=== PATIENT | male | born 1975 | race Caucasian/White ===

== ENCOUNTER 2023-03-02 03:57 | Day surgery (SDC) | payer MEDICARE | END 2023-03-02 23:03 | disposition home or self-care (01) | LOC: WOUND 03:57 | DX: L89.224 Pressure ulcer of left hip, stage 4 (principal); S30.810A Abrasion of lower back and pelvis, initial encounter; L89.153 Pressure ulcer of sacral region, stage 3; E11.69 Type 2 diabetes mellitus with other specified complication | CPT/HCPCS: A9270; G0463 ==

== ENCOUNTER 2023-03-10 04:24 | Day surgery (SDC) | payer MEDICARE | END 2023-03-10 22:58 | disposition home or self-care (01) | LOC: WOUND 04:24 | DX: L89.324 Pressure ulcer of left buttock, stage 4 (principal); S31.809A Unspecified open wound of unspecified buttock, initial encounter; E11.9 Type 2 diabetes mellitus without complications | CPT/HCPCS: A9270; G0463 ==

== ENCOUNTER 2023-03-16 01:54 | Day surgery (SDC) | payer MEDICARE, OTHER | END 2023-03-16 22:46 | disposition home or self-care (01) | LOC: WOUND 01:54 | DX: L89.324 Pressure ulcer of left buttock, stage 4 (principal); L89.153 Pressure ulcer of sacral region, stage 3; E11.69 Type 2 diabetes mellitus with other specified complication; G82.50 Quadriplegia, unspecified | CPT/HCPCS: A9270; G0463 ==

== ENCOUNTER 2023-03-30 05:05 | Day surgery (SDC) | payer MEDICARE, OTHER | END 2023-03-30 22:43 | disposition home or self-care (01) | LOC: WOUND 05:05 | DX: L89.224 Pressure ulcer of left hip, stage 4 (principal); L89.893 Pressure ulcer of other site, stage 3; E11.9 Type 2 diabetes mellitus without complications; E78.49 Other hyperlipidemia; L89.304 Pressure ulcer of unspecified buttock, stage 4; Z79.899 Other long term (current) drug therapy | CPT/HCPCS: 36415; 80053; 80061; 83036; 84443; 85025; A9270; G0463 ==

== ENCOUNTER 2023-04-06 06:28 | Inpatient (IN) | payer MEDICARE, OTHER ==
[~2023-04-06] VITALS: Ht 182.9 cm; Wt 95.2 kg
[2023-04-06] MEDS ORDERED: FAMO20 PO (06:47)
[2023-04-06] MEDS ORDERED: ATORVASTATIN CA20 MG PO (06:47)
[2023-04-06] MEDS ORDERED: BACL20 PO (06:47)
[2023-04-06] MEDS ORDERED: GLIP5 PO (06:48)
[2023-04-06] MEDS ORDERED: METF500 PO (06:52)
[2023-04-06] MEDS ORDERED: MIDO5 PO (06:52)
[2023-04-06 07:00] LABS: BASOPHILS ABSOLUTE AUTO 0.02 K/mm3 (0.00-0.23); BASOPHILS PERCENT AUTO 0 % (0-2); EOSINOPHILS PERCENT AUTO 0 % (0-6); Hematocrit 44.2 % (37.0-53.0); Hemoglobin 14.7 g/dL (13.5-17.5); IMMATURE GRAN ABSOLUTE AUTO 0.08 K/mm3 (0.00-0.10); IMMATURE GRAN PERCENT AUTO 0 % (0-1); LYMPHOCYTES ABSOLUTE AUTO 0.86 K/mm3 (0.84-5.20); LYMPHOCYTES PERCENT AUTO 5 % (21-46); MONOCYTES ABSOLUTE AUTO 0.82 K/mm3 (0.16-1.47); MONOCYTES PERCENT AUTO 4 % (4-13); Mean Corpuscular HGB 27.9 pg (26.0-34.0); Mean Corpuscular HGB Conc 33.3 g/dL (31.5-36.5); Mean Corpuscular Volume 84 fL (80-100); Mean Platelet Volume 9.5 fL (9.1-12.4); NEUTROPHILS ABSOLUTE AUTO 16.82 K/mm3 (1.96-9.15); NEUTROPHILS PERCENT AUTO 91 % (41-73); Platelet Count 315 K/mm3 (150-400); RDW Coefficient Variation 13.4 % (11.7-14.2); RDW Standard Deviation 40.4 fL (35.1-46.3); Red Blood Cell Count 5.26 M/mm3 (4.30-5.90)
[2023-04-06 07:18] LABS: Albumin, Blood 3.5 g/dL (3.4-5.0); Albumin/Globulin Ratio 0.7 (0.8-1.8); Bilirubin, Total 0.5 mg/dL (0.1-1.0); Bun/Creatinine Ratio 13.3 (12.0-20.0); Calcium, Blood 10.5 mg/dL (8.5-10.1); Creatinine, Blood 0.83 mg/dL (0.60-1.20); Potassium, Blood 4.5 mmol/L (3.5-5.5); Total Protein, Blood 8.5 g/dL (6.4-8.2)
[2023-04-06 08:23] LABS: Source, Urine Suprapubic Cath
[2023-04-06 08:44] LABS: Appearance, Urine Turbid (Clear); Blood, Urine 5+ (Neg); Color, Urine Yellow (P-Yellow); Glucose Qualitative, Urine Neg (Neg); Ketones, Urine 1+ (Neg); Leukocyte Esterase, Urine 3+ (Neg); Nitrite, Urine Pos (Neg); Protein, Urine 3+ (Neg); Specific Gravity, Urine 1.025 (1.003-1.022); Urobilinogen, Urine 3+ (Normal)
[2023-04-06 08:51] LABS: Bilirubin, Urine 1+ (Neg)
[2023-04-06 08:53] LABS: Bacteria Many /hpf; Calcium Oxalate Crystals Few /hpf; Squamous Epithelial Cells Rare /hpf (Few)
[2023-04-06 08:54] LABS: Amorphous Mod (0-Heavy)
[2023-04-06 10:29] VITALS: BP 110/65
--- NOTE | 2023-04-06 15:46 | NUR ---
WOUND CARE ORDER RECIEVED FOR SPECIAL MATTRESS. BED ORDERED THROUGH NURSING TEACHER SPECIALIST OFFICE. MAY ARRIVE THIS EVENING. PT AWARE. WOUND CARE PICTURE TAKEN PER PROTOCOL. POSTED IN CHART. WOUND CARE DONE. CLEANED WOUND WITH WOUND BRIQUETTE MOLDER, PACKED WITH WET 4X4 AND COVERED WITH PINK FOAM. SECURED WITH MEPILIEX TAPE. WOUND CARE CONSULT ORDERED. CONTINUE POC.
[2023-04-06 15:49] VITALS: BP 97/60
--- NOTE | 2023-04-06 18:08 | NUR ---
AIR BED AIR BED DELIVERED. PT TRANSFERED TO NEW AUTO TURNING AIR BED. PT TOLERATED WELL. CONTINUE POC.
--- NOTE | 2023-04-06 18:26 | NUR ---
NOTE PT ALERT, COOPERATIVE. AIR BED HERE. LARGE AMOUNT OF SOFT, BROWN STOOL OUT OSTOMY. APPLIANCE INTACT. VSS. PT HUNGRY. STILL NPO. SOFT TOUCH CALL LIGHT AFFIXED TO PILLOW NEXT TO HEAD. PT DECLINED THE AUTO TURN FUNCTION ON BED. HE IS USING HIS COMPUTER. DENIED PAIN, SOB. HE FEELS HIS STOMACH IS MUCH IMPROVED. IVF INFUSING AT 125 ML/HR. CONTINUE POC.
[2023-04-06 19:43] VITALS: BP 143/118
[2023-04-07 03:06] VITALS: BP 159/93
--- NOTE | 2023-04-07 04:41 | NUR ---
ALBERT SLEPT WELL AND HAD A COMFORTABLE NIGHT. MULTIPLE LOOSE BROWN STOOLS VIA COLONOSCOPY. PATIENT WAS ABLE TO DRINK AN ENTIRE CHOCHOLATE ENSURE WITHOUT DIFFICULTY. NO COMPLAINTS OR INDICATIONS OF PAIN OR DISCOMFORT.
[2023-04-07 06:17] LABS: Bun/Creatinine Ratio 13.1 (12.0-20.0); Calcium, Blood 9.2 mg/dL (8.5-10.1); Creatinine, Blood 0.69 mg/dL (0.60-1.20); Potassium, Blood 3.7 mmol/L (3.5-5.5)
[2023-04-07 07:13] VITALS: BP 149/87
--- NOTE | 2023-04-07 10:57 | NUR ---
WOUND CARE CALLED WOUND CARE CLINIC TO REQUEST PT BE SEEN BEFORE DISCHARGE.
[2023-04-07] MEDS ORDERED: DOCU100 PO (11:29)
[2023-04-07] MEDS ORDERED: MIRALAX17 GM PO (11:30)
[2023-04-07] MEDS ORDERED: DULCOLAX400 MG/5 M PO (11:30)
--- NOTE | 2023-04-07 12:11 | NUR ---
WOUND CARE CALLED WOUND CARE CLINIC TO CONFIRM TIME THAT PT COULD BE SEEN BEFORE DISCHARGE. TIME CONFIRMED FOR TIME BETWEEN 13:15-14:30.
--- NOTE | 2023-04-07 16:16 | NUR ---
DISCHARGE NOTE PT DISCHARGED AT APPROX 1400. PT WAS PROVIDED WITH WRITTEN AND VERBAL INSTRUCTIONS AND REPORTED UNDERSTANDING. PT A&OX4, VSS, TOLERATING PO, VOIDING APPROPRIATELY VIA SUPRAPUBIC CATHETER AND OSTOMY, REPORTED NO PAIN, AND IV REMOVED AND DRESSED WITH GAUZE AND COBAN. PT'S BELONGINGS WERE RETURNED AND WAS ESCOURTED OUT VIA GURNEY BY [facility] AND MYSELF.
== END 2023-04-07 16:08 | disposition home health service (06) | DRG 389 ==
LOC: ER 06:28 → MEDS 08:43 → SURS 08:43 → MEDS 10:10
PROVIDERS: Emergency Medicine; ADMIT Internal Medicine
DX: K56.609 Unspecified intestinal obstruction, unspecified as to partial versus complete obstruction (principal); E87.1 Hypo-osmolality and hyponatremia; G82.20 Paraplegia, unspecified; R82.90 Unspecified abnormal findings in urine; E11.9 Type 2 diabetes mellitus without complications; E78.5 Hyperlipidemia, unspecified; D72.829 Elevated white blood cell count, unspecified; K21.9 Gastro-esophageal reflux disease without esophagitis; Z87.442 Personal history of urinary calculi; Z93.3 Colostomy status; Z93.0 Tracheostomy status; Z98.1 Arthrodesis status; Z98.890 Other specified postprocedural states; Z87.891 Personal history of nicotine dependence; Z79.84 Long term (current) use of oral hypoglycemic drugs; Z79.899 Other long term (current) drug therapy
CPT/HCPCS: 36415; 74176; 80048; 80053; 81001; 82947; 85025; 87086; 96361; 96365; 99285-25; A9270; J0696; J1650; J7030

== ENCOUNTER 2023-04-13 01:11 | Day surgery (SDC) | payer MEDICARE, OTHER ==
[~2023-04-13 01:11] MED LIST: ATORVASTATIN CA20 MG PO; BACL20 PO; DOCU100 PO; DULCOLAX400 MG/5 M PO; FAMO20 PO; GLIP5 PO; METF500 PO; MIDO5 PO; MIRALAX17 GM PO
== END 2023-04-13 22:47 | disposition home or self-care (01) ==
LOC: WOUND 01:11
DX: L89.224 Pressure ulcer of left hip, stage 4 (principal); N50.89 Other specified disorders of the male genital organs; L89.893 Pressure ulcer of other site, stage 3; E11.9 Type 2 diabetes mellitus without complications
CPT/HCPCS: A9270

== ENCOUNTER 2023-04-22 00:45 | Day surgery (SDC) | payer MEDICARE, OTHER | END 2023-04-22 22:48 | disposition home or self-care (01) | LOC: WOUND 00:45 | DX: L89.224 Pressure ulcer of left hip, stage 4 (principal); L89.893 Pressure ulcer of other site, stage 3; E11.69 Type 2 diabetes mellitus with other specified complication; L89.324 Pressure ulcer of left buttock, stage 4 ==

== ENCOUNTER → 2023-04-27 | Outpatient (CLI) | payer MEDICARE, OTHER | END | disposition home or self-care (01) | LOC: LAB SHORT 14:07 → LAB 14:07 | DX: R30.0 Dysuria (principal) | CPT/HCPCS: 87086 ==

== ENCOUNTER 2023-05-18 02:23 | Day surgery (SDC) | payer MEDICARE, OTHER | END 2023-05-18 23:46 | disposition home or self-care (01) | LOC: WOUND 02:23 | DX: L89.324 Pressure ulcer of left buttock, stage 4 (principal); L89.92 Pressure ulcer of unspecified site, stage 2; E11.69 Type 2 diabetes mellitus with other specified complication; M86.9 Osteomyelitis, unspecified ==

== ENCOUNTER 2023-05-25 02:32 | Day surgery (SDC) | payer MEDICARE, OTHER | END 2023-05-25 23:19 | disposition home or self-care (01) | LOC: WOUND 02:32 | DX: L89.224 Pressure ulcer of left hip, stage 4 (principal); L89.324 Pressure ulcer of left buttock, stage 4; L89.92 Pressure ulcer of unspecified site, stage 2; E11.69 Type 2 diabetes mellitus with other specified complication; G82.50 Quadriplegia, unspecified ==

== ENCOUNTER 2023-06-01 05:06 | Day surgery (SDC) | payer MEDICARE, OTHER | END 2023-06-01 23:04 | disposition home or self-care (01) | LOC: WOUND 05:06 | DX: L89.224 Pressure ulcer of left hip, stage 4 (principal); L89.324 Pressure ulcer of left buttock, stage 4; L89.892 Pressure ulcer of other site, stage 2; E11.69 Type 2 diabetes mellitus with other specified complication ==

== ENCOUNTER 2023-06-08 02:34 | Day surgery (SDC) | payer MEDICARE, OTHER | END 2023-06-08 22:48 | disposition home or self-care (01) | LOC: WOUND 02:34 | DX: L89.324 Pressure ulcer of left buttock, stage 4 (principal); L89.92 Pressure ulcer of unspecified site, stage 2; E11.69 Type 2 diabetes mellitus with other specified complication ==

== ENCOUNTER 2023-06-15 04:46 | Day surgery (SDC) | payer MEDICARE, OTHER | END 2023-06-15 23:14 | disposition home or self-care (01) | LOC: WOUND 04:46 | DX: L89.324 Pressure ulcer of left buttock, stage 4 (principal); L89.92 Pressure ulcer of unspecified site, stage 2 ==

== ENCOUNTER 2023-06-22 02:00 | Day surgery (SDC) | payer MEDICARE, OTHER | END 2023-06-22 22:50 | disposition home or self-care (01) | LOC: WOUND 02:00 | DX: L89.324 Pressure ulcer of left buttock, stage 4 (principal); L89.92 Pressure ulcer of unspecified site, stage 2; E11.69 Type 2 diabetes mellitus with other specified complication | CPT/HCPCS: 72170; G0463 ==

== ENCOUNTER 2023-06-29 06:12 | Day surgery (SDC) | payer MEDICARE, OTHER | END 2023-06-29 22:58 | disposition home or self-care (01) | LOC: WOUND 06:12 | DX: L89.324 Pressure ulcer of left buttock, stage 4 (principal); L89.92 Pressure ulcer of unspecified site, stage 2; E11.69 Type 2 diabetes mellitus with other specified complication ==

== ENCOUNTER 2023-07-06 02:28 | Day surgery (SDC) | payer MEDICARE, OTHER | END 2023-07-06 22:44 | disposition home or self-care (01) | LOC: WOUND 02:28 | DX: L89.224 Pressure ulcer of left hip, stage 4 (principal); L89.92 Pressure ulcer of unspecified site, stage 2; E11.69 Type 2 diabetes mellitus with other specified complication; R53.2 Functional quadriplegia | CPT/HCPCS: G0463 ==

== ENCOUNTER 2023-07-13 01:55 | Day surgery (SDC) | payer MEDICARE, OTHER | END 2023-07-13 22:35 | disposition home or self-care (01) | LOC: WOUND 01:55 | DX: L89.324 Pressure ulcer of left buttock, stage 4 (principal); L89.92 Pressure ulcer of unspecified site, stage 2; E11.69 Type 2 diabetes mellitus with other specified complication; R53.2 Functional quadriplegia | CPT/HCPCS: G0463 ==

== ENCOUNTER 2023-07-20 02:13 | Day surgery (SDC) | payer MEDICARE, OTHER | END 2023-07-20 22:45 | disposition home or self-care (01) | LOC: WOUND 02:13 | DX: L89.324 Pressure ulcer of left buttock, stage 4 (principal); L89.92 Pressure ulcer of unspecified site, stage 2; E11.69 Type 2 diabetes mellitus with other specified complication; R53.2 Functional quadriplegia | CPT/HCPCS: G0463 ==

== ENCOUNTER 2023-07-27 03:17 | Day surgery (SDC) | payer MEDICARE, OTHER | END 2023-07-27 22:52 | disposition home or self-care (01) | LOC: WOUND 03:17 | DX: L89.324 Pressure ulcer of left buttock, stage 4 (principal); L89.92 Pressure ulcer of unspecified site, stage 2; E11.69 Type 2 diabetes mellitus with other specified complication; M86.9 Osteomyelitis, unspecified; R53.2 Functional quadriplegia | CPT/HCPCS: G0463 ==

== ENCOUNTER 2023-08-03 01:22 | Day surgery (SDC) | payer MEDICARE, OTHER | END 2023-08-03 22:46 | disposition home or self-care (01) | LOC: WOUND 01:22 | DX: L89.324 Pressure ulcer of left buttock, stage 4 (principal); L89.893 Pressure ulcer of other site, stage 3; L89.92 Pressure ulcer of unspecified site, stage 2; E11.69 Type 2 diabetes mellitus with other specified complication; R53.2 Functional quadriplegia | CPT/HCPCS: A9270; G0463 ==

== ENCOUNTER 2023-08-10 05:20 | Day surgery (SDC) | payer MEDICARE, OTHER | END 2023-08-10 22:50 | disposition home or self-care (01) | LOC: WOUND 05:20 | DX: L89.324 Pressure ulcer of left buttock, stage 4 (principal); L89.92 Pressure ulcer of unspecified site, stage 2; E11.69 Type 2 diabetes mellitus with other specified complication; R53.2 Functional quadriplegia | CPT/HCPCS: G0463 ==

== ENCOUNTER 2023-08-17 02:55 | Day surgery (SDC) | payer MEDICARE, OTHER | END 2023-08-17 22:43 | disposition home or self-care (01) | LOC: WOUND 02:55 | DX: L89.324 Pressure ulcer of left buttock, stage 4 (principal); L89.893 Pressure ulcer of other site, stage 3; E11.69 Type 2 diabetes mellitus with other specified complication; R53.2 Functional quadriplegia | CPT/HCPCS: G0463 ==

== ENCOUNTER 2023-08-31 02:49 | Day surgery (SDC) | payer MEDICARE, OTHER | END 2023-08-31 23:20 | disposition home or self-care (01) | LOC: WOUND 02:49 | DX: L89.324 Pressure ulcer of left buttock, stage 4 (principal); L89.893 Pressure ulcer of other site, stage 3; L89.92 Pressure ulcer of unspecified site, stage 2; E11.69 Type 2 diabetes mellitus with other specified complication; R53.2 Functional quadriplegia | CPT/HCPCS: G0463 ==

== ENCOUNTER 2023-09-07 02:51 | Day surgery (SDC) | payer MEDICARE, OTHER | END 2023-09-07 23:00 | disposition home or self-care (01) | LOC: WOUND 02:51 | DX: L89.324 Pressure ulcer of left buttock, stage 4 (principal); L89.894 Pressure ulcer of other site, stage 4; L89.92 Pressure ulcer of unspecified site, stage 2; L89.604 Pressure ulcer of unspecified heel, stage 4; R53.2 Functional quadriplegia; E11.69 Type 2 diabetes mellitus with other specified complication | CPT/HCPCS: 87070; 87077; 87147; 87186; 87205; G0463 ==

== ENCOUNTER 2023-09-14 02:54 | Day surgery (SDC) | payer MEDICARE, OTHER | END 2023-09-14 23:17 | disposition home or self-care (01) | LOC: WOUND 02:54 | DX: L89.224 Pressure ulcer of left hip, stage 4 (principal); E11.621 Type 2 diabetes mellitus with foot ulcer; L97.522 Non-pressure chronic ulcer of other part of left foot with fat layer exposed; L89.324 Pressure ulcer of left buttock, stage 4; E11.69 Type 2 diabetes mellitus with other specified complication; L89.604 Pressure ulcer of unspecified heel, stage 4; M19.072 Primary osteoarthritis, left ankle and foot; M81.0 Age-related osteoporosis without current pathological fracture; R53.2 Functional quadriplegia | CPT/HCPCS: 36415; 73630; 83036; 85025; 85651; 86140; G0463 ==

== ENCOUNTER 2023-09-21 01:32 | Day surgery (SDC) | payer MEDICARE, OTHER | END 2023-09-21 23:27 | disposition home or self-care (01) | LOC: WOUND 01:32 | DX: L89.224 Pressure ulcer of left hip, stage 4 (principal); E11.621 Type 2 diabetes mellitus with foot ulcer; L97.522 Non-pressure chronic ulcer of other part of left foot with fat layer exposed; L89.324 Pressure ulcer of left buttock, stage 4; R53.2 Functional quadriplegia; L89.604 Pressure ulcer of unspecified heel, stage 4 | CPT/HCPCS: G0463 ==

== ENCOUNTER 2023-09-24 21:00 | Inpatient (IN) | payer OTHER, MEDICARE ==
[~2023-09-24] VITALS: Ht 182.9 cm; Wt 84.8 kg
[2023-09-24] MEDS ORDERED: TIZANIDINE HCL2 M1 PO (21:16)
[2023-09-24] MEDS ORDERED: SULFAMETHOXAZO1 EAC1 PO (21:16)
[2023-09-24] MEDS ORDERED: FENOFIBRATE145 MG PO (21:16)
[2023-09-24] MEDS ORDERED: FAMO20 PO (21:17)
[2023-09-24 21:20] LABS: BASOPHILS ABSOLUTE AUTO 0.03 K/mm3 (0.00-0.23); BASOPHILS PERCENT AUTO 0 % (0-2); EOSINOPHILS ABSOLUTE AUTO 0.02 K/mm3 (0.00-0.68); EOSINOPHILS PERCENT AUTO 0 % (0-6); Hematocrit 42.3 % (37.0-53.0); Hemoglobin 14.3 g/dL (13.5-17.5); IMMATURE GRAN ABSOLUTE AUTO 0.06 K/mm3 (0.00-0.10); IMMATURE GRAN PERCENT AUTO 1 % (0-1); LYMPHOCYTES ABSOLUTE AUTO 0.91 K/mm3 (0.84-5.20); LYMPHOCYTES PERCENT AUTO 9 % (21-46); MONOCYTES ABSOLUTE AUTO 0.48 K/mm3 (0.16-1.47); MONOCYTES PERCENT AUTO 5 % (4-13); Mean Corpuscular HGB 26.9 pg (26.0-34.0); Mean Corpuscular HGB Conc 33.8 g/dL (31.5-36.5); Mean Corpuscular Volume 80 fL (80-100); Mean Platelet Volume 9.5 fL (9.1-12.4); NEUTROPHILS ABSOLUTE AUTO 8.87 K/mm3 (1.96-9.15); NEUTROPHILS PERCENT AUTO 86 % (41-73); Platelet Count 239 K/mm3 (150-400); RDW Coefficient Variation 13.9 % (11.7-14.2); RDW Standard Deviation 40.3 fL (35.1-46.3); Red Blood Cell Count 5.31 M/mm3 (4.30-5.90); White Blood Cell Count 10.37 K/mm3 (4.00-11.30)
[2023-09-24 21:48] LABS: Albumin, Blood 3.9 g/dL (3.4-5.0); Albumin/Globulin Ratio 0.9 (0.8-1.8); Bilirubin, Total 0.6 mg/dL (0.1-1.0); Bun/Creatinine Ratio 12.4 (12.0-20.0); Calcium, Blood 10.2 mg/dL (8.5-10.1); Creatinine, Blood 0.72 mg/dL (0.60-1.20); Globulin, Blood 4.5 g/dL (2.2-4.0); Potassium, Blood 4.4 mmol/L (3.5-5.5); Total Protein, Blood 8.4 g/dL (6.4-8.2)
[2023-09-24] MEDS ORDERED: NS 1,000 ML IV SCH ×2 (22:50)
[2023-09-24] MEDS ORDERED: HYDROmorphone HCl/Pf 1MG SYR IV ONE (22:50)
[2023-09-24] MEDS ORDERED: Ondansetron HCl 2 MG / ML 2ML Vial IV PRN (23:20)
[2023-09-24] MEDS ORDERED: FentaNYL Citrate 50 MCG/ML 2 ML Injection IV PRN (23:25)
[2023-09-24] MEDS ORDERED: FLU VACC QS2023-24(6MOS UP)/PF 60 MCG/0.5 ML SYRINGE IM ONE (23:25)
[2023-09-25] VITALS (11 sets, daily range): BP systolic 101–151; BP diastolic 74–93
[2023-09-25] MEDS ORDERED: Insulin Human Lispro 100 Units/ML 3ML Syringe SC SCH
--- NOTE | 2023-09-25 00:30 | NUR ---
ASSUMED CARE OF PT AT 0024 PT A/O X4 UPON ARRIVAL. SUPRAPUBIC CATH DRAINING TO GRAVITY WITH YELLOW URINE PRESENT. INT SUCTION TO NG TUBE WITH FULL CANISTER UPON ARRIVAL. CONTENTS FROM NG TUBE IS BROWN WITH SLIGHT YURY OF RED. PT REPORTS HAVING EATEN A SPICY HOT BEEF BURRITO FOR LUNCH. IV IN RIGHT LOWER ARM NOT DRAWING BACK BLOOD. NEW IV INSERTED BY HAIR FABIAN. ALL VITALS WNL. PT HAS STAGE 4 SACRUM WOUND WITH DRESSING INTACT. THIS RN LOOKED UNDER BANDAGE. PACKING PRESENT INSIDE WOUND. PT REPORTS THE BADAGE WAS PUT ON HOURS BEFORE COMING TO HOSPITAL. WOUND ON LEFT EXT HEEL WITH PIC IN CHART. PT REPORTS HAVING MUSCLE SPASMS. SEE FULL ASSESSMENT FOR FURTHER INFORMATION.
[2023-09-25] MEDS ORDERED: NS 1,000 ML IV SCH (00:57)
[2023-09-25 05:04] LABS: Bun/Creatinine Ratio 11.9 (12.0-20.0); Calcium, Blood 9.8 mg/dL (8.5-10.1); Creatinine, Blood 0.67 mg/dL (0.60-1.20); Potassium, Blood 4.1 mmol/L (3.5-5.5)
[2023-09-25] MEDS ORDERED: Pantoprazole Sodium 40 MG Injection IV SCH (06:00)
[2023-09-25] MEDS ORDERED: Enoxaparin 40 MG/0.4 ML SYR SC SCH (09:00)
--- NOTE | 2023-09-25 18:45 | NUR ---
Shift summary. Pt in bed throughout shift. Surgeon rounded this afternoon. Colostomy output significantly increased last half of shift. NG tube in place, output slowly decreased throughout shift. Pt A&O x4, able to direct care based on home regiment. Q2 turns this shift. Stage IV sacral ulcer not visualized or photographed this shift per patient request to wait for wound care nurse visit tomorrow, physician aware and ok with plan. No acute events this shift, see chart for further details. Will report off to nightshift RN.
--- NOTE | 2023-09-26 05:08 | NUR ---
SHIFT SUMMARY PT RESTLESS MOST OF THE NIGHT WITH C/O SEVERE MUSCLE SPASMS. EMAR MEDS ARE BECOMING NOT ENOUGH TO MANAGE THE PAIN. SIGNIFICANT OUTPUT FROM NG WITH 1600 OUT THIS SHIFT. FLUID OUT OF NG IS DARK BROWN. OSTOMY BAG BURPED MULTIPLE TIMES THIS SHIFT WITH 2 EMPTYING NEEDED. SEE I/O'S. ALL VITALS WNL. NO OTHER CHANGES TO REPORT AT THIS TIME. WILL CONTINUE TO MONITOR UNTIL DAY RN GIVEN REPORT.
--- NOTE | 2023-09-26 05:38 | NUR ---
PT REFUSING BLOOD DRAWS.
[2023-09-26] MEDS ORDERED: FentaNYL Citrate 50 MCG/ML 2 ML Injection IV PRN (07:25)
--- NOTE | 2023-09-26 07:40 | NUR ---
ASSUMED CARE: PT RESTING IN BED, NG TUBE TO LIS DRAINING BROWN FLUID. OSTOMY DRAINING BROWN LIQUID. PT IS ON RA, NO TELE. DENIES FURTHER NEEDS OR CONCERNS AT THIS TIME. CALLED AND LEFT A MESSAGE FOR WOUND CARE NURSE TO ADDRESS PT'S ULCER
[2023-09-26 08:14] VITALS: BP 149/97
[2023-09-26] MEDS ORDERED: NS 1,000 ML IV SCH (09:05)
[2023-09-26 09:21] LABS: BASOPHILS ABSOLUTE AUTO 0.01 K/mm3 (0.00-0.23); BASOPHILS PERCENT AUTO 0 % (0-2); EOSINOPHILS ABSOLUTE AUTO 0.01 K/mm3 (0.00-0.68); EOSINOPHILS PERCENT AUTO 0 % (0-6); Hematocrit 37.1 % (37.0-53.0); Hemoglobin 12.4 g/dL (13.5-17.5); IMMATURE GRAN ABSOLUTE AUTO 0.02 K/mm3 (0.00-0.10); IMMATURE GRAN PERCENT AUTO 0 % (0-1); LYMPHOCYTES ABSOLUTE AUTO 0.94 K/mm3 (0.84-5.20); LYMPHOCYTES PERCENT AUTO 14 % (21-46); MONOCYTES ABSOLUTE AUTO 0.53 K/mm3 (0.16-1.47); MONOCYTES PERCENT AUTO 8 % (4-13); Mean Corpuscular HGB 27.1 pg (26.0-34.0); Mean Corpuscular HGB Conc 33.4 g/dL (31.5-36.5); Mean Corpuscular Volume 81 fL (80-100); Mean Platelet Volume 9.5 fL (9.1-12.4); NEUTROPHILS ABSOLUTE AUTO 5.32 K/mm3 (1.96-9.15); NEUTROPHILS PERCENT AUTO 78 % (41-73); Platelet Count 187 K/mm3 (150-400); RDW Coefficient Variation 14.5 % (11.7-14.2); RDW Standard Deviation 41.9 fL (35.1-46.3); Red Blood Cell Count 4.58 M/mm3 (4.30-5.90); White Blood Cell Count 6.83 K/mm3 (4.00-11.30)
[2023-09-26 09:43] LABS: Albumin, Blood 3.3 g/dL (3.4-5.0); Albumin/Globulin Ratio 0.9 (0.8-1.8); Bilirubin, Total 0.6 mg/dL (0.1-1.0); Bun/Creatinine Ratio 14.4 (12.0-20.0); Calcium, Blood 8.7 mg/dL (8.5-10.1); Creatinine, Blood 0.77 mg/dL (0.60-1.20); Globulin, Blood 3.8 g/dL (2.2-4.0); Magnesium, Blood 1.5 mg/dL (1.6-2.4); Phosphorus, Blood 2.2 mg/dL (2.5-4.9); Potassium, Blood 3.7 mmol/L (3.5-5.5); Total Protein, Blood 7.1 g/dL (6.4-8.2)
--- NOTE | 2023-09-26 09:46 | NUR ---
WOUND CARE NURSE CALLED AND STATED SHE WOULD BE UNABLE TO SEE PT TODAY BUT GAVE INSTRUCTIONS TO WHAT HAS BEEN USED. STATED SHE COULD SEE PT TOMORROW. PT MADE AWARE AND WAS AGREEABLE TO STAFF CHANGING DRESSING TODAY. STATED HE WOULD CALL HIS CAREGIVER TO BRING HIS SUPPLIES. OFFERED TO USE OURS BUT PT PREFERRED HIS OWN.
--- NOTE | 2023-09-26 11:57 | NUR ---
DRESSING CHANGED TO COCCYX AND HEAL WOUNDS. NEW PICTURES TAKEN. NEW ORDERS FROM DR GARRETT FOR NG TO GRAVITY. SUCTION OFF AT THIS TIME. PT AWARE TO CALL IF ANY NAUSEA OR DISCOMFORT NOW NOTED.
--- NOTE | 2023-09-26 12:26 | NUR ---
DR GARRETT CAME TO SEE PT AND IS AWARE THAT NG IS TO GRAVITY. STATED THAT PT CAN TRY CLEAR LIQUIDS AND DEPENDING ON TOLERANCE NG TUBE MAY BE ABLE TO BE REMOVED IN THE NEAR FUTURE. PT AGREEABLE AND CAREGIVER AT BEDSIDE.
[2023-09-26] MEDS ORDERED: Potassium Phosphate Dibasic 30 MM in Dextrose 5% 500 ML IV STA (15:14)
[2023-09-26] MEDS ORDERED: Magnesium Sulf 2 GM/Water 50ML 50 ML IV ONE (15:15)
--- NOTE | 2023-09-26 15:29 | NUR ---
CALL TO DR GARRETT TO UPDATE ON STATUS AND TO RELAY THAT DR ABDI ORDERED ORAL MEDICATIONS. DR CLEARED PT TO TAKE PO AND STATES THAT IF HE TOLERATES DINNER, WE CAN REMOVE NG TUBE.
[2023-09-26] MEDS ORDERED: Baclofen 10 MG Tab PO SCH (17:00)
--- NOTE | 2023-09-26 18:38 | NUR ---
SHIFT SUMMARY: PT ATE DINNER WITH ASSISTANCE AND TOLERATED WELL SO FAR. NG TUBE REMAINS IN PLACE AT THIS TIME TO DETERMINE HOW WELL PT TOLERATED MEAL. COLOSTOMY CONTINUES TO PUT OUT BROWN LIQUID AND PT STATED HE WAS PASSING GAS IN OSTOMY WELL RECTALLY. DIRECTOR EMPLOYEE COMMUNICATIONS CAME TO SEE PT TODAY AND PT UPDATED HER ON STATUS. NO FURTHER NEEDS OR CONCERNS AT THIS TIME.
[2023-09-26] MEDS ORDERED: Docusate Sodium 100 MG Cap PO SCH (21:00)
[2023-09-26] MEDS ORDERED: TiZANidine HCl 4 MG Tab PO SCH (21:00)
[2023-09-26] MEDS ORDERED: Famotidine 20 MG Tab PO SCH (21:00)
[2023-09-26 21:29] VITALS: BP 123/108
[2023-09-27 02:29] VITALS: BP 125/85
[2023-09-27] MEDS ORDERED: Pantoprazole Sodium 40 MG Injection IV SCH (06:00)
--- NOTE | 2023-09-27 06:04 | NUR ---
SHIFT SUMMARY: PT RESTING COMFORTABLY IN BED. NG TUBE WAS PULLED PER ORDER AT 2130 WITH NO COMPLICATIONS. HE WAS ABLE TO TOLORATE DINNER AND MEDICATIONS WITH NO ABD PAIN, NAUSEA, OR VOMITING. HE HAS C/O INTERMITTENT PAIN IN HIS LOWER EXTREMITIES, BUT THINKS THAT WHEN HE GETS BACK ON HIS NORMAL BACLOFEN ROUTINE HE SHOULD NOT NEED ANY ADDITIONAL TREATMENT. PT STATES THAT HE IS FEELING BETTER AND FEELS LIKE HIS IS READY FOR DISCHARGE.
[2023-09-27 06:05] LABS: Anion Gap 4 mmol/L (6-16); Blood Urea Nitrogen 6 mg/dL (8-24); Bun/Creatinine Ratio 9.4 (12.0-20.0); CO2, Blood 25 mmol/L (21-32); Calcium, Blood 8.7 mg/dL (8.5-10.1); Chloride, Blood 104 mmol/L (98-108); Creatinine, Blood 0.64 mg/dL (0.60-1.20); Glomerular Filtration Rate 115 (60-); Glucose, Blood 86 mg/dL (70-99); Magnesium, Blood 1.8 mg/dL (1.6-2.4); Phosphorus, Blood 3.7 mg/dL (2.5-4.9); Potassium, Blood 3.6 mmol/L (3.5-5.5); Sodium, Blood 133 mmol/L (136-145)
[2023-09-27] MEDS ORDERED: Baclofen 10 MG Tab PO SCH (07:32)
[2023-09-27] MEDS ORDERED: TiZANidine HCl 4 MG Tab PO SCH (07:35)
[2023-09-27 08:18] VITALS: BP 139/88
--- NOTE | 2023-09-27 08:20 | NUR ---
INITIAL ASSESSMENT PATIENT ALERT AND ORIENTED X 4, AFEBRILE. PATIENT DENIES PAIN. PATIENT QUADRAPLEGIC. PATIENT HAS SPASICITY AT TIMES IN ALL EXTREMITIES. PATIENT SATTING 90% AND GREATER ON RA. LUNGS CLEAR TO AUSCULTATION. HR IN THE 80S. SBP IN THE 130S. COLOSTOMY DRAINING BROWN LIQUID STOOL. CHRONIC SUPRAPUBIC LEWIS DRAINING YELLOW COLORED URINE. ULCERS NOTED TO R HEEL AND SACRUM. PATIENT BEING REPOSITIONED Q2H AND PRN. BED LOW. CARE CONTINUES.
[2023-09-27] MEDS ORDERED: Atorvastatin 10 MG Tab PO SCH (09:00)
[2023-09-27] MEDS ORDERED: Fenofibrate, Micronized 134 MG Capsule PO SCH ×2 (09:00)
[2023-09-27 12:53] VITALS: BP 134/90
--- NOTE | 2023-09-27 13:00 | NUR ---
PATIENT HAS TEMP OF 99.0 DEGREES FAHRENHEIT. HR IN THE 80S. SBP IN THE 130S. NO COMPLAINTS OF PAIN. NO ACUTE CHANGES TO NOTE ON AT THIS TIME. CARE CONTINUES.
--- NOTE | 2023-09-27 13:07 | NUR ---
SHIFT SUMMARY PATIENT REMAINED ALERT AND ORIENTED X 4, AFEBRILE. PATIENT HAD NO COMPLAINTS OF PAIN THIS SHIFT. PATIENT PLAYED ON COMPUTER FROM HOME AND HOME PHONE IN ROOM WHILE WATCHING TV. PATIENT REMAINED SATTING 90% AND GREATER ON RA. PATIENT REMAINED WITH HR IN 80S AND SBP IN THE 130S. COLOSTOMY DRAINED 75 MLS OF BROWN, LIQUID STOOL. SUPRAPUBIC CATHETER DRAINED 1050 MLS OF YELLOW COLORED URINE. NO CHANGES TO SKIN NOTED. PATIENT REPOSITIONED THROUGHOUT SHIFT. PATIENT TO BE DISCHARGED TO HOME SHORTLY.
--- NOTE | 2023-09-27 16:08 | NUR ---
PATIENT SUCCESSFULLY DISCHARGE TO HOME WITH [facility]. ALL BELONGINGS TAKEN HOME BY PATIENT'S CAREGIVER. DISCHARGE COMPLETE.
== END 2023-09-27 16:10 | disposition home or self-care (01) | DRG 388 ==
LOC: ER 21:00 → ICUE 23:21 → ERHOLD 23:21 → ICUE 09-25 00:08
PROVIDERS: Emergency Medicine; Internal Medicine; ADMIT Internal Medicine
PROC: 0D9670Z Drainage of Stomach with Drainage Device, Via Natural or Artificial Opening (ICD-10-PCS; principal; 2023-09-24)
DX: K56.50 Intestinal adhesions [bands], unspecified as to partial versus complete obstruction (principal); G82.50 Quadriplegia, unspecified; L89.224 Pressure ulcer of left hip, stage 4; L89.604 Pressure ulcer of unspecified heel, stage 4; L89.324 Pressure ulcer of left buttock, stage 4; L89.154 Pressure ulcer of sacral region, stage 4; E87.1 Hypo-osmolality and hyponatremia; S14.104S Unspecified injury at C4 level of cervical spinal cord, sequela; V89.2XXS Person injured in unspecified motor-vehicle accident, traffic, sequela; E11.9 Type 2 diabetes mellitus without complications; E78.5 Hyperlipidemia, unspecified; K80.20 Calculus of gallbladder without cholecystitis without obstruction; K21.9 Gastro-esophageal reflux disease without esophagitis; I10 Essential (primary) hypertension; K59.09 Other constipation; L89.629 Pressure ulcer of left heel, unspecified stage; Z98.1 Arthrodesis status; Z79.2 Long term (current) use of antibiotics; Z79.84 Long term (current) use of oral hypoglycemic drugs; Z93.3 Colostomy status; Z93.50 Unspecified cystostomy status; Z87.891 Personal history of nicotine dependence; E11.621 Type 2 diabetes mellitus with foot ulcer; L97.522 Non-pressure chronic ulcer of other part of left foot with fat layer exposed
CPT/HCPCS: 36415; 71045; 74177; 80048; 80053; 80069; 82947; 83690; 83735; 84100; 85025; 94762; 96361; 96374-59; 99285-25; A9270; C9113; G0463; J1170; J1650; J2405; J3010; J3475; J7030; J7060; Q9967

== ENCOUNTER 2023-10-05 05:27 | Day surgery (SDC) | payer MEDICARE, OTHER ==
[~2023-10-05 05:27] MED LIST changes: +FENOFIBRATE145 MG PO; +SULFAMETHOXAZO1 EAC1 PO; +TIZANIDINE HCL2 M1 PO
== END 2023-10-05 22:56 | disposition home or self-care (01) ==
LOC: WOUND 05:27
DX: L89.224 Pressure ulcer of left hip, stage 4 (principal); E11.621 Type 2 diabetes mellitus with foot ulcer; L97.522 Non-pressure chronic ulcer of other part of left foot with fat layer exposed; L89.152 Pressure ulcer of sacral region, stage 2; L89.324 Pressure ulcer of left buttock, stage 4; R53.2 Functional quadriplegia
CPT/HCPCS: A6196; A6213; G0463

== ENCOUNTER 2023-10-12 02:06 | Day surgery (SDC) | payer MEDICARE, OTHER | END 2023-10-12 22:51 | disposition home or self-care (01) | LOC: WOUND 02:06 | DX: E11.621 Type 2 diabetes mellitus with foot ulcer (principal); L97.425 Non-pressure chronic ulcer of left heel and midfoot with muscle involvement without evidence of necrosis; L89.324 Pressure ulcer of left buttock, stage 4; L89.92 Pressure ulcer of unspecified site, stage 2; E11.69 Type 2 diabetes mellitus with other specified complication; R53.2 Functional quadriplegia; L89.604 Pressure ulcer of unspecified heel, stage 4 | CPT/HCPCS: A6213; G0463 ==

== ENCOUNTER 2023-12-02 04:29 | Day surgery (SDC) | payer MEDICARE, OTHER | END 2023-12-02 22:55 | disposition home or self-care (01) | LOC: WOUND 04:29 | DX: E11.621 Type 2 diabetes mellitus with foot ulcer (principal); L97.522 Non-pressure chronic ulcer of other part of left foot with fat layer exposed; L89.604 Pressure ulcer of unspecified heel, stage 4; L89.324 Pressure ulcer of left buttock, stage 4; E11.69 Type 2 diabetes mellitus with other specified complication; R53.2 Functional quadriplegia | CPT/HCPCS: A6213 ==

== ENCOUNTER 2023-12-16 04:01 | Day surgery (SDC) | payer MEDICARE, OTHER | END 2023-12-16 22:58 | disposition home or self-care (01) | LOC: WOUND 04:01 | DX: E11.621 Type 2 diabetes mellitus with foot ulcer (principal); L97.422 Non-pressure chronic ulcer of left heel and midfoot with fat layer exposed; L89.324 Pressure ulcer of left buttock, stage 4; L89.92 Pressure ulcer of unspecified site, stage 2; E11.69 Type 2 diabetes mellitus with other specified complication; R53.2 Functional quadriplegia | CPT/HCPCS: A6213; G0463 ==

== ENCOUNTER 2023-12-23 05:16 | Day surgery (SDC) | payer MEDICARE, OTHER | END 2023-12-23 22:39 | disposition home or self-care (01) | LOC: WOUND | DX: E11.621 Type 2 diabetes mellitus with foot ulcer (principal); L97.528 Non-pressure chronic ulcer of other part of left foot with other specified severity; L89.324 Pressure ulcer of left buttock, stage 4; L89.623 Pressure ulcer of left heel, stage 3; E11.69 Type 2 diabetes mellitus with other specified complication; R53.2 Functional quadriplegia ==

== ENCOUNTER 2024-02-10 03:08 | Day surgery (SDC) | payer MEDICARE, OTHER ==
[~2024-02-10 03:08] MED LIST changes: +Acetaminophen650 M1 PO
== END 2024-02-10 23:11 | disposition home or self-care (01) ==
LOC: WOUND 03:08
DX: L89.324 Pressure ulcer of left buttock, stage 4 (principal); L89.92 Pressure ulcer of unspecified site, stage 2; L89.604 Pressure ulcer of unspecified heel, stage 4; E11.59 Type 2 diabetes mellitus with other circulatory complications; E11.621 Type 2 diabetes mellitus with foot ulcer; R53.2 Functional quadriplegia
CPT/HCPCS: A6213; G0463

== ENCOUNTER 2024-02-17 02:27 | Day surgery (SDC) | payer MEDICARE, OTHER | END 2024-02-17 23:14 | disposition home or self-care (01) | LOC: WOUND 02:27 | DX: L89.324 Pressure ulcer of left buttock, stage 4 (principal); L89.92 Pressure ulcer of unspecified site, stage 2; L89.604 Pressure ulcer of unspecified heel, stage 4; E11.69 Type 2 diabetes mellitus with other specified complication; E11.621 Type 2 diabetes mellitus with foot ulcer; R53.2 Functional quadriplegia | CPT/HCPCS: A6213; G0463 ==

== ENCOUNTER 2024-02-24 01:26 | Day surgery (SDC) | payer MEDICARE, OTHER | END 2024-02-24 22:39 | disposition home or self-care (01) | LOC: WOUND 01:26 | DX: L89.324 Pressure ulcer of left buttock, stage 4 (principal); E11.621 Type 2 diabetes mellitus with foot ulcer; L97.429 Non-pressure chronic ulcer of left heel and midfoot with unspecified severity; R53.2 Functional quadriplegia | CPT/HCPCS: A6213; G0463 ==

== ENCOUNTER 2024-03-02 05:40 | Day surgery (SDC) | payer MEDICARE, OTHER | END 2024-03-02 22:47 | disposition home or self-care (01) | LOC: WOUND 05:40 | DX: L89.324 Pressure ulcer of left buttock, stage 4 (principal); L89.92 Pressure ulcer of unspecified site, stage 2; E11.69 Type 2 diabetes mellitus with other specified complication; L89.604 Pressure ulcer of unspecified heel, stage 4; R53.2 Functional quadriplegia; E11.621 Type 2 diabetes mellitus with foot ulcer ==

== ENCOUNTER 2024-03-09 01:58 | Day surgery (SDC) | payer MEDICARE, OTHER | END 2024-03-09 23:00 | disposition home or self-care (01) | LOC: WOUND 01:58 | DX: L89.324 Pressure ulcer of left buttock, stage 4 (principal); E11.69 Type 2 diabetes mellitus with other specified complication; R53.2 Functional quadriplegia ==

== ENCOUNTER 2024-04-06 03:26 | Day surgery (SDC) | payer MEDICARE, OTHER | END 2024-04-06 23:46 | disposition home or self-care (01) | LOC: WOUND 03:26 | DX: L89.224 Pressure ulcer of left hip, stage 4 (principal); E11.9 Type 2 diabetes mellitus without complications; I95.9 Hypotension, unspecified ==

== ENCOUNTER 2024-04-13 01:30 | Day surgery (SDC) | payer MEDICARE, OTHER | END 2024-04-13 23:11 | disposition home or self-care (01) | LOC: WOUND 01:30 | DX: L89.324 Pressure ulcer of left buttock, stage 4 (principal); E11.69 Type 2 diabetes mellitus with other specified complication; L89.604 Pressure ulcer of unspecified heel, stage 4; R53.2 Functional quadriplegia ==

== ENCOUNTER 2024-04-20 01:56 | Day surgery (SDC) | payer MEDICARE, OTHER | END 2024-04-20 23:27 | disposition home or self-care (01) | LOC: WOUND 01:56 | DX: L89.324 Pressure ulcer of left buttock, stage 4 (principal); L89.604 Pressure ulcer of unspecified heel, stage 4; E11.621 Type 2 diabetes mellitus with foot ulcer; E11.69 Type 2 diabetes mellitus with other specified complication; R53.2 Functional quadriplegia ==

== ENCOUNTER 2024-05-04 04:52 | Day surgery (SDC) | payer MEDICARE, OTHER | END 2024-05-05 01:38 | disposition home or self-care (01) | LOC: WOUND 04:52 | DX: L89.324 Pressure ulcer of left buttock, stage 4 (principal); L89.604 Pressure ulcer of unspecified heel, stage 4; L89.92 Pressure ulcer of unspecified site, stage 2; E11.69 Type 2 diabetes mellitus with other specified complication ==

== ENCOUNTER 2024-05-17 12:14 | Inpatient (IN) | payer MEDICARE, OTHER ==
[~2024-05-17] VITALS: Ht 182.9 cm; Wt 80.7 kg
[2024-05-17] MEDS ORDERED: NS 1,000 ML IV SCH ×3 (12:20→15:10)
[2024-05-17] MEDS ORDERED: Ondansetron HCl 2 MG / ML 2ML Vial IV ONE (12:20)
[2024-05-17 13:15] LABS: BASOPHILS ABSOLUTE AUTO 0.02 K/mm3 (0.00-0.23); BASOPHILS PERCENT AUTO 0 % (0-2); EOSINOPHILS ABSOLUTE AUTO 0.01 K/mm3 (0.00-0.68); EOSINOPHILS PERCENT AUTO 0 % (0-6); Hematocrit 42.9 % (37.0-53.0); Hemoglobin 14.6 g/dL (13.5-17.5); IMMATURE GRAN PERCENT AUTO 1 % (0-1); LYMPHOCYTES ABSOLUTE AUTO 0.83 K/mm3 (0.84-5.20); LYMPHOCYTES PERCENT AUTO 5 % (21-46); MONOCYTES ABSOLUTE AUTO 1.76 K/mm3 (0.16-1.47); MONOCYTES PERCENT AUTO 12 % (4-13); Mean Corpuscular Volume 79 fL (80-100); Mean Platelet Volume 9.9 fL (9.1-12.4); NEUTROPHILS ABSOLUTE AUTO 12.51 K/mm3 (1.96-9.15); NEUTROPHILS PERCENT AUTO 82 % (41-73); Platelet Count 244 K/mm3 (150-400); RDW Coefficient Variation 14.8 % (11.7-14.2); RDW Standard Deviation 42.2 fL (35.1-46.3); Red Blood Cell Count 5.41 M/mm3 (4.30-5.90); White Blood Cell Count 15.23 K/mm3 (4.00-11.30)
[2024-05-17 13:31] LABS: Albumin, Blood 3.7 g/dL (3.4-5.0); Albumin/Globulin Ratio 0.8 (0.8-1.8); Bilirubin, Total 0.7 mg/dL (0.1-1.0); Bun/Creatinine Ratio 15.2 (12.0-20.0); Calcium, Blood 10.4 mg/dL (8.5-10.1); Creatinine, Blood 1.45 mg/dL (0.60-1.20); Globulin, Blood 4.8 g/dL (2.2-4.0); Potassium, Blood 4.3 mmol/L (3.5-5.5); Total Protein, Blood 8.5 g/dL (6.4-8.2)
[2024-05-17] MEDS ORDERED: FLU VACC TS2024-25(6MOS UP)/PF 45 MCG/0.5 ML SYRINGE IM SCH (15:10)
[2024-05-17] MEDS ORDERED: Ondansetron HCl 2 MG / ML 2ML Vial IV PRN (15:10)
[2024-05-17] MEDS ORDERED: FentaNYL Citrate 50 MCG/ML 2 ML Injection IV PRN (15:10)
[2024-05-17] MEDS ORDERED: LINZESS145 MCG PO (15:29)
[2024-05-17 18:26] VITALS: BP 89/63
[2024-05-17 19:29] VITALS: BP 87/64
[2024-05-18 02:35] VITALS: BP 138/97
[2024-05-18] MEDS ORDERED: TiZANidine HCl 4 MG Tab PO SCH (03:30)
[2024-05-18] MEDS ORDERED: Baclofen 10 MG Tab PO SCH (03:30)
[2024-05-18 05:48] LABS: Hematocrit 33.8 % (37.0-53.0); Hemoglobin 11.5 g/dL (13.5-17.5); Mean Corpuscular HGB 26.6 pg (26.0-34.0); Mean Corpuscular Volume 78 fL (80-100); Platelet Count 202 K/mm3 (150-400); RDW Coefficient Variation 14.6 % (11.7-14.2); RDW Standard Deviation 41.7 fL (35.1-46.3); Red Blood Cell Count 4.32 M/mm3 (4.30-5.90); White Blood Cell Count 6.14 K/mm3 (4.00-11.30)
[2024-05-18 06:15] LABS: Bun/Creatinine Ratio 29.8 (12.0-20.0); Calcium, Blood 9.8 mg/dL (8.5-10.1); Creatinine, Blood 0.7 mg/dL (0.60-1.20); Potassium, Blood 3.9 mmol/L (3.5-5.5)
--- NOTE | 2024-05-18 06:18 | NUR ---
SHIFT SUMMARY PT A&Ox4 AND PLEASANT. PT DENIED ABD PAIN. PT STATED ABD WAS LESS DISTENDED AND TIGHT. PT PRODUCING BROWN, LOOSE STOOL THOUGH COLOSTOMY BAD. SUPRAPUBIC CATH IN PLACE AND DRAINING TO GRAVITY. PT STATED CATHETER WAS DUE TO BE CHANGED ON 05/21 AND DECLINED TO HAVE IT DONE HERE, AT THIS TIME. HOME WOUND VAC IN PLACE. FLUIDS INFUSING PER EMAR. PT DOES HAVE MUSCLE SPASMS AND WAS MEDICATED PER EMAR. PT UNABLE TO USE CALL LIGHT BUT WILL CALL OUT TO TODD FOR NEEDS. SCD's IN PLACE. BED IN LOWEST POSITION AND CALL LIGHT IN REACH.
[2024-05-18 07:45] VITALS: BP 80/59
[2024-05-18 08:53] VITALS: BP 83/60
[2024-05-18 08:56] VITALS: BP 96/63
[2024-05-18] MEDS ORDERED: Docusate Sodium 250 MG Cap PO SCH (11:00)
[2024-05-18 17:13] VITALS: BP 109/92
[2024-05-18 19:28] VITALS: BP 84/64
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
[2024-05-19 03:27] VITALS: BP 140/86
[2024-05-19 07:37] VITALS: BP 121/80
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
[2024-05-19] MEDS ORDERED: Atorvastatin 10 MG Tab PO SCH (09:00)
[2024-05-19] MEDS ORDERED: Fenofibrate, Micronized 134 MG Capsule PO SCH (09:00)
[2024-05-19 14:57] VITALS: BP 97/69
--- NOTE | 2024-05-19 17:24 | NUR ---
SHIFT NOTE: PT A/OX4 ABLE TO USE SOFT TOUCH CALL LIGHT TO MAKE NEEDS KNOWN. HIS BLOOD SUGAR WAS SLIGHTLY LOW THIS AM, RESPONDED TO ORAL APPLE JUICE. HIS VSS. HE HAS BEEN REPOSITIONED T/O SHIFT. HIS COLOSTOMY HAS HAD OUTPUT T/O SHIFT, LIQUID BROWN. HE HAS A SUPERPUBIC CATH DRAINING TO GRAVITY. WOUND VAC TO COCCYX, CHANGED 05/18. HE HAS TOLERATED A FULL LIQUID DIET. WILL CONTINUE TO MONITOR AND REPORT TO ONCOMING RUI
[2024-05-19 19:50] VITALS: BP 108/77
[2024-05-19] MEDS ORDERED: Famotidine 20 MG Tab PO SCH (21:00)
[2024-05-19] MEDS ORDERED: Arginine/Glutamine/Calcium Hmb 1 Packet PO SCH (21:00)
[2024-05-20 04:09] VITALS: BP 182/97
[2024-05-20 04:15] VITALS: BP 117/78
[2024-05-20 05:25] LABS: Bun/Creatinine Ratio 20.7 (12.0-20.0); Calcium, Blood 9.2 mg/dL (8.5-10.1); Creatinine, Blood 0.63 mg/dL (0.60-1.20); Potassium, Blood 3.6 mmol/L (3.5-5.5)
[2024-05-20 07:44] VITALS: BP 92/67
--- NOTE | 2024-05-20 07:58 | NUR ---
SHIFT SUMMARY NOC. PT ADMIT FOR SBO. PT A/O X4, PT QUADRIPLEGIC. OSTOMY PRESENT IN LLQ AND PRODUCING OUTPUT, SUPRA PUBIC CATH PRODUCING URINE, WOUND VAC PATENT TO LEFT BUTTOCK. PT MEDICATED FOR PAIN X1 WITH REPORTED RELIEF. PT TURNED EVERY 2 HOURS. PT TOLERATING ORAL FLUIDS. BED IN LOWEST POSITION, SOFT TOUCH CALL LIGHT IN REACH.
[2024-05-20] MEDS ORDERED: LINACLOTIDE 145 MCG PO SCH (09:00)
[2024-05-20] MEDS ORDERED: MetFORMIN HCl 500 mg PO SCH (09:00)
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
== END 2024-05-20 11:40 | disposition home or self-care (01) | DRG 388 ==
LOC: ER 12:14 → MEDS 15:05 → SURS 15:05 → MEDS 18:08
PROVIDERS: Emergency Medicine; ADMIT Internal Medicine
DX: K56.50 Intestinal adhesions [bands], unspecified as to partial versus complete obstruction (principal); G82.50 Quadriplegia, unspecified; L89.224 Pressure ulcer of left hip, stage 4; E87.1 Hypo-osmolality and hyponatremia; E11.9 Type 2 diabetes mellitus without complications; E78.5 Hyperlipidemia, unspecified; K21.9 Gastro-esophageal reflux disease without esophagitis; Z93.3 Colostomy status; Z79.84 Long term (current) use of oral hypoglycemic drugs; Z79.899 Other long term (current) drug therapy; Z98.1 Arthrodesis status
CPT/HCPCS: 36415; 74177; 80048; 80053; 82947; 85025; 85027; 94762; 96361; 96374-59; 99285-25; A9270; J2405; J3010; J7030; Q9967

== ENCOUNTER 2024-05-23 14:54 | Inpatient (IN) | payer MEDICARE, OTHER ==
[~2024-05-23] VITALS: Ht 172.7 cm; Wt 82.9 kg
[~2024-05-23 14:54] MED LIST changes: +LINZESS145 MCG PO
[2024-05-23] MEDS ORDERED: NS 1,000 ML IV ONE (15:35)
[2024-05-23] MEDS ORDERED: NS 1,000 ML IV SCH ×3 (15:45→23:20)
[2024-05-23 15:47] LABS: BASOPHILS ABSOLUTE AUTO 0.02 K/mm3 (0.00-0.23); BASOPHILS PERCENT AUTO 0 % (0-2); EOSINOPHILS ABSOLUTE AUTO 0.02 K/mm3 (0.00-0.68); EOSINOPHILS PERCENT AUTO 0 % (0-6); Hematocrit 38.6 % (37.0-53.0); Hemoglobin 12.8 g/dL (13.5-17.5); IMMATURE GRAN ABSOLUTE AUTO 0.07 K/mm3 (0.00-0.10); IMMATURE GRAN PERCENT AUTO 1 % (0-1); LYMPHOCYTES ABSOLUTE AUTO 0.94 K/mm3 (0.84-5.20); LYMPHOCYTES PERCENT AUTO 7 % (21-46); MONOCYTES ABSOLUTE AUTO 1.43 K/mm3 (0.16-1.47); MONOCYTES PERCENT AUTO 10 % (4-13); Mean Corpuscular HGB 26.5 pg (26.0-34.0); Mean Corpuscular HGB Conc 33.2 g/dL (31.5-36.5); Mean Corpuscular Volume 80 fL (80-100); Mean Platelet Volume 8.8 fL (9.1-12.4); NEUTROPHILS ABSOLUTE AUTO 11.27 K/mm3 (1.96-9.15); NEUTROPHILS PERCENT AUTO 82 % (41-73); Platelet Count 255 K/mm3 (150-400); RDW Coefficient Variation 14.5 % (11.7-14.2); RDW Standard Deviation 42.1 fL (35.1-46.3); Red Blood Cell Count 4.83 M/mm3 (4.30-5.90); White Blood Cell Count 13.75 K/mm3 (4.00-11.30)
[2024-05-23] MEDS ORDERED: Midodrine 5 MG Tab PO ONE (16:05)
[2024-05-23] MEDS ORDERED: CefTRIAXone Sodium 1,000 MG in NS 100 ML IV ONE (16:10)
[2024-05-23] MEDS ORDERED: MetroNIDAZOLE 500MG/NS 100 ml 100 ML IV ONE (16:10)
[2024-05-23 16:12] LABS: Albumin, Blood 3.5 g/dL (3.4-5.0); Albumin/Globulin Ratio 0.8 (0.8-1.8); Bilirubin, Total 0.7 mg/dL (0.1-1.0); Bun/Creatinine Ratio 12.9 (12.0-20.0); Calcium, Blood 10.2 mg/dL (8.5-10.1); Creatinine, Blood 0.93 mg/dL (0.60-1.20); Globulin, Blood 4.6 g/dL (2.2-4.0); Potassium, Blood 4.2 mmol/L (3.5-5.5); Total Protein, Blood 8.1 g/dL (6.4-8.2)
[2024-05-23 16:37] LABS: Source, Urine Suprapubic Cath
[2024-05-23 16:40] LABS: Appearance, Urine Cloudy (Clear); Bilirubin, Urine Neg (Neg); Blood, Urine 5+ (Neg); Color, Urine Yellow (P-Yellow); Glucose Qualitative, Urine Neg (Neg); Ketones, Urine Neg (Neg); Leukocyte Esterase, Urine 3+ (Neg); Nitrite, Urine Pos (Neg); Protein, Urine 3+ (Neg); Urobilinogen, Urine NORM (Normal)
[2024-05-23 17:00] LABS: Bacteria Many /hpf; Squamous Epithelial Cells Rare /hpf (Few); White Blood Cells, Urine TNTC /hpf (0-5)
[2024-05-23 17:01] LABS: Granular Casts 0-2 /lpf (0); Mucus Light (0-Heavy)
[2024-05-23] MEDS ORDERED: Lactated Ringer's 1,000 ML IV SCH (21:25)
[2024-05-23] MEDS ORDERED: FentaNYL Citrate 50 MCG/ML 2 ML Injection IV PRN ×2 (21:25→23:10)
[2024-05-23] MEDS ORDERED: Lactated Ringer's 1,000 ML IV ONE (21:53)
[2024-05-23] MEDS ORDERED: FentaNYL Citrate 50 MCG/ML 2 ML Injection IV ONE (22:00)
[2024-05-23] MEDS ORDERED: Cefepime HCl 2,000 MG in NS 100 ML IV ONE (22:45)
[2024-05-23] MEDS ORDERED: Acetaminophen 325 MG TABLET PO PRN (23:05)
[2024-05-23] MEDS ORDERED: Naloxone HCl 0.4MG / ML 1ML Vial IV PRN (23:10)
[2024-05-23] MEDS ORDERED: FLU VACC TS2024-25(6MOS UP)/PF 45 MCG/0.5 ML SYRINGE IM SCH (23:10)
[2024-05-23] MEDS ORDERED: Ondansetron HCl 2 MG / ML 2ML Vial IV PRN (23:10)
[2024-05-24] VITALS (23 sets, daily range): BP systolic 62–178; BP diastolic 47–112
[2024-05-24] MEDS ORDERED: NS 1,000 ML IV ONE (00:25)
[2024-05-24] MEDS ORDERED: Midodrine 5 MG Tab PO SCH ×2 (02:40→09:00)
[2024-05-24] MEDS ORDERED: TiZANidine HCl 4 MG Tab PO PRN (02:40)
[2024-05-24] MEDS ORDERED: Docusate Sodium 250 MG Cap PO SCH (03:00)
[2024-05-24] MEDS ORDERED: Vancomycin HCL 2,000 MG in NS 500 ML IV ONE (03:20)
--- NOTE | 2024-05-24 03:59 | NUR ---
LATE NOTE. PT ARRIVED ON UNIT @ 0155. AOX4, PLEASANT ALTHOUGH SOMEWHAT IRRITABLE, COOPERATIVE, ABLE TO MAKE NEEDS KNOWN. QUADRIPLEGIC. OSTOMY IN PLACE, MINIMAL OUTPUT THUS FAR. SUPRAPUBIC CATHETER IN PLACE, PER ED NURSE AWARE. SUPRAPUBIC CATHETER CHANGED ON TUESDAY, MD AWARE AND DID NOT FEEL IT NECESSARY TO CHANGE SUPRAPUBIC CATHETER ON ADMISSION. WOUND VAC IN PLACE FOR STAGE 4 PRESSURE ULCER ON BUTTOCKS. PER H&P MD AWARE OF ULCER. PT BROUGHT HIS OWN AIR MATTRESS THAT HE REQUESTED WE PUT IN PLACE ON TOP OF HOSPITAL BED FOR HIS COMFORT. PER PT, AIR BED SHOULD AUTO FLUCTUATE WITH AIR LEVELS AND PREVENT DEVELOPMENT OF FURTHER PRESSURE SORES. BP HAS BEEN EXTREMELY LABILE SINCE ARRIVAL ON UNIT. AT TIMES VERY LOW, THEN BACK WITHIN ACCEPTABLE RANGE, THEN BECOMES VERY LOW AGAIN. SPOKE WITH DR. CRUM TO MAKE HIM AWARE, AFTER REVIEWING CHART APPEARS PT HAS BEEN DEMONSTRATING THIS PATTERN SINCE ARRIVAL IN ED. DR. CRUM ORDERED MIDODRINE TID AND FOR THE HANGING NS TO BE RUN AT BOLUS RATE FOR 500 MLS. ORDERS ENTERED AND ADMINISTERED APPROPRIATELY. ADMISSION ASSESSMENT COMPLETED PER PROTOCOL. PT MAINTAINING ADEQUATE SATURATION ON ROOM AIR. HAS BEEN RUNNING SINUS TACH SINCE ARRIVAL. TOLERATES PO MEDICATION AND FLUID INTAKE WELL. BED LOCKED IN LOWEST POSITION. PT UNABLE TO USE CALL LIGHT BUT IS ABLE TO CALL OUT FOR HELP WHEN NEEDED. ABLE TO MAKE NEEDS KNOWN. CONTINUING TO MONITOR.
[2024-05-24 05:17] LABS: BASOPHILS ABSOLUTE AUTO 0.04 K/mm3 (0.00-0.23); BASOPHILS PERCENT AUTO 0 % (0-2); EOSINOPHILS PERCENT AUTO 0 % (0-6); Hematocrit 30.6 % (37.0-53.0); Hemoglobin 10.4 g/dL (13.5-17.5); IMMATURE GRAN ABSOLUTE AUTO 0.89 K/mm3 (0.00-0.10); IMMATURE GRAN PERCENT AUTO 4 % (0-1); LYMPHOCYTES ABSOLUTE AUTO 0.45 K/mm3 (0.84-5.20); LYMPHOCYTES PERCENT AUTO 2 % (21-46); MONOCYTES ABSOLUTE AUTO 1.67 K/mm3 (0.16-1.47); MONOCYTES PERCENT AUTO 8 % (4-13); Mean Corpuscular Volume 80 fL (80-100); Mean Platelet Volume 9.2 fL (9.1-12.4); NEUTROPHILS ABSOLUTE AUTO 17.87 K/mm3 (1.96-9.15); NEUTROPHILS PERCENT AUTO 85 % (41-73); Platelet Count 215 K/mm3 (150-400); RDW Coefficient Variation 14.7 % (11.7-14.2); RDW Standard Deviation 42.6 fL (35.1-46.3); Red Blood Cell Count 3.85 M/mm3 (4.30-5.90); White Blood Cell Count 20.92 K/mm3 (4.00-11.30)
[2024-05-24] MEDS ORDERED: NS 500 ML IV SCH ×2 (05:35→07:10)
[2024-05-24] MEDS ORDERED: NS 500 ML IV ONE ×2 (05:35→08:55)
[2024-05-24 06:35] LABS: Albumin, Blood 2.7 g/dL (3.4-5.0); Albumin/Globulin Ratio 0.7 (0.8-1.8); Bilirubin, Total 0.8 mg/dL (0.1-1.0); Bun/Creatinine Ratio 12.1 (12.0-20.0); Calcium, Blood 9.1 mg/dL (8.5-10.1); Creatinine, Blood 0.99 mg/dL (0.60-1.20); Magnesium, Blood 1.1 mg/dL (1.6-2.4); Potassium, Blood 3.9 mmol/L (3.5-5.5); Total Protein, Blood 6.7 g/dL (6.4-8.2)
[2024-05-24] MEDS ORDERED: Magnesium Sulf 2 GM/Water 50ML 50 ML IV ONE ×2 (06:40→08:40)
--- NOTE | 2024-05-24 06:48 | NUR ---
shift summary. pt condition has overall changed very little since admission note. see related note for details. bp has continued to fluctuate, trending low. spoke with dr. overton multiple times. most recently @ 0640. plan to monitor for now, increasing tid midodrine to 10mg starting at 0900. no pain reported throughout shift. pt wound vac shows message for obstruction, not relieved with any fix method. pt father going home to grab replacement vac container. mag came back critically low, spoke with dr. overton who ordered 2 gram mag sulfate. pt resting comfortably in bed. bed locked in lowest position. soft touch call light within reach. continuing to monitor.
[2024-05-24] MEDS ORDERED: Baclofen 10 MG Tab PO SCH (09:00)
[2024-05-24] MEDS ORDERED: Docusate Sodium 100 MG Cap PO SCH (09:00)
[2024-05-24] MEDS ORDERED: Fenofibrate, Micronized 134 MG Capsule PO SCH (09:00)
[2024-05-24] MEDS ORDERED: Atorvastatin 10 MG Tab PO SCH (09:00)
[2024-05-24] MEDS ORDERED: Cefepime HCl 2,000 MG in NS 100 ML IV SCH (09:00)
[2024-05-24] MEDS ORDERED: Enoxaparin 40 MG/0.4 ML SYR SC SCH (09:00)
[2024-05-24] MEDS ORDERED: Misc. Capsule PO SCH (09:00)
[2024-05-24] MEDS ORDERED: Lactobacil 2-S.Thermo-Bifido 1 1 Cap PO SCH ×2 (09:00)
[2024-05-24] MEDS ORDERED: Famotidine 20 MG Tab PO SCH (09:00)
[2024-05-24] MEDS ORDERED: Vancomycin HCL 1,250 MG in NS 250 ML IV SCH (16:00)
--- NOTE | 2024-05-24 18:34 | NUR ---
SHIFT SUMMARY PT A/OX4 AND COOPERATIVE OF MOST CARE. PT ABLE TO EXPRESS NEEDS VIA SOFT TOUCH CALL LIGHT AND CALLED APPROPIATE. PT BP'S LABILE, TREATED PER EMAR. PT HAD MILD FEVER THROUGHOUT SHIFT, SEE VITALS. NO REPORT OF CHEST PAIN/PRESSURE THROUGHOUT SHIFT SUPRAPUBIC CATH PATENT, ORANGE COLORED URINE. PT AHS POSITIVE BLOOD CULTURE, SEE CHART. MD AWARE AND PT RECIEVING ABX. OSTOMY IN PLACE LEFT QUAD.
[2024-05-24] MEDS ORDERED: Insulin Regular 100 UNIT/ML 10ML Vial SC SCH (21:00)
[2024-05-24] MEDS ORDERED: Insulin Human Lispro 100 Units/ML 3ML Syringe SC SCH (21:00)
[2024-05-25] VITALS (18 sets, daily range): BP systolic 74–125; BP diastolic 49–85
--- NOTE | 2024-05-25 00:51 | NUR ---
THIS MORNING, PT WAS DESATURATING INTO LOW 80s ON ROOM AIR. UPON ENTERING ROOM, O2 WAS PLACED. PT WAS FOUND TO BE UNRESPONSIVE TO PHYSICAL AND AUDIBLE STIMULI. VITALS WERE WNL, BP REMAINING SOFT BUT IN LINE WITH PREVIOUS RECENT MEASUREMENTS. PERRLA. CBG WAS ~118. LEFT ROOM TO SPEAK WITH DR. CRUM DURING WHICH TIME OTHER NURSES WERE LEFT TO ATTEND TO PT. IT WAS AT THAT TIME PT BECAME SPONTANEOUSLY ALERT. WAS AOX4 AND ABLE TO SPEAK CLEARLY FOLLOW SIMPLE COMMANDS ON WAKING. DR. CRUM CAME TO ASSESS PT AT BEDSIDE TO SPEAK WITH PT. NO ORDERS UPON LEAVING. SOME TIME LATER, PT CALLED THIS RN IN TO REPORT THAT HE FELT LIKE HE WAS "HALF WAY PASSING OUT" BUT NOT COMPLETELY. REPORTS THAT IT WAS BECOMING MORE FREQUENT AND SEVERE. PT ALSO REPORTED THAT HE FELT VERY TIRED SO IT WAS POSSIBLE HE WAS FIGHTING SLEEP BUT THAT HE WAS "FREAKED OUT" A BIT ABOUT GOING BACK TO SLEEP D/T THE PREVIOUS EPISODE. PT WAS AGREEABLE TO TURNING OFF LIGHTS AND TRYING TO GET SOME SLEEP. SPOKE AGAIN WITH DR. CRUM TO REPORT PRECEDING CONVERSATION. DR. CRUM ADVISED THAT FOR TIME BEING WE CAN ALLOW HIM TO SLEEP BUT IF THINGS CHANGE WE MAY START STEROID WHICH MIGHT HELP ALLEVIATE REPORTED SYMPTOMS. PT NOW SLEEPING. HAVE NOT ATTEMPTED TO WAKE. VITALS REMAIN WNL. CONTINUING TO MONITOR.
--- NOTE | 2024-05-25 03:38 | NUR ---
SPOKE WITH DR. ROTH. PT BP HAS BEEN CONSISTENTLY LOW THROUGHOUT SHIFT, SOME FLUCTUATION BUT SBP HAS RAN IN THE 70s-90s RANGE. EXPLAINED PREVIOUS INCIDENT THIS MORNING THAT INVOLVED DR. CRUM COMING TO BEDSIDE. SEE RELATED NOTE FOR DETAILS. OTHERWISE PT HAS BEEN MOSTLY ASYMPTOMATIC. MAP AT THIS TIME IS 61 ALTHOUGH IT HAS BEEN UP AND DOWN THROUGHOUT SHIFT. AFTER DISCUSSING CONCERN, DR. ROTH DIRECTED THAT IT IS OKAY TO CONTINUE TO MONITOR AT THIS TIME.
[2024-05-25 04:23] LABS: BASOPHILS ABSOLUTE AUTO 0.02 K/mm3 (0.00-0.23); BASOPHILS PERCENT AUTO 0 % (0-2); EOSINOPHILS ABSOLUTE AUTO 0.01 K/mm3 (0.00-0.68); EOSINOPHILS PERCENT AUTO 0 % (0-6); Hematocrit 25.9 % (37.0-53.0); Hemoglobin 8.7 g/dL (13.5-17.5); IMMATURE GRAN ABSOLUTE AUTO 0.18 K/mm3 (0.00-0.10); IMMATURE GRAN PERCENT AUTO 1 % (0-1); LYMPHOCYTES ABSOLUTE AUTO 0.97 K/mm3 (0.84-5.20); LYMPHOCYTES PERCENT AUTO 8 % (21-46); MONOCYTES ABSOLUTE AUTO 1.25 K/mm3 (0.16-1.47); MONOCYTES PERCENT AUTO 10 % (4-13); Mean Corpuscular HGB 26.9 pg (26.0-34.0); Mean Corpuscular HGB Conc 33.6 g/dL (31.5-36.5); Mean Corpuscular Volume 80 fL (80-100); Mean Platelet Volume 9.1 fL (9.1-12.4); NEUTROPHILS ABSOLUTE AUTO 10.56 K/mm3 (1.96-9.15); NEUTROPHILS PERCENT AUTO 81 % (41-73); Platelet Count 194 K/mm3 (150-400); Red Blood Cell Count 3.24 M/mm3 (4.30-5.90); White Blood Cell Count 12.99 K/mm3 (4.00-11.30)
[2024-05-25 04:40] LABS: Bun/Creatinine Ratio 15.5 (12.0-20.0); Calcium, Blood 8.6 mg/dL (8.5-10.1); Creatinine, Blood 0.77 mg/dL (0.60-1.20); Potassium, Blood 3.4 mmol/L (3.5-5.5)
--- NOTE | 2024-05-25 04:50 | NUR ---
SHIFT SUMMARY. PT HAS BEEN ABLE TO REST COMFORTABLY THROUGHOUT MOST OF SHIFT WITH NO ACUTE PAIN REPORTED AT ANY POINT. SINCE PREVIOUS NOTE, PT HAS REPORTED FEELING COMFORTABLE AND MOST RECENTLY FEELS LIKE HE IS "ON THE UP AND UP". SEE PREVIOUS NOTES FOR FURTHER DETAILS. BP CONTINUES TO BE SOFT BUT MAP IS MOST RECENTLY 70 WITH SBP OF 100. REQUIRED 2-3 L O2 VIA NC WHILE SLEEPING TO MAINTAIN ADEQUATE SATURATION BUT IS ABLE TO MAINTAIN ON ROOM AIR WHILE AWAKE. UPON ASKING PT ABOUT THIS HE REPORTED THAT HE HAS SLEEP APNEA THAT HE "DOES NOT DO ANYTHING ABOUT". WOUND VAC REMAINS IN PLACE AND HAS BEEN RUNNING WELL WITH NO ISSUES. CATHETER REMAINS IN PLACE AND IS DRAINING TO GRAVITY. PT IS PARTICULAR WITH REPOSITIONING, HAVE REPOSITIONED FEW TIMES BUT PT OFTEN REFUSES CITING THE ABILITY OF HIS PERSONAL AIR MATTRESS TO FLUCTUATE IN PRESSURE TO PREVENT SKIN BREAK DOWN. PT IS FEELING GOOD AT THIS TIME. CONTINUES TO RUN SINUS ON TELE. BED LOCKED IN LOWEST POSITION. SOFT TOUCH CALL LIGHT REMAINS IN PLACE. CONTINUING TO MONITOR.
[2024-05-25] MEDS ORDERED: Potassium Chloride 20 MEQ/15 ML UDC PO ONE ×2 (08:03→11:20)
[2024-05-25] MEDS ORDERED: MetFORMIN HCl 500 mg PO SCH (09:00)
[2024-05-25] MEDS ORDERED: Misc. Capsule PO SCH (09:00)
[2024-05-25] MEDS ORDERED: NS 250 ML IV PRN (09:30)
[2024-05-25] MEDS ORDERED: TiZANidine HCl 4 MG Tab PO SCH (16:00)
--- NOTE | 2024-05-25 17:40 | NUR ---
SHIFT SUMMARY PT A/OX AND COOPERATIVE OF CARE. PT ABLE TO EXPRESS NEEDS VIA SOFT TOUCH CALL LIGHT. PT BP'S LABILE BUT STABLE. PT WITH MILD FEVER TOWARDS END OF SHIFT. OTHER VSS THROUGHOUT SHIFT. NO REPORT OF CHEST PAIN/PRESSURE THROUGHOUT SHIIFT. NO REPORT OF SOB/DYSPNEA THROUGHOUT SHIFT. CATHETER PATENT AND CONTINUES TO DRAIN ORANGE URINE. OSTOMY PATENT. PT REPORTED "PRESSURE" TO HIS "KIDNEYS" DURING SHIFT.
[2024-05-25] MEDS ORDERED: TiZANidine HCl 4 MG Tab PO PRN (22:05)
[2024-05-26] VITALS (8 sets, daily range): BP systolic 80–205; BP diastolic 62–146
[2024-05-26] MEDS ORDERED: Vancomycin HCL 1,250 MG in NS 250 ML IV SCH (04:00)
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
[2024-05-26 05:47] LABS: BASOPHILS ABSOLUTE AUTO 0.03 K/mm3 (0.00-0.23); BASOPHILS PERCENT AUTO 0 % (0-2); EOSINOPHILS ABSOLUTE AUTO 0.03 K/mm3 (0.00-0.68); EOSINOPHILS PERCENT AUTO 0 % (0-6); Hematocrit 26.5 % (37.0-53.0); Hemoglobin 8.9 g/dL (13.5-17.5); IMMATURE GRAN ABSOLUTE AUTO 0.05 K/mm3 (0.00-0.10); IMMATURE GRAN PERCENT AUTO 1 % (0-1); LYMPHOCYTES ABSOLUTE AUTO 1.32 K/mm3 (0.84-5.20); LYMPHOCYTES PERCENT AUTO 16 % (21-46); MONOCYTES ABSOLUTE AUTO 0.78 K/mm3 (0.16-1.47); MONOCYTES PERCENT AUTO 9 % (4-13); Mean Corpuscular HGB 26.7 pg (26.0-34.0); Mean Corpuscular HGB Conc 33.6 g/dL (31.5-36.5); Mean Corpuscular Volume 80 fL (80-100); Mean Platelet Volume 9.3 fL (9.1-12.4); NEUTROPHILS ABSOLUTE AUTO 6.07 K/mm3 (1.96-9.15); NEUTROPHILS PERCENT AUTO 73 % (41-73); Platelet Count 224 K/mm3 (150-400); RDW Standard Deviation 43.5 fL (35.1-46.3); Red Blood Cell Count 3.33 M/mm3 (4.30-5.90); White Blood Cell Count 8.28 K/mm3 (4.00-11.30)
[2024-05-26 06:46] LABS: Albumin, Blood 2.4 g/dL (3.4-5.0); Albumin/Globulin Ratio 0.6 (0.8-1.8); Bilirubin, Total 0.6 mg/dL (0.1-1.0); Bun/Creatinine Ratio 17.2 (12.0-20.0); Calcium, Blood 8.9 mg/dL (8.5-10.1); Creatinine, Blood 0.7 mg/dL (0.60-1.20); Globulin, Blood 3.7 g/dL (2.2-4.0); Potassium, Blood 3.5 mmol/L (3.5-5.5); Total Protein, Blood 6.1 g/dL (6.4-8.2)
[2024-05-26 06:49] LABS: Magnesium, Blood 1.1 mg/dL (1.6-2.4)
[2024-05-26] MEDS ORDERED: Magnesium Sulf 2 GM/Water 50ML 50 ML IV ONE (08:15)
--- NOTE | 2024-05-26 11:57 | NUR ---
TRANSFER UPDATE REPORT GIVEN TO MED FLOOR RN AT 1115. 'PT TRANSFERED TO [facility] FLOOR AT 1125 VIA HOSPITAL BED AND ON RA. PT PERSONAL BELONGINGS TRANSFERED WITH PT AND ALONG WITH MEDICATIONS IN GREEN MEDICATION BAG. THIS RN ATTEMPTED TO CONTACT FATHER, TONNY, ABOUT TRANSFER, NO ANSWER.
--- NOTE | 2024-05-26 12:16 | NUR ---
pt arrived to 325 via bed, he is a/ox4, able to make his needs known, on r/a, has supra pubic cath, and ostomy, sacral wound with wound vac, power glide to christina site is clear and patent, he is a feeder, soft touch call light in reach.
--- NOTE | 2024-05-26 16:28 | NUR ---
WOUND VAC CHANGED OUT PER PT REQUEST. PT TOLERATED WELL. WOUND WAS CLEANED WOUND VAC REAPPLIED. NO SIGNS OF INFECTION NOTED. SEALED WELL. REPOSTIONED PT AND WOUND VAC RUNNING WELL.
--- NOTE | 2024-05-26 18:02 | NUR ---
pt had wound vac changed today, took po meds without diff, makes his needs known, no acute changes this shift, call light in reach.
[2024-05-27 03:20] VITALS: BP 128/94
--- NOTE | 2024-05-27 06:09 | NUR ---
NO ACUTE CHANGES OVERNIGHT. VSS, CALLS APPROPRIATELY. REPOSITIONED. COLOSTOMY, SUPRAPUBIC CATH, WOUND VAC ALL FUNCTIONING PROPERLY.
[2024-05-27 07:58] VITALS: BP 112/80
[2024-05-27 09:08] LABS: Hematocrit 30.9 % (37.0-53.0); Hemoglobin 10.2 g/dL (13.5-17.5); Mean Corpuscular HGB 26.8 pg (26.0-34.0); Mean Corpuscular Volume 81 fL (80-100); Mean Platelet Volume 8.9 fL (9.1-12.4); Platelet Count 240 K/mm3 (150-400); RDW Coefficient Variation 14.9 % (11.7-14.2); RDW Standard Deviation 44.1 fL (35.1-46.3); Red Blood Cell Count 3.81 M/mm3 (4.30-5.90); White Blood Cell Count 4.96 K/mm3 (4.00-11.30)
--- NOTE | 2024-05-27 09:23 | NUR ---
pt laying in bed watching tv and show on his computer, a/ox4, pleasant and cooperative with care, follows commands well, wanted muscle relaxant early this am, this was given, lungs are clear in upper davis, dim in bases, resp, even and unlabored, no cough noted, hrr, no edema noted, ppp+2, cap refill <3sec, vs stable, afebrile, piv to lfa, and power glide to christina, sites are clear and patent, btx3, ostomy in place, putting out gas, no stool as of yet, has supra pubic cath draing slightly cloudy yellow urine, skin has small wound to bottom with wound vac in place, was changed yesterday, able to turn head only, is a feeder, swallows po meds without diff, alexis, call light in reach.
[2024-05-27 09:26] LABS: Magnesium, Blood 1.2 mg/dL (1.6-2.4)
[2024-05-27 09:27] LABS: Creatinine, Blood 0.57 mg/dL (0.60-1.20); Potassium, Blood 3.3 mmol/L (3.5-5.5)
[2024-05-27] MEDS ORDERED: Magnesium Sulf 2 GM/Water 50ML 50 ML IV SCH (11:30)
[2024-05-27 13:48] LABS: Acinetobacter baumannii DNA Not Detected copy/mL (NOT DETECT); Enterobacter cloacae DNA Not Detected copy/mL (NOT DETECT); Escherichia coli DNA Not Detected copy/mL (NOT DETECT); Haemophilus influenzae DNA Not Detected copy/mL (NOT DETECT); Klebsiella aerogenes DNA Not Detected copy/mL (NOT DETECT); Klebsiella oxytoca DNA Not Detected copy/mL (NOT DETECT); Klebsiella pneumoniae DNA Not Detected copy/mL (NOT DETECT); Moraxella catarrhalis DNA Not Detected copy/mL (NOT DETECT); Proteus sp DNA Not Detected copy/mL (NOT DETECT); Pseudomonas aeruginosa DNA Not Detected copy/mL (NOT DETECT); Serratia marcescens DNA Not Detected copy/mL (NOT DETECT); Staphylococcus aureus DNA Not Detected copy/mL (NOT DETECT); Streptococcus agalactiae DNA Not Detected copy/mL (NOT DETECT); Streptococcus pneumoniae DNA Not Detected copy/mL (NOT DETECT)
[2024-05-27 13:49] LABS: Adenovirus DNA Not Detected (NOT DETECT); Chlamydia pneumonia Not Detected (NOT DETECT); Human Coronavirus RNA Not Detected (NOT DETECT); Human Metapneumovirus RNA Not Detected (NOT DETECT); Influenza virus A RNA Not Detected (NOT DETECT); Influenza virus B RNA Not Detected (NOT DETECT); Legionella pneumophila Not Detected (NOT DETECT); Mycoplasma pneumoniae Not Detected (NOT DETECT); Parainfluenza virus RNA Not Detected (NOT DETECT); Respiratory syncytial Vir RNA Not Detected (NOT DETECT); Rhinovirus+Enterovirus RNA Not Detected (NOT DETECT); Streptococcus pyogenes DNA Not Detected copy/mL (NOT DETECT)
[2024-05-27 15:51] VITALS: BP 125/81
--- NOTE | 2024-05-27 18:03 | NUR ---
pt had an uneventful day, has been pleasant and cooperative and appreciative of care, no acute changes this shift. call light in reach.
[2024-05-27 20:10] VITALS: BP 135/107
[2024-05-28 02:52] VITALS: BP 102/78
--- NOTE | 2024-05-28 05:56 | NUR ---
NO ACUTE CHANGES OVERNIGHT. VSS. COLOSTOMY CHANGED 05/27, NO OUTPUT SINCE CHANGE. WOUND VAC IN PLACE.
[2024-05-28 07:25] LABS: Hematocrit 30.5 % (37.0-53.0); Hemoglobin 9.9 g/dL (13.5-17.5); Mean Corpuscular HGB 26.2 pg (26.0-34.0); Mean Corpuscular HGB Conc 32.5 g/dL (31.5-36.5); Mean Corpuscular Volume 81 fL (80-100); Mean Platelet Volume 9.2 fL (9.1-12.4); Platelet Count 245 K/mm3 (150-400); RDW Coefficient Variation 14.9 % (11.7-14.2); RDW Standard Deviation 44.1 fL (35.1-46.3); Red Blood Cell Count 3.78 M/mm3 (4.30-5.90); White Blood Cell Count 3.73 K/mm3 (4.00-11.30)
[2024-05-28 07:46] VITALS: BP 118/90
[2024-05-28 07:47] LABS: Bun/Creatinine Ratio 17.3 (12.0-20.0); Creatinine, Blood 0.58 mg/dL (0.60-1.20); Magnesium, Blood 1.4 mg/dL (1.6-2.4); Potassium, Blood 3.4 mmol/L (3.5-5.5)
[2024-05-28] MEDS ORDERED: Potassium Chloride 20 MEQ TabCR PO ONE (10:00)
[2024-05-28] MEDS ORDERED: Polyethylene Glycol 3350 17 gm PO STA (12:18)
[2024-05-28] MEDS ORDERED: Acetaminophen325 M1 PO (16:59)
[2024-05-28] MEDS ORDERED: VISBIOME 112.51 EACH PO (17:01)
[2024-05-28] MEDS ORDERED: HUMALOG KW100 UNIT/1 SC (17:01)
[2024-05-28] MEDS ORDERED: LEVO750 PO (17:02)
--- NOTE | 2024-05-28 19:37 | NUR ---
SHIFT SUMMARY PT A&OX4. CALLS APPROPRIATELY AND MAKES NEEDS KNOWN TO STAFF. DENIES ANY CP OR SOB. ASSISTED WITH MEALS AND TOOK MEDS WITHOUT ANY COMPLICATIONS. NO SIGNIFICANT EVENTS HAPPENED DURING SHIFT. STITCHS TO R ARM WERE REMOVED. PT DC'D TO HOME AT 1500 TODAY. PT HAD NO SIGNIFICANT EVENTS PRIOR TO DC.
== END 2024-05-28 15:04 | disposition home or self-care (01) | DRG 871 ==
LOC: ER 14:54 → ERHOLD 23:03 → PCU 23:03 → MEDS 05-26 11:20
PROVIDERS: Family Medicine; Student in an Organized Health Care Education/Training Program; ADMIT Student in an Organized Health Care Education/Training Program
DX: A41.9 Sepsis, unspecified organism (principal); G82.50 Quadriplegia, unspecified; L89.154 Pressure ulcer of sacral region, stage 4; J18.9 Pneumonia, unspecified organism; N13.6 Pyonephrosis; E87.1 Hypo-osmolality and hyponatremia; R65.20 Severe sepsis without septic shock; E11.9 Type 2 diabetes mellitus without complications; I10 Essential (primary) hypertension; E83.42 Hypomagnesemia; Z93.3 Colostomy status; K21.9 Gastro-esophageal reflux disease without esophagitis; E78.5 Hyperlipidemia, unspecified; Z98.1 Arthrodesis status; Z79.899 Other long term (current) drug therapy; Z79.84 Long term (current) use of oral hypoglycemic drugs; Z87.442 Personal history of urinary calculi; Z86.14 Personal history of Methicillin resistant Staphylococcus aureus infection; B96.5 Pseudomonas (aeruginosa) (mallei) (pseudomallei) as the cause of diseases classified elsewhere
CPT/HCPCS: 36415; 71045; 74177; 80048; 80053; 80202; 81001; 82947; 83605; 83735; 85025; 85027; 87040; 87077; 87086; 87633; 93005; 93010; 94762; 96361; 96365-59; 96366; 96367; 96375; 99285-25; A9270; C1751; J0692; J0696; J1650; J3010; J3370; J3475; J7030; J7040; J7050; J7120; Q9967

== ENCOUNTER 2024-06-01 02:18 | Day surgery (SDC) | payer MEDICARE, OTHER ==
[~2024-06-01 02:18] MED LIST changes: +Acetaminophen325 M1 PO; +HUMALOG KW100 UNIT/1 SC; +LEVO750 PO; +VISBIOME 112.51 EACH PO
== END 2024-06-01 22:56 | disposition home or self-care (01) ==
LOC: WOUND 02:18
DX: L89.324 Pressure ulcer of left buttock, stage 4 (principal); R53.2 Functional quadriplegia; I10 Essential (primary) hypertension; E11.9 Type 2 diabetes mellitus without complications

== ENCOUNTER 2024-06-08 03:15 | Day surgery (SDC) | payer MEDICARE, OTHER | END 2024-06-08 23:31 | disposition home or self-care (01) | LOC: WOUND 03:15 | DX: L89.324 Pressure ulcer of left buttock, stage 4 (principal); E11.9 Type 2 diabetes mellitus without complications ==

== ENCOUNTER 2024-06-15 03:42 | Day surgery (SDC) | payer MEDICARE, OTHER | END 2024-06-15 23:48 | disposition home or self-care (01) | LOC: WOUND 03:42 | DX: L89.324 Pressure ulcer of left buttock, stage 4 (principal); E11.69 Type 2 diabetes mellitus with other specified complication; L89.92 Pressure ulcer of unspecified site, stage 2; L89.604 Pressure ulcer of unspecified heel, stage 4; R53.2 Functional quadriplegia ==

== ENCOUNTER 2024-06-22 03:58 | Day surgery (SDC) | payer MEDICARE, OTHER | END 2024-06-23 02:58 | disposition home or self-care (01) | LOC: WOUND 03:58 | DX: L89.324 Pressure ulcer of left buttock, stage 4 (principal); L89.92 Pressure ulcer of unspecified site, stage 2; L89.604 Pressure ulcer of unspecified heel, stage 4; E11.69 Type 2 diabetes mellitus with other specified complication; R53.2 Functional quadriplegia ==

== ENCOUNTER 2024-07-20 05:58 | Day surgery (SDC) | payer MEDICARE, OTHER | END 2024-07-22 04:00 | disposition home or self-care (01) | LOC: WOUND 05:58 | DX: L89.324 Pressure ulcer of left buttock, stage 4 (principal); L89.629 Pressure ulcer of left heel, unspecified stage; L89.159 Pressure ulcer of sacral region, unspecified stage; E11.69 Type 2 diabetes mellitus with other specified complication; R53.2 Functional quadriplegia ==

== ENCOUNTER 2024-07-27 03:34 | Day surgery (SDC) | payer MEDICARE, OTHER | END 2024-07-27 23:00 | disposition home or self-care (01) | LOC: WOUND 03:34 | DX: L89.324 Pressure ulcer of left buttock, stage 4 (principal); L89.92 Pressure ulcer of unspecified site, stage 2; E11.69 Type 2 diabetes mellitus with other specified complication; L89.604 Pressure ulcer of unspecified heel, stage 4 ==

== ENCOUNTER 2024-08-03 01:57 | Day surgery (SDC) | payer MEDICARE, OTHER | END 2024-08-03 23:00 | disposition home or self-care (01) | LOC: WOUND 01:57 | DX: L89.324 Pressure ulcer of left buttock, stage 4 (principal); L89.624 Pressure ulcer of left heel, stage 4; L89.159 Pressure ulcer of sacral region, unspecified stage; E11.69 Type 2 diabetes mellitus with other specified complication; R53.2 Functional quadriplegia ==

== ENCOUNTER 2024-08-15 19:37 | Emergency (ER) | payer MEDICARE, OTHER ==
[~2024-08-15] VITALS: Ht 182.9 cm; Wt 86.2 kg
[2024-08-15 20:13] LABS: BASOPHILS ABSOLUTE AUTO 0.03 K/mm3 (0.00-0.23); BASOPHILS PERCENT AUTO 1 % (0-2); EOSINOPHILS PERCENT AUTO 2 % (0-6); Hematocrit 38.1 % (37.0-53.0); Hemoglobin 12.6 g/dL (13.5-17.5); IMMATURE GRAN ABSOLUTE AUTO 0.01 K/mm3 (0.00-0.10); IMMATURE GRAN PERCENT AUTO 0 % (0-1); LYMPHOCYTES ABSOLUTE AUTO 1.46 K/mm3 (0.84-5.20); LYMPHOCYTES PERCENT AUTO 28 % (21-46); MONOCYTES ABSOLUTE AUTO 0.45 K/mm3 (0.16-1.47); MONOCYTES PERCENT AUTO 9 % (4-13); Mean Corpuscular HGB 26.7 pg (26.0-34.0); Mean Corpuscular HGB Conc 33.1 g/dL (31.5-36.5); Mean Corpuscular Volume 81 fL (80-100); Mean Platelet Volume 9.5 fL (9.1-12.4); NEUTROPHILS ABSOLUTE AUTO 3.23 K/mm3 (1.96-9.15); NEUTROPHILS PERCENT AUTO 61 % (41-73); Platelet Count 213 K/mm3 (150-400); RDW Coefficient Variation 13.7 % (11.7-14.2); Red Blood Cell Count 4.72 M/mm3 (4.30-5.90); White Blood Cell Count 5.28 K/mm3 (4.00-11.30)
[2024-08-15 20:37] LABS: Albumin, Blood 3.6 g/dL (3.4-5.0); Albumin/Globulin Ratio 0.9 (0.8-1.8); Bilirubin, Total 0.3 mg/dL (0.1-1.0); Bun/Creatinine Ratio 14.2 (12.0-20.0); Calcium, Blood 9.9 mg/dL (8.5-10.1); Creatinine, Blood 0.49 mg/dL (0.60-1.20); Globulin, Blood 4.2 g/dL (2.2-4.0); Potassium, Blood 3.8 mmol/L (3.5-5.5); Total Protein, Blood 7.8 g/dL (6.4-8.2)
[2024-08-15 22:01] LABS: Influenza A, PCR NEGATIVE (NEGATIVE); Influenza B, PCR NEGATIVE (NEGATIVE); Resp Syncytial Virus, PCR NEGATIVE (NEGATIVE); SARS-Cov-2 (COVID-19) PCR, MMC NEGATIVE (NEGATIVE)
[2024-08-16] MEDS ORDERED: Ipratropium/Albuterol SulF 2.5-0.5MG/3 ML Amp INH ONE (00:55)
[2024-08-16 01:13] VITALS: BP 139/109
== END 2024-08-16 01:55 | disposition home or self-care (01) ==
LOC: ER 19:37
PROVIDERS: Emergency Medicine; Student in an Organized Health Care Education/Training Program
DX: J40 Bronchitis, not specified as acute or chronic (principal); G82.50 Quadriplegia, unspecified; K21.9 Gastro-esophageal reflux disease without esophagitis; E11.9 Type 2 diabetes mellitus without complications; E78.5 Hyperlipidemia, unspecified; Z87.442 Personal history of urinary calculi; Z79.84 Long term (current) use of oral hypoglycemic drugs; Z79.4 Long term (current) use of insulin; Z79.899 Other long term (current) drug therapy
CPT/HCPCS: 0241U; 71046; 71260; 80053; 83880; 84484; 85025; 85379; 93005; 93010; 94640; 94664; 99285-25; Q9967

== ENCOUNTER 2024-08-17 04:36 | Day surgery (SDC) | payer MEDICARE, OTHER | END 2024-08-17 23:00 | disposition home or self-care (01) | LOC: WOUND 04:36 | DX: L89.324 Pressure ulcer of left buttock, stage 4 (principal); L89.92 Pressure ulcer of unspecified site, stage 2; E11.69 Type 2 diabetes mellitus with other specified complication; R53.2 Functional quadriplegia; L89.604 Pressure ulcer of unspecified heel, stage 4 ==

== ENCOUNTER 2024-08-24 06:16 | Day surgery (SDC) | payer MEDICARE, OTHER | END 2024-08-24 23:00 | disposition home or self-care (01) | LOC: WOUND 06:16 | DX: L89.324 Pressure ulcer of left buttock, stage 4 (principal); R53.2 Functional quadriplegia; E11.9 Type 2 diabetes mellitus without complications ==

== ENCOUNTER 2024-08-31 06:54 | Day surgery (SDC) | payer MEDICARE, OTHER ==
[2024-08-31] MEDS ORDERED: Lidocaine HCl 4% Cream 5 GM ONE (09:57)
== END 2024-08-31 23:00 | disposition home or self-care (01) ==
LOC: WOUND 06:54
DX: L89.324 Pressure ulcer of left buttock, stage 4 (principal); R53.2 Functional quadriplegia; E11.9 Type 2 diabetes mellitus without complications
CPT/HCPCS: A9270

== ENCOUNTER 2024-09-07 03:23 | Day surgery (SDC) | payer MEDICARE, OTHER | END 2024-09-07 23:00 | disposition home or self-care (01) | LOC: WOUND 03:23 | DX: L89.324 Pressure ulcer of left buttock, stage 4 (principal); L89.92 Pressure ulcer of unspecified site, stage 2; E11.69 Type 2 diabetes mellitus with other specified complication; L89.604 Pressure ulcer of unspecified heel, stage 4 ==

== ENCOUNTER 2024-09-14 06:19 | Day surgery (SDC) | payer MEDICARE, OTHER | END 2024-09-14 23:00 | disposition home or self-care (01) | LOC: WOUND 06:19 | DX: L89.324 Pressure ulcer of left buttock, stage 4 (principal); R53.2 Functional quadriplegia; E11.9 Type 2 diabetes mellitus without complications ==

== ENCOUNTER 2024-09-21 04:03 | Day surgery (SDC) | payer MEDICARE, OTHER | END 2024-09-21 23:00 | disposition home or self-care (01) | LOC: WOUND 04:03 | DX: L89.324 Pressure ulcer of left buttock, stage 4 (principal); E11.69 Type 2 diabetes mellitus with other specified complication; R53.2 Functional quadriplegia ==

== ENCOUNTER → 2024-10-02 | Outpatient (CLI) | payer MEDICARE, OTHER | LOC: LAB 09:47 → LAB SHORT 09:47 | DX: R10.9 Unspecified abdominal pain (principal) | CPT/HCPCS: 87077; 87086; 87186 ==

== ENCOUNTER 2024-10-05 03:54 | Day surgery (SDC) | payer MEDICARE, OTHER | END 2024-10-05 23:00 | disposition home or self-care (01) | LOC: WOUND 03:54 | DX: L89.324 Pressure ulcer of left buttock, stage 4 (principal); R53.2 Functional quadriplegia; E11.9 Type 2 diabetes mellitus without complications ==

== ENCOUNTER 2024-10-12 02:07 | Day surgery (SDC) | payer MEDICARE, OTHER | END 2024-10-12 23:00 | disposition home or self-care (01) | LOC: WOUND 02:07 | DX: L89.324 Pressure ulcer of left buttock, stage 4 (principal); E11.69 Type 2 diabetes mellitus with other specified complication; R53.2 Functional quadriplegia ==

== ENCOUNTER → 2024-10-18 | Outpatient (CLI) | payer MEDICARE, OTHER | LOC: LAB SHORT 10:29 → LAB 10:29 | DX: R35.0 Frequency of micturition (principal) | CPT/HCPCS: 87086 ==

== ENCOUNTER 2024-10-19 05:05 | Day surgery (SDC) | payer MEDICARE, OTHER | END 2024-10-19 23:00 | disposition home or self-care (01) | LOC: WOUND 05:05 | DX: L89.324 Pressure ulcer of left buttock, stage 4 (principal); R53.2 Functional quadriplegia; E11.9 Type 2 diabetes mellitus without complications ==

== ENCOUNTER 2024-10-26 04:13 | Day surgery (SDC) | payer MEDICARE, OTHER | END 2024-10-26 23:00 | disposition home or self-care (01) | LOC: WOUND 04:13 | DX: L89.324 Pressure ulcer of left buttock, stage 4 (principal); R53.2 Functional quadriplegia; E11.9 Type 2 diabetes mellitus without complications ==

== ENCOUNTER 2024-11-02 03:22 | Day surgery (SDC) | payer MEDICARE, OTHER | END 2024-11-02 23:00 | disposition home or self-care (01) | LOC: WOUND 03:22 | DX: L89.324 Pressure ulcer of left buttock, stage 4 (principal); E11.69 Type 2 diabetes mellitus with other specified complication; R53.2 Functional quadriplegia ==

== ENCOUNTER 2024-11-09 04:07 | Day surgery (SDC) | payer MEDICARE, OTHER | END 2024-11-09 23:00 | disposition home or self-care (01) | LOC: WOUND 04:07 | DX: L89.324 Pressure ulcer of left buttock, stage 4 (principal); E11.69 Type 2 diabetes mellitus with other specified complication; R53.2 Functional quadriplegia ==

== ENCOUNTER 2024-11-16 00:32 | Day surgery (SDC) | payer MEDICARE, OTHER | END 2024-11-16 23:00 | disposition home or self-care (01) | LOC: WOUND 00:32 | DX: L89.324 Pressure ulcer of left buttock, stage 4 (principal); E11.69 Type 2 diabetes mellitus with other specified complication ==

== ENCOUNTER 2024-11-16 11:14 | Inpatient (IN) | payer MEDICARE, OTHER ==
[2024-11-16] VITALS (13 sets, daily range): BP systolic 79–125; BP diastolic 53–73
[~2024-11-16] VITALS: Ht 182.9 cm; Wt 86.5 kg
[2024-11-16 12:38] LABS: BASOPHILS ABSOLUTE AUTO 0.02 K/mm3 (0.00-0.23); BASOPHILS PERCENT AUTO 0 % (0-2); EOSINOPHILS ABSOLUTE AUTO 0.01 K/mm3 (0.00-0.68); EOSINOPHILS PERCENT AUTO 0 % (0-6); Hematocrit 35.3 % (37.0-53.0); IMMATURE GRAN ABSOLUTE AUTO 0.08 K/mm3 (0.00-0.10); IMMATURE GRAN PERCENT AUTO 1 % (0-1); LYMPHOCYTES ABSOLUTE AUTO 0.55 K/mm3 (0.84-5.20); LYMPHOCYTES PERCENT AUTO 5 % (21-46); MONOCYTES ABSOLUTE AUTO 1.16 K/mm3 (0.16-1.47); MONOCYTES PERCENT AUTO 10 % (4-13); Mean Corpuscular HGB 26.3 pg (26.0-34.0); Mean Corpuscular Volume 77 fL (80-100); Mean Platelet Volume 9.7 fL (9.1-12.4); NEUTROPHILS ABSOLUTE AUTO 9.67 K/mm3 (1.96-9.15); NEUTROPHILS PERCENT AUTO 84 % (41-73); Platelet Count 178 K/mm3 (150-400); RDW Coefficient Variation 14.6 % (11.7-14.2); RDW Standard Deviation 40.4 fL (35.1-46.3); Red Blood Cell Count 4.57 M/mm3 (4.30-5.90); White Blood Cell Count 11.49 K/mm3 (4.00-11.30)
[2024-11-16 13:11] LABS: Albumin, Blood 2.9 g/dL (3.4-5.0); Albumin/Globulin Ratio 0.6 (0.8-1.8); Bilirubin, Total 1.5 mg/dL (0.1-1.0); Bun/Creatinine Ratio 16.3 (12.0-20.0); Calcium, Blood 8.7 mg/dL (8.5-10.1); Creatinine, Blood 0.55 mg/dL (0.60-1.20); Globulin, Blood 4.8 g/dL (2.2-4.0); Potassium, Blood 3.9 mmol/L (3.5-5.5); Total Protein, Blood 7.7 g/dL (6.4-8.2)
[2024-11-16 14:11] LABS: Source, Urine Clean Catch
[2024-11-16 14:28] LABS: Appearance, Urine Hazy (Clear); Bilirubin, Urine Neg (Neg); Blood, Urine 2+ (Neg); Color, Urine Yellow (P-Yellow); Glucose Qualitative, Urine Neg (Neg); Ketones, Urine Neg (Neg); Leukocyte Esterase, Urine 3+ (Neg); Nitrite, Urine Neg (Neg); Protein, Urine 2+ (Neg); Urobilinogen, Urine 2+ (Normal); pH, Urine 6.5 (5.0-8.0)
[2024-11-16 14:41] LABS: White Blood Cells, Urine 50-100 /hpf (0-5)
[2024-11-16 14:42] LABS: Amorphous Light (0-Heavy); Bacteria Many /hpf; Mucus Light (0-Heavy); Squamous Epithelial Cells Rare /hpf (Few)
[2024-11-16] MEDS ORDERED: Ondansetron HCl 2 MG / ML 2ML Vial IV PRN (15:25)
[2024-11-16] MEDS ORDERED: NS 1,000 ML IV SCH (15:25)
[2024-11-16] MEDS ORDERED: Acetaminophen 325 MG TABLET PO PRN (15:25)
[2024-11-16] MEDS ORDERED: Piperacillin/Tazobactam Sod 3.375 GM in NS 100 ML IV SCH (15:34)
[2024-11-16] MEDS ORDERED: NS 500 ML IV SCH (18:00)
[2024-11-16] MEDS ORDERED: TiZANidine HCl 4 MG Tab PO PRN (18:40)
--- NOTE | 2024-11-16 19:17 | NUR ---
Admit noted Received report from DUSTER TENDER, patient to room at 1825, via gurney 4 person transfer with slider sheet. Powerglide placed to MENG. BP soft, trending up wth bolus completed. Other vss. Report given to oncoming rn.
--- NOTE | 2024-11-16 19:21 | NUR ---
Care assumed now for this patient. Report received from Chiara FABIAN. Patient is a new admission. Able to interact with bedside report. Blood pressures are labile. Continue to monitor.
[2024-11-16] MEDS ORDERED: Lactobacil 2-S.Thermo-Bifido 1 1 Cap PO SCH (21:00)
[2024-11-16] MEDS ORDERED: Baclofen 10 MG Tab PO SCH (21:00)
[2024-11-16] MEDS ORDERED: Famotidine 20 MG Tab PO SCH (21:00)
[2024-11-16] MEDS ORDERED: Docusate Sodium 250 MG Cap PO SCH (21:00)
[2024-11-16 21:44] LABS: Bun/Creatinine Ratio 16.9 (12.0-20.0); Calcium, Blood 8.4 mg/dL (8.5-10.1); Creatinine, Blood 0.65 mg/dL (0.60-1.20); Potassium, Blood 3.8 mmol/L (3.5-5.5)
[2024-11-16 23:51] LABS: Bun/Creatinine Ratio 15.7 (12.0-20.0); Calcium, Blood 8.4 mg/dL (8.5-10.1); Creatinine, Blood 0.64 mg/dL (0.60-1.20)
[2024-11-17] VITALS (8 sets, daily range): BP systolic 81–190; BP diastolic 55–110
[2024-11-17 03:40] LABS: BASOPHILS ABSOLUTE AUTO 0.01 K/mm3 (0.00-0.23); BASOPHILS PERCENT AUTO 0 % (0-2); EOSINOPHILS ABSOLUTE AUTO 0.02 K/mm3 (0.00-0.68); EOSINOPHILS PERCENT AUTO 0 % (0-6); Hemoglobin 9.1 g/dL (13.5-17.5); IMMATURE GRAN ABSOLUTE AUTO 0.06 K/mm3 (0.00-0.10); IMMATURE GRAN PERCENT AUTO 1 % (0-1); LYMPHOCYTES ABSOLUTE AUTO 0.35 K/mm3 (0.84-5.20); LYMPHOCYTES PERCENT AUTO 4 % (21-46); MONOCYTES ABSOLUTE AUTO 0.78 K/mm3 (0.16-1.47); MONOCYTES PERCENT AUTO 10 % (4-13); Mean Corpuscular HGB 25.8 pg (26.0-34.0); Mean Corpuscular HGB Conc 33.7 g/dL (31.5-36.5); Mean Corpuscular Volume 77 fL (80-100); Mean Platelet Volume 9.4 fL (9.1-12.4); NEUTROPHILS ABSOLUTE AUTO 6.84 K/mm3 (1.96-9.15); NEUTROPHILS PERCENT AUTO 85 % (41-73); Platelet Count 185 K/mm3 (150-400); RDW Coefficient Variation 14.7 % (11.7-14.2); RDW Standard Deviation 40.6 fL (35.1-46.3); Red Blood Cell Count 3.53 M/mm3 (4.30-5.90); White Blood Cell Count 8.06 K/mm3 (4.00-11.30)
[2024-11-17 04:16] LABS: Bun/Creatinine Ratio 15.9 (12.0-20.0); Calcium, Blood 8.1 mg/dL (8.5-10.1); Creatinine, Blood 0.63 mg/dL (0.60-1.20); Potassium, Blood 4.1 mmol/L (3.5-5.5)
--- NOTE | 2024-11-17 04:51 | NUR ---
Patient was unable to get comfortable most of the shift. Complaints of his neck and shoulders hurting to wanting to eat. Patient states "where are all the pills I usually take when I'm in the hospital?" "Don't I get fentanyl?" Patient's sodium level remains low. 121 on last two checks. Wound Vac is patent. Supra Pubic tube is patent. Colostomy bag has loose dark consistency stool in it. Did not sleep much awake most of night. Pressure's remain in the 90's over 60's. Afebrile. Continue Care
[2024-11-17] MEDS ORDERED: NS 1,000 ML IV SCH (08:55)
[2024-11-17] MEDS ORDERED: Fenofibrate, Micronized 134 MG Capsule PO SCH (09:00)
[2024-11-17] MEDS ORDERED: Enoxaparin 40 MG/0.4 ML SYR SC SCH (09:00)
[2024-11-17] MEDS ORDERED: Atorvastatin 10 MG Tab PO SCH (09:00)
[2024-11-17] MEDS ORDERED: Polyethylene Glycol 3350 17 gm PO SCH ×2 (09:00→14:00)
--- NOTE | 2024-11-17 09:59 | NUR ---
UPDATE: THIS AT BEDSIDE TO GIVE PT MEDICATIONS. PT DIAPHORETIC AND HR HAS BEEN INCREASING OVER THE MORNING. BLOOD SUGAR TAKEN AND RESULTED 95. BLOOD PRESSURE STABLE AND PT DENIES ANY COMPLAINTS. PROVIDER NOTIFIED AND GAVE NO NEW ORDERS. CONCERNS DISCUSSED WITH CHARGE NURSE. PT MEDICATED WITH TYLENOL. PT A&OX4. FOLLOWING COMMANDS AND DENIES ANY COMPLAINTS BESIDES JUST FEELING HOT. PT REPOSITIONED IN BED. CONTINUES TO WATCH TV ON HIS COMPUTER. PT OFFERED TOUCH CALL LIGHT. STATES HE CAN ONLY USE A BLOW CALL LIGHT WHICH THIS FACILITY DOES NOT HAVE. PT EDUCATED ABOUT HOW HE CAN GET AHOLD OF STATT. NS CONTINUES AT 100ML/HR. WILL CONTINUE TO CARE FOR PT.
[2024-11-17] MEDS ORDERED: FentaNYL Citrate 50 MCG/ML 2 ML Injection IV PRN (10:00)
[2024-11-17 11:13] LABS: Bun/Creatinine Ratio 14.2 (12.0-20.0); Creatinine, Blood 0.64 mg/dL (0.60-1.20); Potassium, Blood 3.7 mmol/L (3.5-5.5)
[2024-11-17] MEDS ORDERED: Midodrine 5 MG Tab PO SCH (14:00)
[2024-11-17] MEDS ORDERED: TiZANidine HCl 4 MG Tab PO SCH (14:00)
--- NOTE | 2024-11-17 14:41 | NUR ---
UPDATE: THIS RN CALLED DR ABDI TO COMFIRM THAT SHE WANTED TO DC NS. PROVIDER WOULD LIKE TO DC PTS FLUIDS DUE TO HIS SODIUM LEVEL OF 125 FROM 121 AT 0330. FLUIDS STOPPED PER ORDERS.
[2024-11-17 15:26] LABS: Bun/Creatinine Ratio 13.5 (12.0-20.0); Calcium, Blood 7.8 mg/dL (8.5-10.1); Creatinine, Blood 0.67 mg/dL (0.60-1.20); Potassium, Blood 3.5 mmol/L (3.5-5.5)
--- NOTE | 2024-11-17 19:16 | NUR ---
SHIFT SUMMERY: PT A&OX4. FOLLOWS COMMANDS AND MAKES NEEDS KNOWN TO STAFF. PT HAD A EPISODE OF HYPOTENSION THIS AFTERNOON. PROVIDER ORDERED MIDODRINE AND B/P'S HAVE BEEN BETTER SINCE. PT REMAINED FREE OF ANY CP, PRESSURE, TIGHTNESS, SOB OR ANY OTHER COMPLAINTS DURING SHIFT. NO OTHER SIGNIFICANT EVENTS HAPPENED. REPORT TO HAIR FABIAN TO ASSUME CARE OF PT.
--- NOTE | 2024-11-17 19:47 | NUR ---
Care [facility] now. Report received from Chiara FABIAN. Patient able to participate in bedside report. Continue Care.
[2024-11-17] MEDS ORDERED: Arginine/Glutamine/Calcium Hmb 1 Packet PO SCH (21:00)
[2024-11-18] VITALS (9 sets, daily range): BP systolic 80–170; BP diastolic 57–98
[2024-11-18 03:47] LABS: BASOPHILS ABSOLUTE AUTO 0.02 K/mm3 (0.00-0.23); BASOPHILS PERCENT AUTO 0 % (0-2); EOSINOPHILS ABSOLUTE AUTO 0.02 K/mm3 (0.00-0.68); EOSINOPHILS PERCENT AUTO 0 % (0-6); Hematocrit 31.2 % (37.0-53.0); Hemoglobin 10.4 g/dL (13.5-17.5); IMMATURE GRAN ABSOLUTE AUTO 0.09 K/mm3 (0.00-0.10); IMMATURE GRAN PERCENT AUTO 1 % (0-1); LYMPHOCYTES ABSOLUTE AUTO 0.76 K/mm3 (0.84-5.20); LYMPHOCYTES PERCENT AUTO 10 % (21-46); MONOCYTES ABSOLUTE AUTO 0.92 K/mm3 (0.16-1.47); MONOCYTES PERCENT AUTO 12 % (4-13); Mean Corpuscular HGB 25.7 pg (26.0-34.0); Mean Corpuscular HGB Conc 33.3 g/dL (31.5-36.5); Mean Corpuscular Volume 77 fL (80-100); NEUTROPHILS ABSOLUTE AUTO 6.13 K/mm3 (1.96-9.15); NEUTROPHILS PERCENT AUTO 77 % (41-73); Platelet Count 237 K/mm3 (150-400); RDW Coefficient Variation 14.8 % (11.7-14.2); RDW Standard Deviation 41.5 fL (35.1-46.3); Red Blood Cell Count 4.05 M/mm3 (4.30-5.90); White Blood Cell Count 7.94 K/mm3 (4.00-11.30)
[2024-11-18 04:51] LABS: Bun/Creatinine Ratio 13.6 (12.0-20.0); Calcium, Blood 8.8 mg/dL (8.5-10.1); Creatinine, Blood 0.66 mg/dL (0.60-1.20); Percent Saturation 9.4 % (20.0-50.0); Potassium, Blood 3.5 mmol/L (3.5-5.5)
--- NOTE | 2024-11-18 05:13 | NUR ---
PATIENT HAD AN UNCOMFORTABLE NIGHT. DIAPHORESIS RELATED TO HIS BODY TRYING TO GET RID OF STOOL. BLOOD PRESSURES ARE LABILE. PATIENT'S COLOSTOMY EMPTIED TWICE ON THIS SHIFT. PATIENT ALSO PASSES STOOL FROM RECTUM. PATIENT STATES HE HAS A LOOP COLOSTOMY. GOOD OUP FROM CATHETER NOTED TONIGHT LEFT LEG MORE EDEMATOUS AND RED COMPARED TO LAST EVENING. WILL UPDATE DAY RN. WOUND VAC REMAINS PATENT. PATIENT IS VERY PARTICULAR ON HOW HE IS TURNED DOES NOT LIKE TURNING COMPLETE TURNS ONLY WANTS TO FLOATED. CONTINUE CARE.
[2024-11-18] MEDS ORDERED: Linezolid 600MG/Iso-Dext 300ML 300 ML IV ONE (12:35)
[2024-11-18] MEDS ORDERED: NS 1,000 ML IV SCH (16:35)
[2024-11-18] MEDS ORDERED: Ascorbic Acid 250 MG Chew PO SCH (17:00)
--- NOTE | 2024-11-18 17:53 | NUR ---
SHIFT SUMMARY: PT A&OX4. FOLLOWS COMMANDS AND MAKES NEEDS KNOWN TO STAFF. PT HAS REMAINED FREE OF ANY CP, PRESSURE, TIGHTNESS OR SOB. PT WAS HYPOTENSIVE THIS AFTERNOON AND WAS MEDICATED WITH MIDODRINE PER EMAR AND ENCOURAGED TO PUSH PO FLUIDS. PT HAS BEEN TURNED THROUGHOUT THE DAY. RED RASH TO HIS BLE REMAINS AND AN ULTRASOUND WAS PERFORMED THIS EVENING TO HIS LLE. PT HAS HAS A LARGE AMOUNT OR URINARY OUTPUT TODAY AND HIS OSTOMY CONTINUE TO EMPTY STOOL. NO OTHER SIGNIFICANT EVENTS HAPPENED DURING THIS SHIFT. WILL CONTINUE TO CARE FOR PT TILL END OF SHIFT.
--- NOTE | 2024-11-18 19:18 | NUR ---
CARE ASSUMED NOW FOR THIS PATIENT. REPORT RECEIVED FROM NICO FABIAN. PATIENT IS ABLE TO PARTICIPATE IN BEDSIDE REPORT. CONTINUE CARE
[2024-11-18] MEDS ORDERED: Linezolid 600MG/Iso-Dext 300ML 300 ML IV SCH (22:00)
[2024-11-19] VITALS (7 sets, daily range): BP systolic 92–174; BP diastolic 63–95
[2024-11-19 03:52] LABS: Hematocrit 33.4 % (37.0-53.0); Hemoglobin 11.1 g/dL (13.5-17.5); Mean Corpuscular HGB Conc 33.2 g/dL (31.5-36.5); Mean Corpuscular Volume 78 fL (80-100); Mean Platelet Volume 9.1 fL (9.1-12.4); Platelet Count 274 K/mm3 (150-400); RDW Coefficient Variation 15.3 % (11.7-14.2); RDW Standard Deviation 43.1 fL (35.1-46.3); Red Blood Cell Count 4.27 M/mm3 (4.30-5.90); White Blood Cell Count 7.13 K/mm3 (4.00-11.30)
[2024-11-19 04:18] LABS: Bun/Creatinine Ratio 9.5 (12.0-20.0); Calcium, Blood 8.9 mg/dL (8.5-10.1); Creatinine, Blood 0.52 mg/dL (0.60-1.20); Potassium, Blood 3.4 mmol/L (3.5-5.5)
--- NOTE | 2024-11-19 04:48 | NUR ---
PATIENT HAS BEEN AWAKE MOST OF THE NIGHT. DIAPHORETIC, UNCOMFORTABLE, SPASMS, COMPLAINING ABOUT HIS URINE AND BOWEL MOVEMENT BEING "TO WET". SUPRA PUBLIC CATH LEAKING. CHECKED BALLOON 7 ML IN BALLOON ADDED 1-2 MLS. SO MUCH URINE HAD LEAKED OUT OF HIS SUPRA PUBIC CATHETER THE ENTIRE BEDDING NEEDED TO BE CHANGED. WOUND VAC ON. TODAY IS HIS SCHEDULED VAC CHANGE DAY. PATIENT ALSO STATES HE NEEDS HIS SUPRA PUBIC CATH CHANGED. GOOD URINE OUTPUT. LOOSE SOFT LIQUIDY STOOL IN GOOD AMOUNTS. PATIENT'S ABD APPEARS NOT TO BE DISTENDED. LEFT LEG/ANKLE STILL SWOLLEN AND RED. PATIENT IS TOTAL CARES. CONTINUE CARE
[2024-11-19] MEDS ORDERED: Baclofen 10 MG Tab PO SCH (07:30)
[2024-11-19] MEDS ORDERED: Midodrine 5 MG Tab PO SCH (09:00)
[2024-11-19] MEDS ORDERED: Sod Ferric Gluc Complx/Sucrose 125 MG in NS 100 ML IV SCH (09:00)
[2024-11-19] MEDS ORDERED: Ferrous Sulfate 325 MG Tab PO SCH (09:00)
[2024-11-19] MEDS ORDERED: Potassium Chloride 10 Meq Tablet SA PO ONE (09:05)
--- NOTE | 2024-11-19 09:30 | NUR ---
AM NOTE: PATIENT ALERT AND ORIENTED X4. QUADRAPLEGIC WITH NO FEELING BELOW NIPPLE LINE. TOUCH CALL LIGHT NEXT TO HEAD. Q2 TURNS AND NEEDED. PERRLA. TELE SHOWING SINUS RHYTHM/SINUS TACH WITH HR 60-110'S. SBP ELEVATED 160-170'S. DR. ABDI AWARE OF VITALS. DENIES CHEST PAIN/PRESSURE/PALPITATIONS. IV ABX AND IV IRON INFUSED THIS AM. POWERGLIDE TO LEFT UPPER ARM. EDEMA NOTED TO BLE, WORSE IN LEFT WELL TRACE AMOUNTS IN BUE. ON ROOM AIR, LUNG SOUNDS CLEAR. OCCASIONAL WEAK/MOIST COUGH WITH SPUTUM PRODUCTION. SUCTION AT BEDSIDE. DENIES SOB. EVEN AND UNLABORED RESPIRTATIONS. BOWEL TONES PRESENT. TOLERATING PO DIET. FEEDING ASSISTANCE. COLOSTOMY IN PLACE WITH BROWN/LIQIUD OUTPUT. PATIENT ALSO HAD BOWEL MOVMENT HIS AM PER RECTUM. ATTENDS IN PLACE. SUPRAPUBIC CATH IN PLACE. PLAN TO CHANGE SP TODAY. CURRENT SP LEAKING AT SITE. URINE OUTPUT YELLOW/CLEAR. SACRAL WOUND, WOUND VAC IN PLACE AND PLANS TO CHANGE TODAY. REDNESS NOTED TO BLE, WORSE ON LEFT THAN RIGHT. OUTLINED WITH SKIN MARKER. DR. ABDI TO BEDSIDE THIS AM AND VISUALIZED. ELEVATING LEGS AT THIS TIME. HEEL PROTECTORS IN PLACE.
--- NOTE | 2024-11-19 14:43 | NUR ---
WOUND VAC / SUPRAPUBIC CATH WOUND VAC AND SUPRAPUBIC CATH CHANGES TODAY. CAREGIVER AT BEDSIDE.
--- NOTE | 2024-11-19 18:50 | NUR ---
SHIFT SUMMARY: NO ACUTE CHANGES. REMAINS ALERT AND ORIENTED. IV ABX INFUSED. VITAL SIGNS STABLE. REMAINS SINUS RHYTHM. ON ROOM AIR. SUPRAPUBIC CATH AND WOUND VAC CHANGES COMPLETED THIS SHIFT. CAREGIVER AND DAD AT BEDSIDE TODAY. TOUCH LIGHT CALL LIGHT IN REACH. PATIENT DENIES NEEDS AT THIS TIME.
--- NOTE | 2024-11-19 19:29 | NUR ---
CARE ASSUMMED NOW FOR THIS PATIENT. REPORT RECEIVED FROM DAY RN NICO. PATIENT IS ABLE TO PARTICIPATE IN BEDSIDE REPORT. CONTINUE CARE
[2024-11-19] MEDS ORDERED: NS 500 ML IV ONE (21:59)
[2024-11-20] VITALS (8 sets, daily range): BP systolic 95–168; BP diastolic 74–98
[2024-11-20 04:44] LABS: Bun/Creatinine Ratio 12.4 (12.0-20.0); Calcium, Blood 8.3 mg/dL (8.5-10.1); Creatinine, Blood 0.48 mg/dL (0.60-1.20); Potassium, Blood 3.2 mmol/L (3.5-5.5)
--- NOTE | 2024-11-20 05:16 | NUR ---
PATIENT HAD A RELATIVELY GOOD NIGHT COMPARED TO THE LAST TWO NIGHTS. SLEPT MORE, BUT WAKENS EARLY AM. GOOD UOP. LESS OUTPUT IN COLOSTOMY TONIGHT. LESS DIAPHORESIS TONIGHT. BLOOD PRESSURES ARE WNL. ON ROOM AIR. NO NEW ISSUES. CONTINUE CARE
[2024-11-20] MEDS ORDERED: Potassium Chloride 20 MEQ TabCR PO ONE (08:20)
[2024-11-20] MEDS ORDERED: Piperacillin/Tazobactam Sod 4.5 GM in NS 100 ML IV SCH (12:00)
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
[2024-11-21] MEDS ORDERED: GuaiFENesin 100 MG/5 ML 5ML UDC PO PRN (00:05)
[2024-11-21 04:10] VITALS: BP 124/85
[2024-11-21 05:25] LABS: BASOPHILS ABSOLUTE AUTO 0.02 K/mm3 (0.00-0.23); BASOPHILS PERCENT AUTO 0 % (0-2); EOSINOPHILS ABSOLUTE AUTO 0.07 K/mm3 (0.00-0.68); EOSINOPHILS PERCENT AUTO 1 % (0-6); Hematocrit 28.9 % (37.0-53.0); Hemoglobin 9.8 g/dL (13.5-17.5); IMMATURE GRAN ABSOLUTE AUTO 0.15 K/mm3 (0.00-0.10); IMMATURE GRAN PERCENT AUTO 2 % (0-1); LYMPHOCYTES ABSOLUTE AUTO 1.09 K/mm3 (0.84-5.20); LYMPHOCYTES PERCENT AUTO 15 % (21-46); MONOCYTES ABSOLUTE AUTO 0.49 K/mm3 (0.16-1.47); MONOCYTES PERCENT AUTO 7 % (4-13); Mean Corpuscular HGB Conc 33.9 g/dL (31.5-36.5); Mean Corpuscular Volume 77 fL (80-100); Mean Platelet Volume 8.8 fL (9.1-12.4); NEUTROPHILS ABSOLUTE AUTO 5.27 K/mm3 (1.96-9.15); NEUTROPHILS PERCENT AUTO 74 % (41-73); Platelet Count 281 K/mm3 (150-400); RDW Coefficient Variation 15.2 % (11.7-14.2); RDW Standard Deviation 42.5 fL (35.1-46.3); Red Blood Cell Count 3.77 M/mm3 (4.30-5.90); White Blood Cell Count 7.09 K/mm3 (4.00-11.30)
[2024-11-21 05:50] LABS: Albumin, Blood 2.2 g/dL (3.4-5.0); Albumin/Globulin Ratio 0.5 (0.8-1.8); Bilirubin, Total 0.4 mg/dL (0.1-1.0); Bun/Creatinine Ratio 9.2 (12.0-20.0); Calcium, Blood 8.3 mg/dL (8.5-10.1); Creatinine, Blood 0.54 mg/dL (0.60-1.20); Globulin, Blood 4.1 g/dL (2.2-4.0); Potassium, Blood 3.4 mmol/L (3.5-5.5); Total Protein, Blood 6.3 g/dL (6.4-8.2)
--- NOTE | 2024-11-21 06:02 | NUR ---
SHIFT SUMMARY PT IS A&O X4, ABLE TO MAKE NEEDS KNOWN, OBEYS COMMANDS, QUERPLEGIC/Q2 TURNS/ PT REFUSING SOME TURNS, PT ABLE TO MOVE NECK SIDE TO SIDE AND UP AND DOWN, PT USING PUSH CALL LIGHT APPROPRIATELY. SPO2 GREATER THAN 90% ON RA, PT REPORTING EXCESS SPUTUM/PHLEM THAT HE IS HAVING DIFFICULTY COUGHING/ PT HAS WEAK COUGH/ OFFERED TO ASSIST PT WITH YANKER-PT DECLINED/CALLED MD AND NEW PRN ORDERS PLACED. CONTINUOUS TELE MONITORING, PT SINUS 80 S, BP STABLE WITH MAP GREATER THAN 65, PT DENIES CHEST P/P T/O THIS SHIFT, PULSES PRESENT T/O, BLE EDEMA. BOWEL TONES PRESENT IN ALL 4Q, PT DENIES NAUSEA T/O THIS SHIFT, PT DENIES FEELINGS OF CONSTIPATION, COLOSTOMY DRESSING INTACT/ STOMA RED AND BEFFY. PT HAS SUPRAPUBIC CATH THAT IS PATENT AND DRAINING TO GRAVITY, URINE YELLOW IN COLOR. WOUND TO THE LEFT BOTTOCK, DRESSING IS C/D/I AND SET UP TO THE WOUND VAC. K OF 3.4 RESULTED IN AM LABS, NOTIFIED BED LOWEST POSITION, CALL LIGHT IN REACH, AWAITING TO GIVE REPORT TO ONCOMING RN.
[2024-11-21 07:43] VITALS: BP 146/99
[2024-11-21] MEDS ORDERED: Potassium Chloride 20 MEQ TabCR PO ONE (07:55)
[2024-11-21 16:22] VITALS: BP 127/85
--- NOTE | 2024-11-21 18:04 | NUR ---
End of Shift / Transfer to Medical Pt medical no telemetry status. VSS. Spo2 > 92% on RA. Pt quadriplegic. Q2h total assist repositioning. Wound vac to L buttocks. LLQ colostomy w/ unformed loose brown stool. Chronic suprapubic cath draining yellow urine. Pt anticipating discharge home after last IV abx treatment Tuesday. Report given to accepting medical floor nurse. Pt taken to rm [id number] @ approx 1800.
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
[2024-11-21 20:08] VITALS: BP 142/93
[2024-11-22] MEDS ORDERED: NS 250 ML IV PRN (00:05)
[2024-11-22 05:23] LABS: Bun/Creatinine Ratio 15.6 (12.0-20.0); Calcium, Blood 8.6 mg/dL (8.5-10.1); Creatinine, Blood 0.58 mg/dL (0.60-1.20); Potassium, Blood 3.9 mmol/L (3.5-5.5)
--- NOTE | 2024-11-22 06:03 | NUR ---
SHIFT SUMMARY PT A&Ox4. NO C/O PAIN. IV ABX GIVEN PER EMAR AND NS INFUSING TKO. PT REPOSITIONED T/O NIGHT. SUPRAPUBIC CATH DRAINING TO GRAVITY. COLOSTOMY EMPTIED AND PRODUCING SOFT, BROWN STOOL. PT SLEPT VERY LITTLE T/O NIGHT. VSS. WOUND VAC IN PLACE AND MAINTING SUCTION. NO ACUTE CHANGES. EASY TOUCH CALL LIGHT IN REACH. BED IN LOWEST POSITION.
[2024-11-22 06:12] VITALS: BP 145/91
[2024-11-22 17:01] VITALS: BP 115/93
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
[2024-11-22 19:50] VITALS: BP 116/83
[2024-11-23 03:54] VITALS: BP 86/64
--- NOTE | 2024-11-23 04:34 | NUR ---
SHIFT SUMMARY PT A&Ox4. NO C/O PAIN. IV ABX GIVEN PER EMAR. WOUND VAC IN PLACE AND MAINTAING SUCTION. SUPRAPUBIC CATH PATENT AND DRAINING CLEAR YELLOW URINE. MORNING BP WAS 86/64 WITH A MAP OF 72. HOSPITALIST NOTIFIED AND ORDERS GIVEN FOR 500ml BOLUS OF LR. PT TURNED PRN DURING THE NIGHT. EASY TOUCH CALL LIGHT IN REACH. BED IN LOWEST POSITION AND CALL LIGHT IN REACH.
[2024-11-23] MEDS ORDERED: Lactated Ringer's 500 ML IV ONE (05:00)
[2024-11-23 06:20] VITALS: BP 97/76
[2024-11-23 08:18] VITALS: BP 86/62
[2024-11-23] MEDS ORDERED: Midodrine HCl2.5 MG PO (11:37)
--- NOTE | 2024-11-23 12:19 | NUR ---
PT DISCHARGED HOME VIA [facility] ON A GURNEY. EDUCATION PROVIDED, PT VERBALIZED UNDERSTANDING OF DC INSTRUCTIONS.
== END 2024-11-23 12:17 | disposition home health service (06) | DRG 698 ==
LOC: ER 11:14 → PCU 15:23 → ER 15:23 → ICUE 15:23 → PCU 18:30 → MEDS 11-21 18:09
PROVIDERS: Internal Medicine; Physician Assistant; Student in an Organized Health Care Education/Training Program; ADMIT Internal Medicine
DX: T83.511A Infection and inflammatory reaction due to indwelling urethral catheter, initial encounter (principal); A41.02 Sepsis due to Methicillin resistant Staphylococcus aureus; L89.324 Pressure ulcer of left buttock, stage 4; A41.52 Sepsis due to Pseudomonas; G82.51 Quadriplegia, C1-C4 complete; K56.0 Paralytic ileus; E87.1 Hypo-osmolality and hyponatremia; K56.50 Intestinal adhesions [bands], unspecified as to partial versus complete obstruction; N39.0 Urinary tract infection, site not specified; E87.6 Hypokalemia; D63.8 Anemia in other chronic diseases classified elsewhere; N20.0 Calculus of kidney; K80.20 Calculus of gallbladder without cholecystitis without obstruction; E78.5 Hyperlipidemia, unspecified; K21.9 Gastro-esophageal reflux disease without esophagitis; E11.69 Type 2 diabetes mellitus with other specified complication; I10 Essential (primary) hypertension; Z87.442 Personal history of urinary calculi; Z98.1 Arthrodesis status; Z79.899 Other long term (current) drug therapy; Z93.3 Colostomy status; K75.3 Granulomatous hepatitis, not elsewhere classified; X58.XXXA Exposure to other specified factors, initial encounter; Z98.890 Other specified postprocedural states; Z86.19 Personal history of other infectious and parasitic diseases
CPT/HCPCS: 36415; 74177; 80048; 80053; 81001; 82607; 82728; 82746; 82947; 83540; 83550; 83605; 84145; 85025; 85027; 87040; 87077; 87086; 87186; 93971; 99284-25; A9270; C1751; J1650; J2020; J2543; J2916; J7030; J7040; J7050; J7120; Q9967

== ENCOUNTER 2024-11-28 19:58 | Inpatient (IN) | payer OTHER, MEDICARE ==
[~2024-11-28] VITALS: Ht 182.9 cm; Wt 82.1 kg
[~2024-11-28 19:58] MED LIST changes: +Midodrine HCl2.5 MG PO
[2024-11-28] MEDS ORDERED: Famotidine 10 MG/ML 2ML Vial IV ONE (20:25)
[2024-11-28] MEDS ORDERED: NS 1,000 ML IV SCH (20:25)
[2024-11-28 20:47] LABS: BASOPHILS ABSOLUTE AUTO 0.03 K/mm3 (0.00-0.23); BASOPHILS PERCENT AUTO 0 % (0-2); EOSINOPHILS ABSOLUTE AUTO 0.02 K/mm3 (0.00-0.68); EOSINOPHILS PERCENT AUTO 0 % (0-6); Hemoglobin 13.8 g/dL (13.5-17.5); IMMATURE GRAN ABSOLUTE AUTO 0.17 K/mm3 (0.00-0.10); IMMATURE GRAN PERCENT AUTO 1 % (0-1); LYMPHOCYTES ABSOLUTE AUTO 1.28 K/mm3 (0.84-5.20); LYMPHOCYTES PERCENT AUTO 8 % (21-46); MONOCYTES ABSOLUTE AUTO 1.08 K/mm3 (0.16-1.47); MONOCYTES PERCENT AUTO 7 % (4-13); Mean Corpuscular HGB 26.1 pg (26.0-34.0); Mean Corpuscular HGB Conc 32.9 g/dL (31.5-36.5); Mean Corpuscular Volume 80 fL (80-100); Mean Platelet Volume 8.6 fL (9.1-12.4); NEUTROPHILS ABSOLUTE AUTO 14.04 K/mm3 (1.96-9.15); NEUTROPHILS PERCENT AUTO 85 % (41-73); Platelet Count 278 K/mm3 (150-400); RDW Coefficient Variation 17.8 % (11.7-14.2); RDW Standard Deviation 43.4 fL (35.1-46.3); Red Blood Cell Count 5.28 M/mm3 (4.30-5.90); White Blood Cell Count 16.62 K/mm3 (4.00-11.30)
[2024-11-28 21:19] LABS: Source, Urine Clean Catch
[2024-11-28 21:20] LABS: Bun/Creatinine Ratio 18.4 (12.0-20.0); Calcium, Blood 10.1 mg/dL (8.5-10.1); Creatinine, Blood 0.65 mg/dL (0.60-1.20); Free Thyroxine 1.61 ng/dL (0.70-1.60); Magnesium, Blood 1.6 mg/dL (1.6-2.4); Potassium, Blood 4.5 mmol/L (3.5-5.5); Thyroid Stimulating Hormone 2.17 uIU/mL (0.360-4.800)
[2024-11-28 21:23] LABS: Appearance, Urine Cloudy (Clear); Blood, Urine 4+ (Neg); Color, Urine Yellow (P-Yellow); Glucose Qualitative, Urine Neg (Neg); Ketones, Urine Neg (Neg); Leukocyte Esterase, Urine 3+ (Neg); Nitrite, Urine Neg (Neg); Protein, Urine 3+ (Neg); Urobilinogen, Urine NORM (Normal)
[2024-11-28 21:26] LABS: Bilirubin, Urine 1+ (Neg)
[2024-11-28 21:29] LABS: White Blood Cells, Urine TNTC /hpf (0-5)
[2024-11-28 21:31] LABS: Influenza A, PCR NEGATIVE (NEGATIVE); Influenza B, PCR NEGATIVE (NEGATIVE); Resp Syncytial Virus, PCR NEGATIVE (NEGATIVE); SARS-Cov-2 (COVID-19) PCR, MMC NEGATIVE (NEGATIVE)
[2024-11-28 21:31] LABS: Bacteria Mod /hpf; Spermatozoa Few /hpf; Squamous Epithelial Cells Few /hpf (Few)
[2024-11-29] MEDS ORDERED: NS 1,000 ML IV SCH (00:15)
[2024-11-29] MEDS ORDERED: Vancomycin HCL 2,000 MG in NS 500 ML IV ONE (00:40)
[2024-11-29] MEDS ORDERED: Piperacillin/Tazobactam Sod 3.375 GM in NS 100 ML IV SCH (01:01)
[2024-11-29 01:59] VITALS: BP 109/86
[2024-11-29] MEDS ORDERED: Calcium Carbonate 500 MG Tab Chew PO PRN (03:30)
[2024-11-29 06:48] LABS: Hematocrit 43.2 % (37.0-53.0); Hemoglobin 14.3 g/dL (13.5-17.5); Mean Corpuscular HGB 26.7 pg (26.0-34.0); Mean Corpuscular HGB Conc 33.1 g/dL (31.5-36.5); Mean Corpuscular Volume 81 fL (80-100); Mean Platelet Volume 9.1 fL (9.1-12.4); Platelet Count 265 K/mm3 (150-400); RDW Standard Deviation 44.2 fL (35.1-46.3); Red Blood Cell Count 5.35 M/mm3 (4.30-5.90); White Blood Cell Count 16.05 K/mm3 (4.00-11.30)
[2024-11-29] MEDS ORDERED: TiZANidine HCl 4 MG Tab PO PRN (06:50)
[2024-11-29] MEDS ORDERED: Magnesium Sulf 2 GM/Water 50ML 50 ML IV ONE (07:00)
[2024-11-29 07:09] LABS: Albumin, Blood 3.5 g/dL (3.4-5.0); Albumin/Globulin Ratio 0.6 (0.8-1.8); Bilirubin, Total 0.7 mg/dL (0.1-1.0); Bun/Creatinine Ratio 21.8 (12.0-20.0); Creatinine, Blood 0.69 mg/dL (0.60-1.20); Globulin, Blood 5.5 g/dL (2.2-4.0); Potassium, Blood 4.3 mmol/L (3.5-5.5)
[2024-11-29 07:13] VITALS: BP 102/82
--- NOTE | 2024-11-29 07:59 | NUR ---
SHIFT SUMMARY; AFTER ADMISSION, PATIENT SLEPT IN SHORT INTERVALS, AWAKE OFTEN. REMAINS IN CONTACT PRECAUTIONS FOR MRSA IN HIS URINE. ABD MORE DISTENDED, CHARLIE DODGE TUMS ORDER.
[2024-11-29] MEDS ORDERED: Atorvastatin 10 MG Tab PO SCH (09:00)
[2024-11-29] MEDS ORDERED: Famotidine 20 MG Tab PO SCH (09:00)
[2024-11-29] MEDS ORDERED: Midodrine 2.5 MG Tab PO SCH (09:00)
[2024-11-29] MEDS ORDERED: Docusate Sodium 250 MG Cap PO SCH (09:00)
[2024-11-29] MEDS ORDERED: Lactobacil 2-S.Thermo-Bifido 1 1 Cap PO SCH (09:00)
[2024-11-29] MEDS ORDERED: Enoxaparin 40 MG/0.4 ML SYR SC SCH (09:00)
[2024-11-29] MEDS ORDERED: Baclofen 10 MG Tab PO SCH (09:00)
[2024-11-29] MEDS ORDERED: LINACLOTIDE 145 MCG PO SCH (09:00)
[2024-11-29] MEDS ORDERED: Fenofibrate, Micronized 134 MG Capsule PO SCH (09:00)
--- NOTE | 2024-11-29 09:16 | NUR ---
NG PLACED L NARE WITH NO DIFFICULTIES, AUSCULATION OF AIR AND VISUALIZATION OF STOMACH CONTENTS, PLACED TO LIS, SECURED WITH TAPE
[2024-11-29] MEDS ORDERED: Vancomycin HCL 1,250 MG in NS 250 ML IV SCH (14:00)
--- NOTE | 2024-11-29 14:58 | NUR ---
PATIENT REFUSES TO ALLOW THIS RN AND SHEN UNGER TO FLOAT HIS HIPS OR TO TURN HIM ON SIDE SIDE TO TAKE PRESSURE OFF WOUND ON BUTTOCKS. THIS RN UNABLE TO VISUALIZE WOUND ON BUTTOCKS. ATTEMPT TO EDUCATE PATIENT ON NECESSITY TO HAVE HIM ON HIS SIDE MET WITH MUCH RESISTANCE. THIS RN WAS ABLE TO SEE THAT PATIENTS BOXER SHORTS WERE STUCK TO THE SKIN ON HIS BOTTOM. PATIENT ADAMENTLY REFUSES TO ALLOW STAFF TO REMOVE THEM OR TO CLEAN HIS BOTTOM AREA TO REMOVE FECAL MATTER. AIR BED WAS ORDERED AFTER SHEN UNGER WAS ABLE TO ADVOCATE FOR THIS PATIENT AND HAVE IT CALLED TO SUPPLIER FOR DELIVERY. WAITING FOR THIS DELIVERY AND PATIENT SAYS HE FEELS THIS WILL MAKE HIM MORE COMFORTABLE. DYANI CARPENTER AND JOINER NOTIFIED OF PATIENTS RESISTANCE TO CARE.
[2024-11-29 16:17] VITALS: BP 95/81
--- NOTE | 2024-11-29 17:36 | NUR ---
PT HAS BEEN AOX4 ALL DAY. PT IS ABLE TO MAKE ALL NEEDS KNOWN. HOWEVER PT IS NOT COOPERATING WITH LETING HIS WOUNDVAC AND SKIN BE ASSESSED PROPERLY. PT IS FLAT REUSING TO BE TURNED MORE JUST ACCEPTS SMALL REPOSITONING. NG TUB IS GETTING OUTPT, BUT HAS SLOWED DOWN AGAIN. DID NG TUBE FLUSH AT 1725 PER ORDER AND MORE FLUIDS THEN SUCTIONED OUT TO CANISTER DARK GREEN IN COLOR. PT HAS CALL PAD IN REACH AND WILL BE MONITORED. REPORT WAS GIVEN TO JADON DIOP RN AND SHE IS TAKING OVER CARE TILL END OF SHIFT.
--- NOTE | 2024-11-29 18:30 | NUR ---
Pt resting in bed, watching tv, hung abx, and did some oral care, no acute changes. call light in reach.
[2024-11-29 20:15] VITALS: BP 104/80
[2024-11-30] MEDS ORDERED: FentaNYL Citrate 50 MCG/ML 2 ML Injection IV PRN (00:30)
--- NOTE | 2024-11-30 04:20 | NUR ---
SHIFT SUMMARY PATIENT HAD NO ACUTE CHANGES. ALERT ORIENTED AND BEDREST AND NPO. NG TUBE IN PLACE AND FLUSHED. PIV INTACT. IV ABXS INFUSED. DENIES CHEST PAIN, SOB, AND N/V. VSS/AFEBRILE. CBG 146. OSTOMY INTACT. REPORTED ABDOMINAL PAIN AND IV FENTANYL 50 MG GIVEN PER EMAR. SUPRAPUBIC CATH INTACT AND DRAINING. WOUND VAC TO LEFT BUTTOCK. CALL LIGHT IN REACH. BED IN LOWEST POSITION. WILL CONTINUE TO MONITOR UNTIL DAY SHIFT NURSE ASSUMES CARE.
[2024-11-30 04:48] VITALS: BP 94/71
[2024-11-30 05:50] LABS: BASOPHILS ABSOLUTE AUTO 0.01 K/mm3 (0.00-0.23); BASOPHILS PERCENT AUTO 0 % (0-2); EOSINOPHILS ABSOLUTE AUTO 0.01 K/mm3 (0.00-0.68); EOSINOPHILS PERCENT AUTO 0 % (0-6); Hematocrit 33.7 % (37.0-53.0); Hemoglobin 11.1 g/dL (13.5-17.5); IMMATURE GRAN ABSOLUTE AUTO 0.01 K/mm3 (0.00-0.10); IMMATURE GRAN PERCENT AUTO 0 % (0-1); LYMPHOCYTES ABSOLUTE AUTO 0.31 K/mm3 (0.84-5.20); LYMPHOCYTES PERCENT AUTO 7 % (21-46); MONOCYTES ABSOLUTE AUTO 0.67 K/mm3 (0.16-1.47); MONOCYTES PERCENT AUTO 15 % (4-13); Mean Corpuscular HGB 26.2 pg (26.0-34.0); Mean Corpuscular HGB Conc 32.9 g/dL (31.5-36.5); Mean Corpuscular Volume 80 fL (80-100); Mean Platelet Volume 8.7 fL (9.1-12.4); NEUTROPHILS ABSOLUTE AUTO 3.43 K/mm3 (1.96-9.15); NEUTROPHILS PERCENT AUTO 77 % (41-73); Platelet Count 235 K/mm3 (150-400); RDW Coefficient Variation 17.8 % (11.7-14.2); RDW Standard Deviation 44.7 fL (35.1-46.3); Red Blood Cell Count 4.24 M/mm3 (4.30-5.90); White Blood Cell Count 4.44 K/mm3 (4.00-11.30)
[2024-11-30 06:15] LABS: Magnesium, Blood 2.3 mg/dL (1.6-2.4)
[2024-11-30 06:17] LABS: Alanine Aminotransfer (ALT/SGP 20 U/L (12-78); Albumin/Globulin Ratio 0.7 (0.8-1.8); Alk Phos 62 U/L (50-136); Anion Gap 12 mmol/L (3-11); Aspartate Aminotrans (AST/SGOT 12 U/L (12-37); Bilirubin, Total 0.9 mg/dL (0.1-1.0); Blood Urea Nitrogen 32 mg/dL (8-24); Bun/Creatinine Ratio 21.6 (12.0-20.0); CO2, Blood 22 mmol/L (21-32); Calcium, Blood 9.1 mg/dL (8.5-10.1); Chloride, Blood 100 mmol/L (98-108); Creatinine, Blood 1.48 mg/dL (0.60-1.20); Globulin, Blood 4.4 g/dL (2.2-4.0); Glomerular Filtration Rate 57 (60-); Glucose, Blood 129 mg/dL (70-99); Potassium, Blood 4.3 mmol/L (3.5-5.5); Sodium, Blood 130 mmol/L (136-145); Total Protein, Blood 7.4 g/dL (6.4-8.2)
[2024-11-30] MEDS ORDERED: NS 1,000 ML IV SCH ×2 (06:57→10:45)
[2024-11-30 07:10] VITALS: BP 125/89
[2024-11-30] MEDS ORDERED: Cefepime HCl 2,000 MG in NS 100 ML IV SCH (11:00)
[2024-11-30 12:02] VITALS: BP 94/67
[2024-11-30 17:27] LABS: Anion Gap 10 mmol/L (3-11); Blood Urea Nitrogen 36 mg/dL (8-24); Bun/Creatinine Ratio 22.8 (12.0-20.0); CO2, Blood 24 mmol/L (21-32); Calcium, Blood 8.9 mg/dL (8.5-10.1); Chloride, Blood 104 mmol/L (98-108); Creatinine, Blood 1.58 mg/dL (0.60-1.20); Glomerular Filtration Rate 53 (60-); Glucose, Blood 95 mg/dL (70-99); Potassium, Blood 3.8 mmol/L (3.5-5.5); Sodium, Blood 134 mmol/L (136-145); Vancomycin, Random 30.9 ug/mL
--- NOTE | 2024-11-30 17:46 | NUR ---
SHIFT SUMMARY PT AOX4, COOPERATIVE, ABLE TO MAKE NEEDS KNOWN. PT IS QUADRIPLEGIC, ABLE TO FEEL PRESSURE IN FEET AND HAS FEELING ABOUT "NIPPLE-LEVEL" ON ARMS.ON SUCTION FOR BOWEL OBSTRUCTION. TURNING OFF SUCTION FOR 1 HOUR AFTER RN ASSESSMENT FOR ABSORPTION. SURPAPUBIC CATH INTACT AND DRAINING TO GRAVITY. PT TAKES MEDS WHOLE WITH FLUIDS. FLUSHING NG TUBE Q6 HRS WITH TAP WATER 40ML AND AIR LUMEN 40ML. WOUND VAC CHANGED THIS SHIFT WITH FAMILY HELP. SUCTION STILL DRAINING BOWEL-LIKE LIQUID. BED IN LOWEST POSITION, CALL LIGHT WTIHIN REACH.
[2024-11-30 19:42] VITALS: BP 82/62
[2024-11-30 20:40] VITALS: BP 94/65
[2024-12-01] VITALS (7 sets, daily range): BP systolic 83–133; BP diastolic 61–107
--- NOTE | 2024-12-01 05:19 | NUR ---
PT IS A/OX4, PLEASANT AND COOPERATIVE. PT PT IS QUADRAPLEGIC. PT WAS REPOSITIONED HE REQUESTED T/O THE NIGHT. PT HAS NG TUBE INPLACE WITH CONTINUOS LOW SUCTION, DRAINING DARK BROWN BILE. THE PTS OSTOMY HAD BROWN LOOSE STOOL AND GAS. THE PT HAS A SUPRPUBIC CATHETER IN PLACE AND DRAINING YELLOW URINE. PT NG TUBE WAS FLUSHED WITH WATER AND AIR PER INSTRUCTIONS. PT HAS A WOUND VAV APPLIED TO HIS BUTTOMS, DRESSING WAS CHANGED YESTERDAY. CALL LIGHT IN REACH
[2024-12-01 05:27] LABS: BASOPHILS ABSOLUTE AUTO 0.01 K/mm3 (0.00-0.23); BASOPHILS PERCENT AUTO 0 % (0-2); EOSINOPHILS ABSOLUTE AUTO 0.01 K/mm3 (0.00-0.68); EOSINOPHILS PERCENT AUTO 0 % (0-6); Hematocrit 26.7 % (37.0-53.0); Hemoglobin 8.5 g/dL (13.5-17.5); IMMATURE GRAN ABSOLUTE AUTO 0.02 K/mm3 (0.00-0.10); IMMATURE GRAN PERCENT AUTO 1 % (0-1); LYMPHOCYTES ABSOLUTE AUTO 0.51 K/mm3 (0.84-5.20); LYMPHOCYTES PERCENT AUTO 13 % (21-46); MONOCYTES ABSOLUTE AUTO 0.86 K/mm3 (0.16-1.47); MONOCYTES PERCENT AUTO 22 % (4-13); Mean Corpuscular HGB 26.2 pg (26.0-34.0); Mean Corpuscular HGB Conc 31.8 g/dL (31.5-36.5); Mean Corpuscular Volume 82 fL (80-100); Mean Platelet Volume 8.9 fL (9.1-12.4); NEUTROPHILS ABSOLUTE AUTO 2.44 K/mm3 (1.96-9.15); NEUTROPHILS PERCENT AUTO 63 % (41-73); Platelet Count 167 K/mm3 (150-400); RDW Coefficient Variation 17.3 % (11.7-14.2); RDW Standard Deviation 47.3 fL (35.1-46.3); Red Blood Cell Count 3.24 M/mm3 (4.30-5.90); White Blood Cell Count 3.85 K/mm3 (4.00-11.30)
[2024-12-01 06:01] LABS: Alanine Aminotransfer (ALT/SGP 17 U/L (12-78); Albumin, Blood 2.4 g/dL (3.4-5.0); Albumin/Globulin Ratio 0.7 (0.8-1.8); Alk Phos 48 U/L (50-136); Anion Gap 11 mmol/L (3-11); Aspartate Aminotrans (AST/SGOT 17 U/L (12-37); Bilirubin, Total 0.5 mg/dL (0.1-1.0); Blood Urea Nitrogen 33 mg/dL (8-24); Bun/Creatinine Ratio 22.4 (12.0-20.0); CO2, Blood 20 mmol/L (21-32); Calcium, Blood 8.5 mg/dL (8.5-10.1); Chloride, Blood 109 mmol/L (98-108); Creatinine, Blood 1.47 mg/dL (0.60-1.20); Globulin, Blood 3.6 g/dL (2.2-4.0); Glomerular Filtration Rate 57 (60-); Glucose, Blood 83 mg/dL (70-99); Potassium, Blood 3.9 mmol/L (3.5-5.5); Sodium, Blood 136 mmol/L (136-145); Vancomycin, Random 21.8 ug/mL
[2024-12-01] MEDS ORDERED: Lactated Ringer's 1,000 ML IV SCH (08:00)
[2024-12-01] MEDS ORDERED: Linezolid 600MG/Iso-Dext 300ML 300 ML IV SCH (09:00)
[2024-12-01] MEDS ORDERED: Baclofen 10 MG Tab PO PRN (11:00)
--- NOTE | 2024-12-01 15:59 | NUR ---
SHIFT SUMMARY PATIENT IN BED THIS SHIFT, USING SOFT TOUCH CALL LIGHT PLACED BESIDE HEAD. WOUND VAC FUNCTIONING AND IN PLACE. ACCEPTING OF FREQUENT REPOSITIONING. REQUESTING ROM ADL'S TO BE PERFORMED, SHEN COMPLETED THIS. BILAT HANDS 1+DEPENDENT EDEMA, ELEVATED. SUPRAPUBIC CATH IN PLACE, DRAINING YELLOW URINE FREELY TO GRAVITY. NG TUBE REMOVED PER DR GARRETT ORDER. TOLERATING CLEAR LIQUID DIET MODERATELY WELL, MILD INCREASE IN ABDOMINAL DISTENSION. LIQUID BROWN OUTPUT FROM COLOSTOMY. ABLE TO MAKE NEEDS KNOWN. CARES ONGOING.
[2024-12-02] VITALS (7 sets, daily range): BP systolic 88–164; BP diastolic 56–102
[2024-12-02] MEDS ORDERED: Midodrine 2.5 MG Tab PO SCH (00:10)
[2024-12-02] MEDS ORDERED: NS 500 ML IV ONE (00:10)
--- NOTE | 2024-12-02 01:18 | NUR ---
WHEN CHECKING ON PT AFTER CALL LIGHT. PT REPORTED FEELING THOUGH THEIR BP WAS LOW. WHEN CHECKED BP 83/61 AND 80'S/60'S AFTER MULTIPLE TRIES. HOSPITALIST NOTIFIED AND ORDERS GIVEN TO GIVE NS BOLUS 500ML X 1, AND TO RESTART PT HOME MIDODRINE DOSE 2.5 MG TID, WITH FIRST DOSE NOW. DURING BOLUS AND AFTER MIDODRINE GIVEN BP 93/70 AND WHEN BOLUS COMPLETE BP 107/79.
--- NOTE | 2024-12-02 02:45 | NUR ---
HOSPITALIST ON UNIT TO CHECK ON PT BP AND TOLD THAT IT HAS IMPROVED. ORDERS GIVEN TO LOWER LR RATE FROM 200 ML/HR TO 100 ML/HR X 1L TO AVOID FLUID OVERLOAD AND TO MONITOR PT BP WHILE BACK ON MIDODRINE.
[2024-12-02] MEDS ORDERED: Lactated Ringer's 1,000 ML IV ONE (02:50)
--- NOTE | 2024-12-02 04:48 | NUR ---
SHIFT SUMMARY NOC PT A/O X 4. PLEASANT AND COOPERATIVE WITH CARE. BP FOUND TO BE 83/61 WHEN PT HAD C/O OF FEELING LIKE THEY WERE GOING TO PASS OUT. HOSPITALIST NOTIFIED AND BOLUS OF NS 500ML AND MIDODRINE 2.5 MG RESTARTED. AFTER BOLUS COMPLETED BP 107/79. DURING ROUNDING ON UNIT HOSPITALIST GAVE ORDER TO DECREASE RATE OF LR INFUSION FROM 200 ML/HR TO 100 ML/HR X 1 BAG. PT HAS WOUND VAC IN PLACE ON L BUTTOCK DRAINING DARK EXUDATE, WOUND VAC DRESSING C/D/I, WELL MEPILEX ON R BUTTOCK. SUPRAPUBIC CATHETER IN PLACE DRAINING YELLOW URINE WITH GOOD OUTPUT. COLOSTOMY IN LUQ DRAINING SMALL AMOUNT OF DARK BROWN LIQUID STOOL, FINGER SWIPE PERFORMED TO CLEAR OBSTRUCTION @ STOMA. PT ON CONTACT ISOLATION FOR MRSA. PT CURRENTLY RESTING WITH BED IN LOWEST POSITION, AND CALL LIGHT WITHIN REACH.
[2024-12-02 05:45] LABS: BASOPHILS ABSOLUTE AUTO 0.01 K/mm3 (0.00-0.23); BASOPHILS PERCENT AUTO 0 % (0-2); EOSINOPHILS ABSOLUTE AUTO 0.02 K/mm3 (0.00-0.68); EOSINOPHILS PERCENT AUTO 1 % (0-6); Hematocrit 27.8 % (37.0-53.0); IMMATURE GRAN ABSOLUTE AUTO 0.01 K/mm3 (0.00-0.10); IMMATURE GRAN PERCENT AUTO 0 % (0-1); LYMPHOCYTES ABSOLUTE AUTO 0.87 K/mm3 (0.84-5.20); LYMPHOCYTES PERCENT AUTO 21 % (21-46); MONOCYTES ABSOLUTE AUTO 0.55 K/mm3 (0.16-1.47); MONOCYTES PERCENT AUTO 13 % (4-13); Mean Corpuscular HGB 26.6 pg (26.0-34.0); Mean Corpuscular HGB Conc 32.4 g/dL (31.5-36.5); Mean Corpuscular Volume 82 fL (80-100); Mean Platelet Volume 9.5 fL (9.1-12.4); NEUTROPHILS ABSOLUTE AUTO 2.74 K/mm3 (1.96-9.15); NEUTROPHILS PERCENT AUTO 65 % (41-73); Platelet Count 181 K/mm3 (150-400); RDW Coefficient Variation 17.2 % (11.7-14.2); RDW Standard Deviation 47.6 fL (35.1-46.3); Red Blood Cell Count 3.38 M/mm3 (4.30-5.90)
[2024-12-02 06:24] LABS: Albumin, Blood 2.4 g/dL (3.4-5.0); Albumin/Globulin Ratio 0.6 (0.8-1.8); Bilirubin, Total 0.4 mg/dL (0.1-1.0); Bun/Creatinine Ratio 18.8 (12.0-20.0); Calcium, Blood 8.8 mg/dL (8.5-10.1); Creatinine, Blood 1.12 mg/dL (0.60-1.20); Globulin, Blood 3.9 g/dL (2.2-4.0); Potassium, Blood 3.4 mmol/L (3.5-5.5); Total Protein, Blood 6.3 g/dL (6.4-8.2)
[2024-12-02] MEDS ORDERED: Potassium Chloride 20 MEQ/15 ML UDC PO ONE (08:05)
--- NOTE | 2024-12-02 11:42 | NUR ---
PATIENT STATING HE FEELS "WOOZY", REQUESTED HIS BP BE TAKEN. BP REVEALED HYPOTENSION, NUMBER IN CHART. MIDODRINE ADMIN OF SCHEDULE, AM DOSE WAS HELD DUE TO HYPERTENSION.
--- NOTE | 2024-12-02 19:24 | NUR ---
SHIFT SUMMARY PATIENT IN BED THIS SHIFT. ASSIST WITH PASSIVE ROM PER PATIENT REQUEST. LITTLE OUTPUT VIA STOMA. SUPRAPUBIC INTACT, DRAINING YELLOW URINE TO GRAVITY. ADVANCED DIET TO FULL LIQUID, TOLERATED WELL. NO NAUSEA/VOMITING, ABD MILDLY DISTENDED AND SOFT. ACCEPTING OF REPOSITIONING. WOUND VAC FUNCTIONING IN PLACE, PERSONAL EQUIPMENT IN USE. TOLERATING IV ABX WELL. MIDODRINE, MUSCLE RELAXERS AND BLOOD PRESSURE DISCUSSED AT ROUNDING, DOC DECLINED ANY CHANGES AT THIS TIME. CALL LIGHT POSITIONED AT SIDE OF HEAD, ABLE TO MAKE NEEDS KNOWN. CARES ONGOING.
[2024-12-02] MEDS ORDERED: NS 250 ML IV PRN (19:30)
[2024-12-03 01:47] VITALS: BP 132/99
[2024-12-03 06:14] VITALS: BP 143/83
--- NOTE | 2024-12-03 06:15 | NUR ---
SHIFT SUMMARY NOC PT A/O X 4. PLEASANT AND COOPERATIVE WITH CARE. BP 164/95 AFTER SHIFT CHANGE, SCHEDULED MIDODRINE HELD. PT GIVEN MUSCLE RELAXERS WITH BEDTIME MEDS AND HAD C/O OF FEELING WOOZY, BP CHECKED AND WAS 107/79, MIDODRINE GIVEN OFF SCHEDULE. HS CBG 128. PT COLOSTOMY IS HAVING MODERATE DARK BROWN LIQUID OUTPUT. PT REPORTS EAGERNESS TO ADVANCE DIET TO SOLID FOODS. SUPRAPUBIC CATHETER IN PLACE WITH GOOD OUTPUT CLEAR YELLOW URINE. PT HAS WOUND VAC IN PLACE ON L GLUTEAL DRESSING C/D/I AND SCHEDULED FOR CHANGE TODAY. PT CURRENTLY RESTING WITH BED IN LOWEST POSITION, AND CALL LIGHT WITHIN REACH.
[2024-12-03 06:22] LABS: BASOPHILS ABSOLUTE AUTO 0.01 K/mm3 (0.00-0.23); BASOPHILS PERCENT AUTO 0 % (0-2); EOSINOPHILS ABSOLUTE AUTO 0.04 K/mm3 (0.00-0.68); EOSINOPHILS PERCENT AUTO 1 % (0-6); Hematocrit 29.4 % (37.0-53.0); Hemoglobin 9.5 g/dL (13.5-17.5); IMMATURE GRAN ABSOLUTE AUTO 0.01 K/mm3 (0.00-0.10); IMMATURE GRAN PERCENT AUTO 0 % (0-1); LYMPHOCYTES ABSOLUTE AUTO 1.18 K/mm3 (0.84-5.20); LYMPHOCYTES PERCENT AUTO 30 % (21-46); MONOCYTES ABSOLUTE AUTO 0.51 K/mm3 (0.16-1.47); MONOCYTES PERCENT AUTO 13 % (4-13); Mean Corpuscular HGB 26.5 pg (26.0-34.0); Mean Corpuscular HGB Conc 32.3 g/dL (31.5-36.5); Mean Corpuscular Volume 82 fL (80-100); Mean Platelet Volume 8.8 fL (9.1-12.4); NEUTROPHILS ABSOLUTE AUTO 2.13 K/mm3 (1.96-9.15); NEUTROPHILS PERCENT AUTO 55 % (41-73); Platelet Count 183 K/mm3 (150-400); RDW Coefficient Variation 17.1 % (11.7-14.2); RDW Standard Deviation 47.2 fL (35.1-46.3); Red Blood Cell Count 3.59 M/mm3 (4.30-5.90); White Blood Cell Count 3.88 K/mm3 (4.00-11.30)
[2024-12-03 07:06] LABS: Calcium, Blood 8.9 mg/dL (8.5-10.1); Potassium, Blood 3.7 mmol/L (3.5-5.5)
[2024-12-03 07:08] VITALS: BP 167/104
[2024-12-03] MEDS ORDERED: TiZANidine HCl 4 MG Tab PO PRN (07:30)
[2024-12-03] MEDS ORDERED: Lactated Ringer's 1,000 ML IV SCH ×2 (08:00)
[2024-12-03] MEDS ORDERED: Arginine/Glutamine/Calcium Hmb 1 Packet PO SCH (09:00)
[2024-12-03] MEDS ORDERED: Baclofen 10 MG Tab PO SCH (09:00)
[2024-12-03] MEDS ORDERED: Linezolid 600MG/Iso-Dext 300ML 300 ML IV SCH (11:05)
[2024-12-03 11:44] VITALS: BP 142/94
[2024-12-03] MEDS ORDERED: JUVEN PACKET1 EAC3 PO (14:14)
[2024-12-03] MEDS ORDERED: LACT PO (14:15)
[2024-12-03] MEDS ORDERED: LINE600 PO (14:16)
[2024-12-03 14:48] VITALS: BP 136/96
[2024-12-03 16:00] VITALS: BP 103/77
--- NOTE | 2024-12-03 17:30 | NUR ---
DISCHARGE NOTE PATIENT WOUND VAC CHANGED OUT TODAY WITH HOME SUPPLIES FATHER HAD BROUGHT IN. DISCHARGE PACKET AND INSTRUCITONS WENT OVER WITH PATIENT. MEDS FAXED TO [place] [facility]. [employer]SPORT PICKED UP. ALL BELONGINGS GATHERED AND SENT WITH PATIENT. PATIENTS FATHER HAD COME TO CLAIMS SERVICE ADJUSTOR LAPTOP AND ARM TO CONTROL LAPTOP. NO NEW QUESTIONS OR CONCERNS PRIOR TO DC.
--- NOTE | 2024-12-03 17:45 | NUR ---
WOUND VAC CHAGNED TODAY WITH CLEANER OPERATORRUI ROSARIO RN
[2024-12-05 14:28] LABS: CORTISOL, FREE BY ED/LC-MS/MS 2.92 ug/dL
== END 2024-12-03 17:30 | disposition home or self-care (01) | DRG 698 ==
LOC: ER 19:58 → ERHOLD 22:33 → MEDS 22:33
PROVIDERS: Emergency Medicine; Family Medicine; Student in an Organized Health Care Education/Training Program; ADMIT Internal Medicine
PROC: 3E03329 Introduction of Other Anti-infective into Peripheral Vein, Percutaneous Approach (ICD-10-PCS; principal; 2024-11-29)
PROC: 0D9670Z Drainage of Stomach with Drainage Device, Via Natural or Artificial Opening (ICD-10-PCS; 2024-11-29)
DX: T83.510A Infection and inflammatory reaction due to cystostomy catheter, initial encounter (principal); A41.9 Sepsis, unspecified organism; G82.50 Quadriplegia, unspecified; L89.154 Pressure ulcer of sacral region, stage 4; M86.8X8 Other osteomyelitis, other site; E87.1 Hypo-osmolality and hyponatremia; K56.609 Unspecified intestinal obstruction, unspecified as to partial versus complete obstruction; N17.9 Acute kidney failure, unspecified; K21.9 Gastro-esophageal reflux disease without esophagitis; E78.5 Hyperlipidemia, unspecified; E11.69 Type 2 diabetes mellitus with other specified complication; F12.90 Cannabis use, unspecified, uncomplicated; R14.0 Abdominal distension (gaseous); Z04.1 Encounter for examination and observation following transport accident; Z98.1 Arthrodesis status; Z87.442 Personal history of urinary calculi; Z90.89 Acquired absence of other organs; Z98.890 Other specified postprocedural states; Z79.84 Long term (current) use of oral hypoglycemic drugs; Z79.899 Other long term (current) drug therapy; Z90.49 Acquired absence of other specified parts of digestive tract; Z87.19 Personal history of other diseases of the digestive system; Z86.14 Personal history of Methicillin resistant Staphylococcus aureus infection; Z93.3 Colostomy status; S14.10 Unspecified injury of cervical spinal cord; Y84.9 Medical procedure, unspecified as the cause of abnormal reaction of the patient, or of later complication, without mention of misadventure at the time of the procedure
CPT/HCPCS: 0241U; 36415; 71045; 74177; 80048; 80053; 80202; 81001; 82530; 82947; 83605; 83735; 84295; 84439; 84443; 85025; 85027; 87040; 87077; 87086; 87147; 87186; 94760; 96374; 99285-25; A9270; J0692; J1650; J2020; J2543; J3010; J3370; J3475; J7030; J7040; J7050; J7120; Q9967

== ENCOUNTER 2024-12-21 05:02 | Day surgery (SDC) | payer MEDICARE, OTHER ==
[~2024-12-21 05:02] MED LIST changes: +JUVEN PACKET1 EAC3 PO; +LACT PO; +LINE600 PO
== END 2024-12-21 23:00 | disposition home or self-care (01) ==
LOC: WOUND 05:02
DX: L89.324 Pressure ulcer of left buttock, stage 4 (principal); E11.69 Type 2 diabetes mellitus with other specified complication
CPT/HCPCS: A6213; G0463

== ENCOUNTER 2025-01-11 08:00 | Day surgery (SDC) | payer MEDICARE, OTHER | END 2025-01-11 23:43 | disposition home or self-care (01) | LOC: WOUND 08:00 | DX: L89.324 Pressure ulcer of left buttock, stage 4 (principal); E11.69 Type 2 diabetes mellitus with other specified complication; R53.2 Functional quadriplegia | CPT/HCPCS: A6213; G0463 ==

== ENCOUNTER → 2025-02-20 | Outpatient (CLI) | payer MEDICARE, OTHER ==
[2025-02-20 09:00] LABS: Source, Urine Foley catheter
[2025-02-20 12:28] LABS: White Blood Cells, Urine 25-50 /hpf (0-5)
== END | disposition home or self-care (01) ==
LOC: LAB 08:57 → LAB SHORT 08:57
PROVIDERS: Nurse Practitioner Family
DX: Z93.59 Other cystostomy status (principal)
CPT/HCPCS: 81015; 87077; 87086; 87186

== ENCOUNTER 2025-02-22 01:39 | Day surgery (SDC) | payer MEDICARE, OTHER | END 2025-02-22 23:00 | disposition home or self-care (01) | LOC: WOUND 01:39 | DX: L89.324 Pressure ulcer of left buttock, stage 4 (principal); L89.624 Pressure ulcer of left heel, stage 4; E11.69 Type 2 diabetes mellitus with other specified complication; R53.2 Functional quadriplegia | CPT/HCPCS: A6213; G0463 ==

== ENCOUNTER 2025-03-14 08:40 | Inpatient (IN) | payer MEDICARE, OTHER ==
[~2025-03-14] VITALS: Ht 182.9 cm; Wt 82.0 kg
[2025-03-14] MEDS ORDERED: NS 1,000 ML IV SCH ×2 (08:55→12:50)
[2025-03-14] MEDS ORDERED: Ondansetron HCl 2 MG / ML 2ML Vial IV ONE (09:15)
[2025-03-14 09:55] LABS: BASOPHILS ABSOLUTE AUTO 0.05 K/mm3 (0.00-0.23); BASOPHILS PERCENT AUTO 0 % (0-2); EOSINOPHILS ABSOLUTE AUTO 0.00 K/mm3 (0.00-0.68); EOSINOPHILS PERCENT AUTO 0 % (0-6); Hematocrit 50.3 % (37.0-53.0); Hemoglobin 17.0 g/dL (13.5-17.5); IMMATURE GRAN ABSOLUTE AUTO 0.23 K/mm3 (0.00-0.10); IMMATURE GRAN PERCENT AUTO 1 % (0-1); LYMPHOCYTES ABSOLUTE AUTO 0.88 K/mm3 (0.84-5.20); LYMPHOCYTES PERCENT AUTO 4 % (21-46); MONOCYTES ABSOLUTE AUTO 1.88 K/mm3 (0.16-1.47); MONOCYTES PERCENT AUTO 8 % (4-13); Mean Corpuscular HGB Conc 33.8 g/dL (31.5-36.5); Mean Corpuscular Volume 79 fL (80-100); NEUTROPHILS ABSOLUTE AUTO 20.81 K/mm3 (1.96-9.15); NEUTROPHILS PERCENT AUTO 87 % (41-73); NRBC ABSOLUTE 0.00 K/mm3 (0.00-0.02); NRBC Auto 0.0 /100 WBC (0.0-0.2); Platelet Count 286 K/mm3 (150-400); RDW Coefficient Variation 18.1 % (11.7-14.2); RDW Standard Deviation 46.5 fL (35.1-46.3)
[2025-03-14 10:19] LABS: Influenza A, PCR NEGATIVE (NEGATIVE); Influenza B, PCR NEGATIVE (NEGATIVE); Resp Syncytial Virus, PCR NEGATIVE (NEGATIVE); SARS-Cov-2 (COVID-19) PCR, MMC NEGATIVE (NEGATIVE)
[2025-03-14 10:36] LABS: pH Blood Venous 7.44 (7.34-7.37)
[2025-03-14 11:10] LABS: Alanine Aminotransfer (ALT/SGP 18.0 U/L (12-78); Albumin, Blood 2.6 g/dL (3.4-5.0); Albumin/Globulin Ratio 0.6 (0.8-1.8); Anion Gap 14.0 mmol/L (3-11); Aspartate Aminotrans (AST/SGOT 17.0 U/L (12-37); Bilirubin, Total 0.5 mg/dL (0.1-1.0); Blood Urea Nitrogen 10.0 mg/dL (8-24); CO2, Blood 20.0 mmol/L (21-32); Calcium, Blood 8.7 mg/dL (8.5-10.1); Chloride, Blood 92.0 mmol/L (98-108); Creatinine, Blood 0.86 mg/dL (0.60-1.20); Globulin, Blood 4.2 g/dL (2.2-4.0); Glucose, Blood 157.0 mg/dL (70-99); Potassium, Blood 3.5 mmol/L (3.5-5.5); Sodium, Blood 122.0 mmol/L (136-145); Total Protein, Blood 6.8 g/dL (6.4-8.2)
[2025-03-14] MEDS ORDERED: CefTRIAXone Sodium 1,000 MG in NS 100 ML IV ONE (11:20)
[2025-03-14] MEDS ORDERED: FentaNYL Citrate 50 MCG/ML 2 ML Injection IV PRN (13:10)
[2025-03-14] MEDS ORDERED: Ondansetron HCl 2 MG / ML 2ML Vial IV PRN (13:10)
[2025-03-14 13:13] LABS: Source, Urine Suprapubic Cath
[2025-03-14 13:16] LABS: Bilirubin, Urine Neg (Neg); Glucose Qualitative, Urine Neg (Neg); Ketones, Urine Neg (Neg); Leukocyte Esterase, Urine 3+ (Neg); Protein, Urine 3+ (Neg); Specific Gravity, Urine 1.015 (1.003-1.022); Urobilinogen, Urine NORM (Normal)
[2025-03-14 13:22] LABS: Color, Urine Pale Yellow (P-Yellow)
[2025-03-14 13:24] LABS: Red Blood Cells, Urine 50-100 /hpf (0-2); White Blood Cells, Urine 50-100 /hpf (0-5)
[2025-03-14 14:15] VITALS: BP 95/61
[2025-03-14] MEDS ORDERED: Insulin Regular 100 UNIT/ML 10ML Vial SC SCH (18:00)
[2025-03-14 19:50] VITALS: BP 96/70
[2025-03-15 03:44] VITALS: BP 133/84
[2025-03-15 05:26] LABS: BASOPHILS ABSOLUTE AUTO 0.02 K/mm3 (0.00-0.23); BASOPHILS PERCENT AUTO 0 % (0-2); EOSINOPHILS ABSOLUTE AUTO 0.00 K/mm3 (0.00-0.68); EOSINOPHILS PERCENT AUTO 0 % (0-6); Hematocrit 34.2 % (37.0-53.0); Hemoglobin 11.4 g/dL (13.5-17.5); IMMATURE GRAN ABSOLUTE AUTO 0.03 K/mm3 (0.00-0.10); IMMATURE GRAN PERCENT AUTO 0 % (0-1); LYMPHOCYTES ABSOLUTE AUTO 0.76 K/mm3 (0.84-5.20); LYMPHOCYTES PERCENT AUTO 6 % (21-46); MONOCYTES ABSOLUTE AUTO 1.04 K/mm3 (0.16-1.47); MONOCYTES PERCENT AUTO 8 % (4-13); Mean Corpuscular HGB Conc 33.3 g/dL (31.5-36.5); Mean Corpuscular Volume 78 fL (80-100); NEUTROPHILS ABSOLUTE AUTO 10.67 K/mm3 (1.96-9.15); NEUTROPHILS PERCENT AUTO 85 % (41-73); NRBC ABSOLUTE 0.00 K/mm3 (0.00-0.02); NRBC Auto 0.0 /100 WBC (0.0-0.2); Platelet Count 192 K/mm3 (150-400); RDW Coefficient Variation 16.2 % (11.7-14.2); RDW Standard Deviation 45.6 fL (35.1-46.3)
[2025-03-15 05:54] LABS: Alanine Aminotransfer (ALT/SGP 19.0 U/L (12-78); Albumin, Blood 3.0 g/dL (3.4-5.0); Albumin/Globulin Ratio 0.7 (0.8-1.8); Anion Gap 9.0 mmol/L (3-11); Aspartate Aminotrans (AST/SGOT 30.0 U/L (12-37); Bilirubin, Total 0.5 mg/dL (0.1-1.0); Blood Urea Nitrogen 14.0 mg/dL (8-24); CO2, Blood 30.0 mmol/L (21-32); Calcium, Blood 9.5 mg/dL (8.5-10.1); Chloride, Blood 96.0 mmol/L (98-108); Creatinine, Blood 0.7 mg/dL (0.60-1.20); Globulin, Blood 4.3 g/dL (2.2-4.0); Glucose, Blood 104.0 mg/dL (70-99); Potassium, Blood 3.7 mmol/L (3.5-5.5); Sodium, Blood 131.0 mmol/L (136-145); Total Protein, Blood 7.3 g/dL (6.4-8.2)
[2025-03-15] MEDS ORDERED: Pantoprazole Sodium 40 MG Injection IV SCH (06:00)
[2025-03-15 08:08] VITALS: BP 116/78
[2025-03-15 16:26] VITALS: BP 108/53
[2025-03-15 19:24] VITALS: BP 110/76
[2025-03-15] MEDS ORDERED: Lactobacil 2-S.Thermo-Bifido 1 1 Cap PO SCH (21:00)
[2025-03-16] MEDS ORDERED: D5W-1/2NS 1,000 ML IV SCH (01:40)
[2025-03-16 05:09] VITALS: BP 132/95
[2025-03-16 07:37] VITALS: BP 141/97
[2025-03-16 14:11] VITALS: BP 161/83
[2025-03-16 19:06] VITALS: BP 148/93
[2025-03-17 05:55] LABS: BASOPHILS ABSOLUTE AUTO 0.02 K/mm3 (0.00-0.23); BASOPHILS PERCENT AUTO 0 % (0-2); EOSINOPHILS ABSOLUTE AUTO 0.06 K/mm3 (0.00-0.68); EOSINOPHILS PERCENT AUTO 1 % (0-6); Hematocrit 30.3 % (37.0-53.0); Hemoglobin 9.8 g/dL (13.5-17.5); IMMATURE GRAN ABSOLUTE AUTO 0.01 K/mm3 (0.00-0.10); IMMATURE GRAN PERCENT AUTO 0 % (0-1); LYMPHOCYTES ABSOLUTE AUTO 0.91 K/mm3 (0.84-5.20); LYMPHOCYTES PERCENT AUTO 18 % (21-46); MONOCYTES ABSOLUTE AUTO 0.67 K/mm3 (0.16-1.47); MONOCYTES PERCENT AUTO 13 % (4-13); Mean Corpuscular HGB Conc 32.3 g/dL (31.5-36.5); Mean Corpuscular Volume 79 fL (80-100); NEUTROPHILS ABSOLUTE AUTO 3.34 K/mm3 (1.96-9.15); NEUTROPHILS PERCENT AUTO 67 % (41-73); NRBC ABSOLUTE 0.00 K/mm3 (0.00-0.02); NRBC Auto 0.0 /100 WBC (0.0-0.2); Platelet Count 147 K/mm3 (150-400); RDW Coefficient Variation 16.0 % (11.7-14.2); RDW Standard Deviation 45.9 fL (35.1-46.3)
[2025-03-17 06:19] LABS: Anion Gap 9.0 mmol/L (3-11); Blood Urea Nitrogen 6.0 mg/dL (8-24); CO2, Blood 27.0 mmol/L (21-32); Calcium, Blood 8.6 mg/dL (8.5-10.1); Chloride, Blood 99.0 mmol/L (98-108); Creatinine, Blood 0.54 mg/dL (0.60-1.20); Glucose, Blood 90.0 mg/dL (70-99); Potassium, Blood 2.8 mmol/L (3.5-5.5); Sodium, Blood 132.0 mmol/L (136-145)
[2025-03-17 07:44] VITALS: BP 166/93
[2025-03-17] MEDS ORDERED: Potassium Chl 20MEQ/Water100ML 100 ML IV ONE (15:00)
[2025-03-17 15:51] VITALS: BP 122/97
[2025-03-17 19:41] VITALS: BP 109/74
[2025-03-18 05:24] VITALS: BP 150/95
[2025-03-18 06:24] LABS: Magnesium, Blood 1.2 mg/dL (1.6-2.4)
[2025-03-18 06:25] LABS: Anion Gap 8.0 mmol/L (3-11); Blood Urea Nitrogen 5.0 mg/dL (8-24); CO2, Blood 25.0 mmol/L (21-32); Calcium, Blood 8.7 mg/dL (8.5-10.1); Chloride, Blood 103.0 mmol/L (98-108); Creatinine, Blood 0.48 mg/dL (0.60-1.20); Glucose, Blood 84.0 mg/dL (70-99); Potassium, Blood 3.3 mmol/L (3.5-5.5); Sodium, Blood 133.0 mmol/L (136-145)
[2025-03-18 08:21] VITALS: BP 149/93
[2025-03-18] MEDS ORDERED: Magnesium Hydroxide Conc 10 ML UDC PO SCH (09:00)
[2025-03-18] MEDS ORDERED: Magnesium Sulf 2 GM/Water 50ML 50 ML IV ONE (11:15)
[2025-03-18] MEDS ORDERED: Enoxaparin 40 MG/0.4 ML SYR SC SCH (12:00)
[2025-03-18 18:28] VITALS: BP 130/90
[2025-03-18 19:01] VITALS: BP 113/72
[2025-03-18] MEDS ORDERED: Insulin Regular 100 UNIT/ML 10ML Vial SC SCH (21:00)
[2025-03-19] VITALS (7 sets, daily range): BP systolic 76–139; BP diastolic 64–103
[2025-03-19 05:50] LABS: Anion Gap 10.0 mmol/L (3-11); Blood Urea Nitrogen 4.0 mg/dL (8-24); CO2, Blood 23.0 mmol/L (21-32); Calcium, Blood 8.5 mg/dL (8.5-10.1); Chloride, Blood 102.0 mmol/L (98-108); Creatinine, Blood 0.54 mg/dL (0.60-1.20); Glucose, Blood 103.0 mg/dL (70-99); Magnesium, Blood 1.5 mg/dL (1.6-2.4); Phosphorus, Blood 2.2 mg/dL (2.5-4.9); Potassium, Blood 3.4 mmol/L (3.5-5.5); Sodium, Blood 132.0 mmol/L (136-145)
[2025-03-19] MEDS ORDERED: Potassium Phosphate Dibasic 30 MM in Dextrose 5% 500 ML IV STA (09:57)
[2025-03-19] MEDS ORDERED: Mag Sulfate 1 GM/D5% 100ML 100 ML IV STA (09:57)
[2025-03-20 05:42] LABS: Anion Gap 8.0 mmol/L (3-11); Blood Urea Nitrogen 4.0 mg/dL (8-24); CO2, Blood 25.0 mmol/L (21-32); Calcium, Blood 8.4 mg/dL (8.5-10.1); Chloride, Blood 104.0 mmol/L (98-108); Creatinine, Blood 0.49 mg/dL (0.60-1.20); Glucose, Blood 90.0 mg/dL (70-99); Magnesium, Blood 1.5 mg/dL (1.6-2.4); Potassium, Blood 4.0 mmol/L (3.5-5.5); Sodium, Blood 133.0 mmol/L (136-145)
[2025-03-20 05:49] VITALS: BP 119/91
[2025-03-20 08:17] VITALS: BP 188/108
[2025-03-20] MEDS ORDERED: Mag Sulfate 1 GM/D5% 100ML 100 ML IV STA (11:15)
[2025-03-20] MEDS ORDERED: NS 250 ML IV PRN (11:45)
[2025-03-20 14:59] VITALS: BP 145/95
[2025-03-20 20:41] VITALS: BP 158/85
[2025-03-21] VITALS (11 sets, daily range): BP systolic 65–174; BP diastolic 46–96
[2025-03-21] MEDS ORDERED: MIDO5 PO (17:18)
== END 2025-03-21 17:25 | disposition home or self-care (01) | DRG 388 ==
LOC: ER 08:40 → SURS 12:45
PROVIDERS: Physician Assistant; Student in an Organized Health Care Education/Training Program; ADMIT Internal Medicine
PROC: 0D9670Z Drainage of Stomach with Drainage Device, Via Natural or Artificial Opening (ICD-10-PCS; principal; 2025-03-14)
PROC: 0TPBX0Z Removal of Drainage Device from Bladder, External Approach (ICD-10-PCS; 2025-03-14)
PROC: 0T9B70Z Drainage of Bladder with Drainage Device, Via Natural or Artificial Opening (ICD-10-PCS; 2025-03-14)
DX: K56.609 Unspecified intestinal obstruction, unspecified as to partial versus complete obstruction (principal); G82.50 Quadriplegia, unspecified; L89.154 Pressure ulcer of sacral region, stage 4; L89.623 Pressure ulcer of left heel, stage 3; L89.324 Pressure ulcer of left buttock, stage 4; E87.1 Hypo-osmolality and hyponatremia; G82.20 Paraplegia, unspecified; M46.28 Osteomyelitis of vertebra, sacral and sacrococcygeal region; R65.10 Systemic inflammatory response syndrome (SIRS) of non-infectious origin without acute organ dysfunction; K21.9 Gastro-esophageal reflux disease without esophagitis; E78.5 Hyperlipidemia, unspecified; I95.9 Hypotension, unspecified; I10 Essential (primary) hypertension; E11.69 Type 2 diabetes mellitus with other specified complication; E87.6 Hypokalemia; D63.8 Anemia in other chronic diseases classified elsewhere; E83.42 Hypomagnesemia; Z79.84 Long term (current) use of oral hypoglycemic drugs; Z79.899 Other long term (current) drug therapy; Z87.442 Personal history of urinary calculi; Z98.1 Arthrodesis status; Z98.890 Other specified postprocedural states
CPT/HCPCS: 36415; 71045; 74018; 74177; 80048; 80053; 81001; 82803; 82947; 83605; 83735; 84100; 84295; 85025; 85651; 86140; 87040; 87077; 87086; 87186; 87637; 93005; 93010; 96374-59; 96375; 99285-25; A9270; J0696; J1650; J1815; J1956; J2405; J2470; J3010; J3475; J3480; J7030; J7042; J7050; J7060; J7120; Q9967

== ENCOUNTER 2025-04-05 00:39 | Day surgery (SDC) | payer MEDICARE, OTHER | END 2025-04-05 23:00 | disposition home or self-care (01) | LOC: WOUND 00:39 | DX: L89.324 Pressure ulcer of left buttock, stage 4 (principal); E11.69 Type 2 diabetes mellitus with other specified complication; R53.2 Functional quadriplegia | CPT/HCPCS: A6213; G0463 ==

== ENCOUNTER 2025-04-19 02:14 | Day surgery (SDC) | payer MEDICARE, OTHER | END 2025-04-19 23:00 | disposition home or self-care (01) | LOC: WOUND 02:14 | DX: L89.324 Pressure ulcer of left buttock, stage 4 (principal); E11.9 Type 2 diabetes mellitus without complications; R53.2 Functional quadriplegia | CPT/HCPCS: A6213; G0463 ==

== ENCOUNTER 2025-05-10 00:30 | Day surgery (SDC) | payer MEDICARE, OTHER | END 2025-05-10 23:00 | disposition home or self-care (01) | LOC: WOUND 00:30 | DX: L89.324 Pressure ulcer of left buttock, stage 4 (principal); E11.69 Type 2 diabetes mellitus with other specified complication; R53.2 Functional quadriplegia | CPT/HCPCS: A6213; G0463 ==

== ENCOUNTER 2025-06-04 17:54 | Inpatient (IN) | payer OTHER, MEDICARE ==
[~2025-06-04] VITALS: Ht 182.9 cm; Wt 78.9 kg
[~2025-06-04 17:54] MED LIST changes: -ACET325 PO; -LOSA25 PO; -MACRODANTIN100 M8 PO
[2025-06-04] MEDS ORDERED: Piperacillin/Tazobactam Sod 4.5 GM in NS 100 ML IV ONE (19:30)
[2025-06-04] MEDS ORDERED: NS 1,000 ML IV SCH ×2 (19:30→20:45)
[2025-06-04 20:12] LABS: BASOPHILS ABSOLUTE AUTO 0.02 K/mm3 (0.00-0.23); BASOPHILS PERCENT AUTO 0 % (0-2); EOSINOPHILS ABSOLUTE AUTO 0.00 K/mm3 (0.00-0.68); EOSINOPHILS PERCENT AUTO 0 % (0-6); Hematocrit 33.0 % (37.0-53.0); Hemoglobin 11.1 g/dL (13.5-17.5); IMMATURE GRAN ABSOLUTE AUTO 0.28 K/mm3 (0.00-0.10); IMMATURE GRAN PERCENT AUTO 1 % (0-1); LYMPHOCYTES ABSOLUTE AUTO 0.32 K/mm3 (0.84-5.20); LYMPHOCYTES PERCENT AUTO 1 % (21-46); MONOCYTES ABSOLUTE AUTO 1.03 K/mm3 (0.16-1.47); MONOCYTES PERCENT AUTO 4 % (4-13); Mean Corpuscular HGB Conc 33.6 g/dL (31.5-36.5); Mean Corpuscular Volume 75 fL (80-100); NEUTROPHILS ABSOLUTE AUTO 22.66 K/mm3 (1.96-9.15); NEUTROPHILS PERCENT AUTO 93 % (41-73); NRBC ABSOLUTE 0.00 K/mm3 (0.00-0.02); NRBC Auto 0.0 /100 WBC (0.0-0.2); Platelet Count 211 K/mm3 (150-400); RDW Coefficient Variation 16.4 % (11.7-14.2); RDW Standard Deviation 44.5 fL (35.1-46.3)
[2025-06-04 20:32] LABS: Alanine Aminotransfer (ALT/SGP 19.0 U/L (12-78); Albumin, Blood 3.0 g/dL (3.4-5.0); Albumin/Globulin Ratio 0.7 (0.8-1.8); Anion Gap 14.0 mmol/L (3-11); Aspartate Aminotrans (AST/SGOT 16.0 U/L (12-37); Bilirubin, Total 0.9 mg/dL (0.1-1.0); Blood Urea Nitrogen 8.0 mg/dL (8-24); CO2, Blood 22.0 mmol/L (21-32); Calcium, Blood 9.2 mg/dL (8.5-10.1); Chloride, Blood 89.0 mmol/L (98-108); Creatinine, Blood 0.67 mg/dL (0.60-1.20); Globulin, Blood 4.2 g/dL (2.2-4.0); Glucose, Blood 133.0 mg/dL (70-99); Magnesium, Blood 1.6 mg/dL (1.6-2.4); Phosphorus, Blood 2.5 mg/dL (2.5-4.9); Potassium, Blood 3.8 mmol/L (3.5-5.5); Sodium, Blood 121.0 mmol/L (136-145); Total Protein, Blood 7.2 g/dL (6.4-8.2)
[2025-06-04] MEDS ORDERED: NS 500 ML IV SCH (20:45)
[2025-06-04 21:56] LABS: Source, Urine Clean Catch
[2025-06-04 22:00] LABS: Bilirubin, Urine Neg (Neg); Glucose Qualitative, Urine Neg (Neg); Ketones, Urine Neg (Neg); Leukocyte Esterase, Urine 3+ (Neg); Protein, Urine 1+ (Neg); Specific Gravity, Urine 1.010 (1.003-1.022); Urobilinogen, Urine NORM (Normal)
[2025-06-04 22:01] LABS: Color, Urine Pale Yellow (P-Yellow)
[2025-06-04 22:05] LABS: White Blood Cells, Urine 25-50 /hpf (0-5)
[2025-06-05] VITALS (87 sets, daily range): BP systolic 59–160; BP diastolic 44–97
[2025-06-05] MEDS ORDERED: NS 1,000 ML IV SCH ×2 (00:30→06:20)
[2025-06-05] MEDS ORDERED: FLU VACC TS2025-26(6MOS UP)/PF 45 MCG/0.5 ML SYRINGE IM SCH (00:30)
[2025-06-05 01:20] LABS: Anion Gap 13.0 mmol/L (3-11); Blood Urea Nitrogen 8.0 mg/dL (8-24); CO2, Blood 21.0 mmol/L (21-32); Calcium, Blood 9.2 mg/dL (8.5-10.1); Chloride, Blood 98.0 mmol/L (98-108); Creatinine, Blood 0.59 mg/dL (0.60-1.20); Glucose, Blood 121.0 mg/dL (70-99); Potassium, Blood 3.7 mmol/L (3.5-5.5); Sodium, Blood 128.0 mmol/L (136-145)
[2025-06-05] MEDS ORDERED: Piperacillin/Tazobactam Sod 3.375 GM in NS 100 ML IV SCH (02:00)
[2025-06-05] MEDS ORDERED: NS 500 ML IV ONE (02:20)
[2025-06-05] MEDS ORDERED: NS 500 ML IV SCH (03:00)
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
[2025-06-05 03:47] LABS: BASOPHILS ABSOLUTE AUTO 0.04 K/mm3 (0.00-0.23); BASOPHILS PERCENT AUTO 0 % (0-2); EOSINOPHILS ABSOLUTE AUTO 0.01 K/mm3 (0.00-0.68); EOSINOPHILS PERCENT AUTO 0 % (0-6); Hematocrit 34.8 % (37.0-53.0); Hemoglobin 11.6 g/dL (13.5-17.5); IMMATURE GRAN ABSOLUTE AUTO 0.31 K/mm3 (0.00-0.10); IMMATURE GRAN PERCENT AUTO 1 % (0-1); LYMPHOCYTES ABSOLUTE AUTO 0.55 K/mm3 (0.84-5.20); LYMPHOCYTES PERCENT AUTO 2 % (21-46); MONOCYTES ABSOLUTE AUTO 2.15 K/mm3 (0.16-1.47); MONOCYTES PERCENT AUTO 8 % (4-13); Mean Corpuscular HGB Conc 33.3 g/dL (31.5-36.5); Mean Corpuscular Volume 77 fL (80-100); NEUTROPHILS ABSOLUTE AUTO 23.65 K/mm3 (1.96-9.15); NEUTROPHILS PERCENT AUTO 89 % (41-73); NRBC ABSOLUTE 0.00 K/mm3 (0.00-0.02); NRBC Auto 0.0 /100 WBC (0.0-0.2); Platelet Count 197 K/mm3 (150-400); RDW Coefficient Variation 16.8 % (11.7-14.2); RDW Standard Deviation 46.5 fL (35.1-46.3)
[2025-06-05 04:13] LABS: Alanine Aminotransfer (ALT/SGP 20.0 U/L (12-78); Albumin, Blood 2.8 g/dL (3.4-5.0); Albumin/Globulin Ratio 0.6 (0.8-1.8); Anion Gap 14.0 mmol/L (3-11); Aspartate Aminotrans (AST/SGOT 38.0 U/L (12-37); Bilirubin, Total 1.1 mg/dL (0.1-1.0); Blood Urea Nitrogen 8.0 mg/dL (8-24); CO2, Blood 18.0 mmol/L (21-32); Calcium, Blood 9.4 mg/dL (8.5-10.1); Chloride, Blood 100.0 mmol/L (98-108); Creatinine, Blood 0.69 mg/dL (0.60-1.20); Globulin, Blood 4.7 g/dL (2.2-4.0); Glucose, Blood 104.0 mg/dL (70-99); Potassium, Blood 4.8 mmol/L (3.5-5.5); Sodium, Blood 127.0 mmol/L (136-145); Total Protein, Blood 7.5 g/dL (6.4-8.2)
--- NOTE | 2025-06-05 06:36 | NUR ---
SHIFT SUMMARY RECEIVED PT VIA BED FROM PCU, TRANSFERRED TO ICU BED, MONITORS PLACED. A/O X4, ANSWERS APPROP, MAKES NEEDS KNOWN. QUADRIPLEGIC, TOTAL CARE. LEVOPHED INFUSING AT 1 MCG TO KEEP MAP >65. LEFT PERIPHERAL IV DISLODGED DURING TRANSFER TO ICU BED. NEW POWERGLIDE PLACED MENG, VESTA WELL. HR 110'-120'S, SINUS. O2 SAT 98-99% ON RA. DENIES RESP DISTRESS. COLOSTOMY AND SUPRAPUBIC CATHETER PRESENT ON ADMIT. LOW GRADE FEVER 99.2, SLIGHTLY DIAPHORETIC. WILL UPDATE DAY RN WITH ALL OUTSTANDING ISSUES AND PROBLEMS TO DATE.
[2025-06-05] MEDS ORDERED: Insulin Human Lispro 100 Units/ML 3ML Syringe SC SCH (07:30)
[2025-06-05] MEDS ORDERED: Enoxaparin 40 MG/0.4 ML SYR SC SCH (09:00)
[2025-06-05] MEDS ORDERED: Lactobacil 2-S.Thermo-Bifido 1 1 Cap PO SCH (09:00)
--- NOTE | 2025-06-05 11:53 | NUR ---
Pt. is awake and welcomes my visit. Pt. is pleasant. Facilitated a life review and listened with empathy and a calming presence. Pt. verbalized his 17yr journey as a quadapedic Pt. Pt. displayed evidence of being encouraged. Considered matters of gabriela and belief. Prayed with the Pt. Pt. verbalized gratitude for the spiritual care visit.
[2025-06-05] MEDS ORDERED: Amiodarone HCl 450 MG in NS 250 ML IV SCH (17:40)
--- NOTE | 2025-06-05 18:51 | NUR ---
Summary. Pt alert and oriented all shift. Pt directed turns and personal care this shift. Fever and heartrate increased this afternoon, Dr. Grijalva notified. Pt given tylenol and later started on amiodarone due to rhythm change to afib with RVR. Levophed titrated off at 1050 this morning, midodrine started q8 with good effect. No other acute events this shift, see chart for further details.
[2025-06-06] VITALS (67 sets, daily range): BP systolic 91–174; BP diastolic 65–123
[2025-06-06 05:14] LABS: BASOPHILS ABSOLUTE AUTO 0.03 K/mm3 (0.00-0.23); BASOPHILS PERCENT AUTO 0 % (0-2); EOSINOPHILS ABSOLUTE AUTO 0.00 K/mm3 (0.00-0.68); EOSINOPHILS PERCENT AUTO 0 % (0-6); Hematocrit 27.2 % (37.0-53.0); Hemoglobin 9.0 g/dL (13.5-17.5); IMMATURE GRAN ABSOLUTE AUTO 0.07 K/mm3 (0.00-0.10); IMMATURE GRAN PERCENT AUTO 1 % (0-1); LYMPHOCYTES ABSOLUTE AUTO 1.02 K/mm3 (0.84-5.20); LYMPHOCYTES PERCENT AUTO 7 % (21-46); MONOCYTES ABSOLUTE AUTO 1.22 K/mm3 (0.16-1.47); MONOCYTES PERCENT AUTO 9 % (4-13); Mean Corpuscular HGB Conc 33.1 g/dL (31.5-36.5); Mean Corpuscular Volume 76 fL (80-100); NEUTROPHILS ABSOLUTE AUTO 11.67 K/mm3 (1.96-9.15); NEUTROPHILS PERCENT AUTO 83 % (41-73); NRBC ABSOLUTE 0.00 K/mm3 (0.00-0.02); NRBC Auto 0.0 /100 WBC (0.0-0.2); Platelet Count 145 K/mm3 (150-400); RDW Coefficient Variation 16.8 % (11.7-14.2); RDW Standard Deviation 46.5 fL (35.1-46.3)
[2025-06-06 05:31] LABS: Anion Gap 8.0 mmol/L (3-11); Blood Urea Nitrogen 9.0 mg/dL (8-24); CO2, Blood 23.0 mmol/L (21-32); Calcium, Blood 9.0 mg/dL (8.5-10.1); Chloride, Blood 103.0 mmol/L (98-108); Creatinine, Blood 0.75 mg/dL (0.60-1.20); Glucose, Blood 98.0 mg/dL (70-99); Potassium, Blood 2.9 mmol/L (3.5-5.5); Sodium, Blood 131.0 mmol/L (136-145)
--- NOTE | 2025-06-06 06:05 | NUR ---
DR CONSULT AWARE OF PT AM LABS, POTASSIUM 2.9, MD ORDER IV REPLACEMENT POTASSIUM PER EMAR.
--- NOTE | 2025-06-06 06:41 | NUR ---
SHIFT SUMMARY A&O x4. PT DIRECTS CARE, UNABLE TO USE CALL LIGHT R/T HX: QUADRAPALEGIA. O2 SAT >95% ON RA. SINUS HR 80-110s, DENIES CHEST PAIN/PRESSURE, MAP >65. AMIODARONE CURRENTLY INFUSING AT 0.5MG/MIN. LR INFUSING @ 150mL/HR. PT MEDICATED c TYLENOL R/T 100.2 TEMP. TOLERATING PO INTAKE. SUPRAPUBIC CATH DRAINING YELLOW URINE TO GRAVITY. OSTOMY c 75mL OUTPUT THIS SHIFT (LIQUID/BROWN), PASSING FLATUS. Q2 TURNS. COCCYX DRESSING C/D/I. CALL LIGHT IN REACH, BED IN LOWEST POSITION, WILL REPORT TO DAY RN.
[2025-06-06 14:03] LABS: Magnesium, Blood 1.3 mg/dL (1.6-2.4); Potassium, Blood 3.3 mmol/L (3.5-5.5); Thyroid Stimulating Hormone 0.476 uIU/mL (0.360-4.800)
[2025-06-06] MEDS ORDERED: Magnesium Sulf 2 GM/Water 50ML 50 ML IV ONE (15:40)
[2025-06-06] MEDS ORDERED: NS 250 ML IV PRN (16:05)
[2025-06-06] MEDS ORDERED: CefTRIAXone Sodium 1,000 MG in NS 100 ML IV SCH (18:00)
--- NOTE | 2025-06-06 18:34 | NUR ---
Summary. Pt alert and oriented all shift. Continues directing turns Q2. Amiodarone off as of 1800 tonight, sinus rhythm this shift. Midodrine held all shift. Wound repacked and dressed. No acute events, see chart for further details.
[2025-06-07] VITALS (10 sets, daily range): BP systolic 122–147; BP diastolic 85–97
[2025-06-07 04:15] LABS: BASOPHILS ABSOLUTE AUTO 0.02 K/mm3 (0.00-0.23); BASOPHILS PERCENT AUTO 0 % (0-2); EOSINOPHILS ABSOLUTE AUTO 0.02 K/mm3 (0.00-0.68); EOSINOPHILS PERCENT AUTO 0 % (0-6); Hematocrit 25.3 % (37.0-53.0); Hemoglobin 8.3 g/dL (13.5-17.5); IMMATURE GRAN ABSOLUTE AUTO 0.03 K/mm3 (0.00-0.10); IMMATURE GRAN PERCENT AUTO 0 % (0-1); LYMPHOCYTES ABSOLUTE AUTO 0.67 K/mm3 (0.84-5.20); LYMPHOCYTES PERCENT AUTO 9 % (21-46); MONOCYTES ABSOLUTE AUTO 0.78 K/mm3 (0.16-1.47); MONOCYTES PERCENT AUTO 10 % (4-13); Mean Corpuscular HGB Conc 32.8 g/dL (31.5-36.5); Mean Corpuscular Volume 77 fL (80-100); NEUTROPHILS ABSOLUTE AUTO 6.38 K/mm3 (1.96-9.15); NEUTROPHILS PERCENT AUTO 81 % (41-73); NRBC ABSOLUTE 0.00 K/mm3 (0.00-0.02); NRBC Auto 0.0 /100 WBC (0.0-0.2); Platelet Count 142 K/mm3 (150-400); RDW Coefficient Variation 16.7 % (11.7-14.2); RDW Standard Deviation 47.0 fL (35.1-46.3)
[2025-06-07 04:30] LABS: Alanine Aminotransfer (ALT/SGP 16.0 U/L (12-78); Albumin, Blood 2.2 g/dL (3.4-5.0); Albumin/Globulin Ratio 0.5 (0.8-1.8); Anion Gap 8.0 mmol/L (3-11); Aspartate Aminotrans (AST/SGOT 11.0 U/L (12-37); Bilirubin, Total 0.5 mg/dL (0.1-1.0); Blood Urea Nitrogen 6.0 mg/dL (8-24); CO2, Blood 24.0 mmol/L (21-32); Calcium, Blood 8.8 mg/dL (8.5-10.1); Chloride, Blood 102.0 mmol/L (98-108); Creatinine, Blood 0.6 mg/dL (0.60-1.20); Globulin, Blood 4.2 g/dL (2.2-4.0); Glucose, Blood 94.0 mg/dL (70-99); Potassium, Blood 3.1 mmol/L (3.5-5.5); Sodium, Blood 131.0 mmol/L (136-145); Total Protein, Blood 6.4 g/dL (6.4-8.2)
--- NOTE | 2025-06-07 05:51 | NUR ---
SHIFT SUMMARY A&O x4. PT DIRECTS CARE, UNABLE TO USE CALL LIGHT R/T HX: QUADRAPALEGIA. O2 SAT >95% ON RA. HR - NSR, DENIES CHEST PAIN/PRESSURE, MAP >65. MIDODRINE HELD THIS SHIFT. TOLERATING PO INTAKE. SUPRAPUBIC CATH DRAINING YELLOW URINE TO GRAVITY. OSTOMY c 50mL OUTPUT THIS SHIFT (LIQUID/BROWN), PASSING FLATUS. Q2 TURNS. COCCYX DRESSING C/D/I. CALL LIGHT IN REACH, BED IN LOWEST POSITION, WILL REPORT TO DAY RN.
--- NOTE | 2025-06-07 05:56 | NUR ---
SHIFT SUMMARY A&O x4. SPO2 >92% ON RA, HR 80-110s, MAP >65, MEDICATED x1 THIS SHIFT R/T HTN. TOLERATING LIQUID PO INTAKE, DENIES N/V. PT REPORTS INTERMITTENT SHARP ABD/GAS PAIN. PUREWICK IN PLACE R/T INCONT. PT REPORTS FREUQENCY/BURNING/DIFFICULTY c URINATION. 3% NS INFUSING @ 30mLS/HR. SODIUM LEVEL @ 122. 1 PERSON ASSIST R/T WEAKNESS & BASELINE TREMORS. PT DID NOT SLEEP WELL OVERNIGHT. CALL LIGHT IN REACH, BED IN LOWEST POSITION, WILL REPORT TO DAY RN.
[2025-06-07] MEDS ORDERED: Vancomycin (Pharmacy Consult) IV PRN (11:20)
[2025-06-07 12:49] LABS: Campylobacter Sp Not Detected (NOT DETECT); E. Coli O157 Not Detected (NOT DETECT); Enteroaggregative E. coli-EAEC Not Detected (NOT DETECT); Enteropathogenic E. coli-EPEC Not Detected (NOT DETECT); Enterotoxigenic E. coli-ETEC Not Detected (NOT DETECT); Salmonella Sp Not Detected (NOT DETECT); Shiga Toxin-prod E. coli-STEC Not Detected (NOT DETECT); Shigella/Enteroin E. coli-EIEC Not Detected (NOT DETECT); Vibrio Sp Not Detected (NOT DETECT)
[2025-06-07 14:20] LABS: Magnesium, Blood 1.4 mg/dL (1.6-2.4); Potassium, Blood 3.4 mmol/L (3.5-5.5)
[2025-06-07] MEDS ORDERED: Magnesium Sulf 2 GM/Water 50ML 50 ML IV ONE (14:55)
--- NOTE | 2025-06-07 18:11 | NUR ---
TRANSFER TO MEDICAL REPORT CALLED BY RUI BAKER. PT TAKEN TO ROOM 352 VIA BED AT 1745. ALL PT BELONGINGS AND MEDS SENT WITH PT.
--- NOTE | 2025-06-07 18:17 | NUR ---
SHIFT SUMMARY- ICU TRANSFER. PATIENT IS ALL SET UP IN ROOM. IVS RUNNING. PATIENT IS EATING DINNER SINCE IT WAS DELAYED DURING THE TRANSFER. PATIENT WITH NEED SKIN ASSESSMENT FROM ORNAMENTAL METAL ERECTOR APPRENTICE.
--- NOTE | 2025-06-07 18:28 | NUR ---
SHIFT SUMMARY- A&Ox4. COOPERATIVE WITH CARE. CALLS APPROPRIATELY AND IS ABLE TO ADVOCATE NEEDS EFFECTIVELY. TELE NS, NO EVENTS. BREATHING EVEN AND UNLABORED ON RA AND AT REST. PATIENT IS ON PUREWIK DUE TO LASIX TREATMENT, LIMITED MOBILITY AND PAIN. NO BM SINCE 06/02, PATIENT DECLINES TREATMENT STATING HE WILL SELF TREAT ONCE HE GETS HOME. PAIN MANAGED PER EMR. PATIENT WORKED WITH PT TODAY AND IS RESTING IN THE BEDSIDE CHAIR. BED IN LOWEST POSITION, CALL LIGHT WITHIN REACH, ALL NEEDS MET. REPORT TO ONCOMING NURSE.
[2025-06-08] VITALS (7 sets, daily range): BP systolic 103–183; BP diastolic 73–113
[2025-06-08 06:04] LABS: BASOPHILS ABSOLUTE AUTO 0.02 K/mm3 (0.00-0.23); BASOPHILS PERCENT AUTO 0 % (0-2); EOSINOPHILS ABSOLUTE AUTO 0.08 K/mm3 (0.00-0.68); EOSINOPHILS PERCENT AUTO 2 % (0-6); Hematocrit 25.0 % (37.0-53.0); Hemoglobin 8.3 g/dL (13.5-17.5); IMMATURE GRAN ABSOLUTE AUTO 0.02 K/mm3 (0.00-0.10); IMMATURE GRAN PERCENT AUTO 0 % (0-1); LYMPHOCYTES ABSOLUTE AUTO 0.48 K/mm3 (0.84-5.20); LYMPHOCYTES PERCENT AUTO 10 % (21-46); MONOCYTES ABSOLUTE AUTO 0.79 K/mm3 (0.16-1.47); MONOCYTES PERCENT AUTO 16 % (4-13); Mean Corpuscular HGB Conc 33.2 g/dL (31.5-36.5); Mean Corpuscular Volume 77 fL (80-100); NEUTROPHILS ABSOLUTE AUTO 3.60 K/mm3 (1.96-9.15); NEUTROPHILS PERCENT AUTO 72 % (41-73); NRBC ABSOLUTE 0.00 K/mm3 (0.00-0.02); NRBC Auto 0.0 /100 WBC (0.0-0.2); Platelet Count 154 K/mm3 (150-400); RDW Coefficient Variation 16.4 % (11.7-14.2); RDW Standard Deviation 46.6 fL (35.1-46.3)
[2025-06-08 06:28] LABS: Anion Gap 7.0 mmol/L (3-11); Blood Urea Nitrogen 8.0 mg/dL (8-24); CO2, Blood 26.0 mmol/L (21-32); Calcium, Blood 8.9 mg/dL (8.5-10.1); Chloride, Blood 101.0 mmol/L (98-108); Creatinine, Blood 0.52 mg/dL (0.60-1.20); Glucose, Blood 89.0 mg/dL (70-99); Magnesium, Blood 1.6 mg/dL (1.6-2.4); Potassium, Blood 3.4 mmol/L (3.5-5.5); Sodium, Blood 131.0 mmol/L (136-145)
--- NOTE | 2025-06-08 07:29 | NUR ---
NO ACUTE CHANGES DURING SHIFT. PATIENT ALERT AND ORIENTED X4, ABLE TO MAKE NEEDS KNOWN. PATIENT QUADRIPLEGIC. WAFFLE MATTRESS IN PLACE, HEEL PROTECTORS IN PLACE. PATIENT REFUSED TO BE TURNED SIDE TO SIDE EVERY TWO HOURS. RN EDUCATED PATIENT ON THE BENEFITS OF BEING TURNED. PATIENT VERBALIZED UNDERESTANDING BUT STILL DECLINES. PATIENT REQUESTED TO BE FLOATED, PILLOWS PLACED UNDER PATIENT. LIFT USED TO MOVE PATIENT. MENG POWERGLIDE PLACE. PATIENT ABLE TO SWALLOW PILLS WHOLE. WOUND TO COCCYX- DRESSING CHANGE COMPLETED ON DAY SHIFT. SUPRAPUBIC CATH IN PLACE DRAINING TO GRAVITY. LLQ OSTOMY IN PLACE-BROWN OUTPUT. BED IN LOW POSITION WITH WHEELS LOCKED. EASY TOUCH CALL LIGHT WITHIN REACH-PATIENT ABLE TO DEMONSTRATE HOW TO USE IT CORRECTLY.
[2025-06-08 12:48] LABS: Vancomycin, Trough 34.2 ug/mL (5.0-10.0)
--- NOTE | 2025-06-08 16:33 | NUR ---
SHIFT SUMMARY PATIENT DECLINING TURNS AND POSITIONING SEVERAL TIMES THIS SHIFT, STATING DIFFERENT REASONS EACH TIME FOR EXAMPLE, IT'S INTERRUPTING HIS ANA, HE IS TOO COMFORTABLE. WOUND CARE PERFORMED. SUPRAPUBIC CATH CLEANED, DRAINING YELLOW URINE TO GRAVITY. BROWN EFFLUENT FROM OSTOMY, BROWN SOFT STOOL FROM RECTUM. BED BATH GIVEN. SPOKE WITH DR SOLANO REGARDING CHANGING BLOOD SUGAR CHECKS TO PRN PER PATIENT REQUEST HE DOESN'T CHECK THEM AT HOME AND WE HAVE HAD ADEQUATE READINGS HERE.
[2025-06-09 02:35] VITALS: BP 204/124
[2025-06-09 02:36] VITALS: BP 170/107
--- NOTE | 2025-06-09 03:24 | NUR ---
CALLED HOSPITALIST REGARDING 4 SECOND PAUSE ON TELEMETRY. PT HAD NO S/S AND WAS A&OX4 W NO CHEST PAIN/DISCOMFORT OR SOB. PER HOSPITALIST WILL CONTINUE TO MONITOR. ALSO DISCUSSED PTS ELEVATED BP AND DR. SOLANO IS AWARE WELL AND WANTS TO CONTINUE TO MONITOR WELL.
--- NOTE | 2025-06-09 04:30 | NUR ---
NURSE ROUNDING WITH HOSPITALIST DUE TO BRADYCARDIA. HOSPITALIST ASSESSED PT AND PT HAS NO S/S OF BRADYCARDIA. HE DISCUSSED WITH PT POSSIBLE SLEEP APNEA AND OFFERED A CPAP TO TRY BUT PT REFUSED AT THIS TIME. POTASSIUM CURRENTLY RUNNING PER HOSPITALIST ORDERS. HOSPITALIST ORDERED EKG ONCE PT IS AWAKE AND CONTINUE TO MONITOR. HOSPITALIST SAID TO CALL IF PT BECOMES SYMPTOMATIC. WILL CONTINUE TO MONITOR.
--- NOTE | 2025-06-09 05:03 | NUR ---
SHIFT SUMMARY A&OX4. ABLE TO MAKE NEEDS KNOWN. TOLERATED REPOSITIONING WELL. SHEARING NOTED TO MID UPPER COCCYX AND MEPILEX APPLIED AND PT FLOATED. MAIN COCCYX WOUND DRESSING C/D/I. PT HAD A PAUSE IN HR ON HIS TELE OF APPROX. 4 SECONDS WELL ELEVATED BP READING. PT HAD NO S/S. CALLED HOSPITALIST AND RECOMMENDED CONTINUE TO MONITOR. DR. SOLANO AWARE OF ELEVATED BP AND JUST MONITORING AT THIS TIME. FEET ARE IN FOAM HEEL PROTECTORS AND FLOATED ON PILLOWS. CURRENTLY PT IS IN BED AT LOWEST POSITION PLAYING ON HIS COMPUTER WITH CALL LIGHT WITHIN REACH.
[2025-06-09 06:36] LABS: BASOPHILS ABSOLUTE AUTO 0.02 K/mm3 (0.00-0.23); BASOPHILS PERCENT AUTO 1 % (0-2); EOSINOPHILS ABSOLUTE AUTO 0.08 K/mm3 (0.00-0.68); EOSINOPHILS PERCENT AUTO 2 % (0-6); Hematocrit 27.9 % (37.0-53.0); Hemoglobin 9.3 g/dL (13.5-17.5); IMMATURE GRAN ABSOLUTE AUTO 0.01 K/mm3 (0.00-0.10); IMMATURE GRAN PERCENT AUTO 0 % (0-1); LYMPHOCYTES ABSOLUTE AUTO 0.69 K/mm3 (0.84-5.20); LYMPHOCYTES PERCENT AUTO 20 % (21-46); MONOCYTES ABSOLUTE AUTO 0.61 K/mm3 (0.16-1.47); MONOCYTES PERCENT AUTO 18 % (4-13); Mean Corpuscular HGB Conc 33.3 g/dL (31.5-36.5); Mean Corpuscular Volume 77 fL (80-100); NEUTROPHILS ABSOLUTE AUTO 2.07 K/mm3 (1.96-9.15); NEUTROPHILS PERCENT AUTO 60 % (41-73); NRBC ABSOLUTE 0.00 K/mm3 (0.00-0.02); NRBC Auto 0.0 /100 WBC (0.0-0.2); Platelet Count 160 K/mm3 (150-400); RDW Coefficient Variation 16.3 % (11.7-14.2); RDW Standard Deviation 46.1 fL (35.1-46.3)
[2025-06-09 06:59] LABS: Anion Gap 9 mmol/L (3-11); Blood Urea Nitrogen 8 mg/dL (8-24); CO2, Blood 26 mmol/L (21-32); Calcium, Blood 9.1 mg/dL (8.5-10.1); Chloride, Blood 101 mmol/L (98-108); Creatinine, Blood 0.50 mg/dL (0.60-1.20); Glucose, Blood 79 mg/dL (70-99); Magnesium, Blood 1.4 mg/dL (1.6-2.4); Potassium, Blood 3.5 mmol/L (3.5-5.5); Sodium, Blood 132 mmol/L (136-145); Vancomycin, Random 9.5 ug/mL
[2025-06-09 07:45] VITALS: BP 126/94
[2025-06-09] MEDS ORDERED: Magnesium Sulf 2 GM/Water 50ML 50 ML IV ONE (08:25)
[2025-06-09] MEDS ORDERED: CefTRIAXone Sodium 1,000 MG in NS 100 ML IV SCH (11:00)
[2025-06-09] MEDS ORDERED: LOSA25 PO (11:25)
[2025-06-09] MEDS ORDERED: ACET325 PO (11:25)
[2025-06-09] MEDS ORDERED: MACRODANTIN100 M8 PO (11:26)
--- NOTE | 2025-06-09 11:38 | NUR ---
TRANSPORT HOME SET UP FOR 1300 WITH [facility]
--- NOTE | 2025-06-09 13:34 | NUR ---
DISCHARGE SUMMARY PATIENT DISCHARGED HOME VIA GURNEY AND AMBULANCE. POWERGLIDE REMOVED WITHOUT COMPLICATION. SUPRAPUBIC IN PLACE DRAINING TO GRAVITY. OSTOMY INTACT, DRAINING BROWN EFFLUENT. A/O X4. ALL EQUIPMENT, PHONE AND COMPUTER PACKED UP BY PATIENT FATHER AND SENT HOME WITH HIM PER PATIENT REQUEST. DISCHARGE PACKET GIVEN AND REVIEWED, NO QUESTIONS, VERBALIZED UNDERSTANDING. ROCEPHIN RETIMED PER DR SOLANO REQUEST, GIVEN PRIOR TO DISCHARGE.
== END 2025-06-09 13:05 | disposition home or self-care (01) | DRG 698 ==
LOC: ER 17:54 → ICUE 22:27 → PCU 22:27 → ICUE 06-05 03:33 → MEDS 06-07 17:43 → ENPENDDIS 06-09 10:45 → MEDS 06-09 13:05
PROVIDERS: Emergency Medicine; Internal Medicine; Student in an Organized Health Care Education/Training Program; ADMIT Internal Medicine
PROC: 3E03329 Introduction of Other Anti-infective into Peripheral Vein, Percutaneous Approach (ICD-10-PCS; principal; 2025-06-04)
PROC: 0T2BX0Z Change Drainage Device in Bladder, External Approach (ICD-10-PCS; 2025-06-04)
PROC: 3E033XZ Introduction of Vasopressor into Peripheral Vein, Percutaneous Approach (ICD-10-PCS; 2025-06-05)
DX: T83.510A Infection and inflammatory reaction due to cystostomy catheter, initial encounter (principal); A41.02 Sepsis due to Methicillin resistant Staphylococcus aureus; L89.154 Pressure ulcer of sacral region, stage 4; A41.59 Other Gram-negative sepsis; R65.21 Severe sepsis with septic shock; G82.50 Quadriplegia, unspecified; E87.1 Hypo-osmolality and hyponatremia; N12 Tubulo-interstitial nephritis, not specified as acute or chronic; D84.9 Immunodeficiency, unspecified; Y73.2 Prosthetic and other implants, materials and accessory gastroenterology and urology devices associated with adverse incidents; E11.9 Type 2 diabetes mellitus without complications; N30.90 Cystitis, unspecified without hematuria; E78.5 Hyperlipidemia, unspecified; I95.89 Other hypotension; K21.9 Gastro-esophageal reflux disease without esophagitis; E87.6 Hypokalemia; E83.42 Hypomagnesemia; I48.91 Unspecified atrial fibrillation; S14.104S Unspecified injury at C4 level of cervical spinal cord, sequela; V89.2XXS Person injured in unspecified motor-vehicle accident, traffic, sequela; Z98.1 Arthrodesis status; Z93.3 Colostomy status; Z87.440 Personal history of urinary (tract) infections; Z79.84 Long term (current) use of oral hypoglycemic drugs
CPT/HCPCS: 36415; 71045; 74177; 80048; 80053; 80202; 81001; 82330; 82947; 83605; 83735; 84100; 84132; 84443; 85025; 87040; 87077; 87086; 87147; 87186; 87324; 87507; 93005; 93010; 93306; 94760; 94762; 96361; 96365-59; 99285-25; A9270; C1751; J0282; J0696; J2543; J3373; J3475; J3480; J7030; J7040; J7050; J7120; Q9967

== ENCOUNTER → 2025-06-04 | Outpatient (CLI) | payer MEDICARE, OTHER ==
[~2025-06-04] MED LIST changes: +ACET325 PO; +LOSA25 PO; +MACRODANTIN100 M8 PO
== END ==
LOC: LAB 08:00 → LAB SHORT 08:00
DX: R82.90 Unspecified abnormal findings in urine (principal)
CPT/HCPCS: 87086

== ENCOUNTER 2025-06-14 00:58 | Day surgery (SDC) | payer MEDICARE, OTHER ==
[~2025-06-14 00:58] MED LIST changes: +ACET325 PO; +LOSA25 PO; +MACRODANTIN100 M8 PO
== END 2025-06-14 23:00 | disposition home or self-care (01) ==
LOC: WOUND 00:58
DX: L89.324 Pressure ulcer of left buttock, stage 4 (principal); R53.2 Functional quadriplegia; E11.9 Type 2 diabetes mellitus without complications; I10 Essential (primary) hypertension
CPT/HCPCS: A6213; G0463

== ENCOUNTER 2025-06-21 00:33 | Day surgery (SDC) | payer MEDICARE, OTHER | END 2025-06-21 23:00 | disposition home or self-care (01) | LOC: WOUND 00:33 | DX: L89.324 Pressure ulcer of left buttock, stage 4 (principal); E11.69 Type 2 diabetes mellitus with other specified complication; G82.50 Quadriplegia, unspecified | CPT/HCPCS: A6213; G0463 ==

== ENCOUNTER 2025-06-28 02:22 | Day surgery (SDC) | payer MEDICARE, OTHER | END 2025-06-28 23:00 | disposition home or self-care (01) | LOC: WOUND 02:22 | DX: L89.324 Pressure ulcer of left buttock, stage 4 (principal); R53.2 Functional quadriplegia; E11.9 Type 2 diabetes mellitus without complications; I10 Essential (primary) hypertension | CPT/HCPCS: A6213; G0463 ==

== ENCOUNTER → 2025-07-08 | Outpatient (CLI) | payer MEDICARE, OTHER ==
[~2025-07-08] MED LIST changes: +CEFEPIME HCL2 G1 IV; +MAGNESIUM OXID500 MG PO
[2025-07-08 13:24] LABS: Source, Urine Foley catheter
[2025-07-08 13:31] LABS: Bilirubin, Urine Neg (Neg); Glucose Qualitative, Urine Neg (Neg); Ketones, Urine Neg (Neg); Leukocyte Esterase, Urine 3+ (Neg); Protein, Urine 2+ (Neg); Specific Gravity, Urine 1.015 (1.003-1.022); Urobilinogen, Urine NORM (Normal)
[2025-07-08 14:17] LABS: Color, Urine Pale Yellow (P-Yellow)
[2025-07-08 14:18] LABS: White Blood Cells, Urine TNTC /hpf (0-5)
[2025-07-08 14:21] LABS: Yeast/Fungi Urine Many /hpf
== END ==
LOC: LAB SHORT 09:22 → LAB 09:22
PROVIDERS: Nurse Practitioner Family
DX: N13.30 Unspecified hydronephrosis (principal); Z46.6 Encounter for fitting and adjustment of urinary device; Z87.440 Personal history of urinary (tract) infections
CPT/HCPCS: 81001; 87077; 87086; 87186

== ENCOUNTER 2025-07-16 10:50 | Inpatient (IN) | payer MEDICARE, OTHER ==
[~2025-07-16] VITALS: Ht 182.9 cm; Wt 81.9 kg
[~2025-07-16 10:50] MED LIST changes: -CEFEPIME HCL2 G1 IV; -MAGNESIUM OXID500 MG PO
[2025-07-16] MEDS ORDERED: Piperacillin/Tazobactam Sod 3.375 GM in NS 100 ML IV ONE (11:00)
[2025-07-16 11:50] LABS: BASOPHILS ABSOLUTE AUTO 0.01 K/mm3 (0.00-0.23); BASOPHILS PERCENT AUTO 0 % (0-2); EOSINOPHILS ABSOLUTE AUTO 0.10 K/mm3 (0.00-0.68); EOSINOPHILS PERCENT AUTO 3 % (0-6); Hematocrit 37.1 % (37.0-53.0); Hemoglobin 11.9 g/dL (13.5-17.5); IMMATURE GRAN ABSOLUTE AUTO 0.00 K/mm3 (0.00-0.10); IMMATURE GRAN PERCENT AUTO 0 % (0-1); LYMPHOCYTES ABSOLUTE AUTO 0.75 K/mm3 (0.84-5.20); LYMPHOCYTES PERCENT AUTO 20 % (21-46); MONOCYTES ABSOLUTE AUTO 0.48 K/mm3 (0.16-1.47); MONOCYTES PERCENT AUTO 13 % (4-13); Mean Corpuscular HGB Conc 32.1 g/dL (31.5-36.5); Mean Corpuscular Volume 78 fL (80-100); NEUTROPHILS ABSOLUTE AUTO 2.40 K/mm3 (1.96-9.15); NEUTROPHILS PERCENT AUTO 64 % (41-73); NRBC ABSOLUTE 0.00 K/mm3 (0.00-0.02); NRBC Auto 0.0 /100 WBC (0.0-0.2); Platelet Count 100 K/mm3 (150-400); RDW Coefficient Variation 17.2 % (11.7-14.2); RDW Standard Deviation 48.8 fL (35.1-46.3)
[2025-07-16 12:16] LABS: Alanine Aminotransfer (ALT/SGP 23.0 U/L (12-78); Albumin, Blood 3.6 g/dL (3.4-5.0); Albumin/Globulin Ratio 0.8 (0.8-1.8); Anion Gap 7.0 mmol/L (3-11); Aspartate Aminotrans (AST/SGOT 14.0 U/L (12-37); Bilirubin, Total 0.3 mg/dL (0.1-1.0); Blood Urea Nitrogen 7.0 mg/dL (8-24); CO2, Blood 27.0 mmol/L (21-32); Calcium, Blood 9.7 mg/dL (8.5-10.1); Chloride, Blood 95.0 mmol/L (98-108); Creatinine, Blood 0.45 mg/dL (0.60-1.20); Globulin, Blood 4.8 g/dL (2.2-4.0); Glucose, Blood 95.0 mg/dL (70-99); Potassium, Blood 4.0 mmol/L (3.5-5.5); Sodium, Blood 125.0 mmol/L (136-145); Total Protein, Blood 8.4 g/dL (6.4-8.2)
[2025-07-16] MEDS ORDERED: FLU VACC TS2025-26(6MOS UP)/PF 45 MCG/0.5 ML SYRINGE IM SCH (14:50)
[2025-07-16] MEDS ORDERED: Magnesium Hydroxide Conc 10 ML UDC PO PRN (14:50)
[2025-07-16] MEDS ORDERED: Piperacillin/Tazobactam Sod 3.375 GM in NS 100 ML IV SCH ×2 (14:52→23:00)
[2025-07-16] MEDS ORDERED: NS 1,000 ML IV ONE (15:49)
[2025-07-16 19:49] VITALS: BP 140/92
[2025-07-16] MEDS ORDERED: Lactobacil 2-S.Thermo-Bifido 1 1 Cap PO SCH (21:00)
--- NOTE | 2025-07-16 22:44 | NUR ---
ADMIT NOTE 49 YR OLD MALE ADMITTED TO FLOOR FROM THE ED WITH DX OF HYPOVOLUME, AT END OF PREVIOUS SHIFT. PREVIOUS RN REPORTED PT HAVING BEEN HERE IN THE HOSPITAL ON PREVIOUS TIMES. PT COMPLETE QUADROPLEGIC. SPECIAL CALL LIGHT, COMTROL WHICH PT USES WITH HIS MOUTH, AND FLUIDS SET UP FOR PERSEONAL PO ADJUSTMENT WEELL. A/O X 4. AM RN REPORTED PT HAD A DECUB ON HIS COCCYX, POSSIBLE STAAFEF 2, BUT HAS BANDAGE ON IT AND PT REFUSES TO ALLOW STAFF TO ASSESS. CALL PLACED TO GARMENT MENDER WITH THIS ISSUE. GARMENT MENDER (SINPU) NOTIFIED AND VOICED TO DUCUMENT SAID ISSUE ( THIS WRITING), AND I ASKED HIM IF HE WOULD PASS THIS ON TO AM MD FOR POSSIBLE FOLLOW UP, HE SAID HE WOULD. PT HAS SUPRAPUBIC CATH, WHICH WAS RECENTLY CHANGED OUT PER AM RN REPORT. REPOSITIONED, TOLERATING PO MEDS WITH ASSIST. IV ANTIBIOTIC INFUSING. CALL LIGHT IN REACH ( MENTIOED ABOVE). RAILS UP X 2. HOB ELEVATED FOR COMFORT. WILL CONT TO MONITPR
--- NOTE | 2025-07-16 22:52 | NUR ---
CHARGE NURSE NOTIFIED OF PT NONCOMPLIANCE RE DRESSING ASSESSMENT, AND VOICED WOULD DISCUSS IT WITH AM GHARGE NURSE FOR POSSIBLE SOLUTION.
[2025-07-17 03:44] VITALS: BP 127/95
--- NOTE | 2025-07-17 04:44 | NUR ---
MEDIA SERVICES COORDINATOR SUMMARY ADMITTED TO FLOOR FROM THE ED PRIOR TO SHIFT START WITH DX OF HYPOVOLUME. IS QUADROPLEGIC, ABLE TO USE CALL LIGHT VIA MOUTHCONTROL AND DRINK FROM SPECIAL BOTTLE WITH STRAW TO HIS MOUTH. A/O X 3-4. ON CONTACT ISOLATION FOR MRSA. SUPRAPUBIC CATH DRAINING CLEAR YELLOW, ILLEOSTOMY CHANGED THIS SHIFT. AWAKE AT INTERVALS, REFUSED TO ALLOW STAFF TO SEE SKIN ANOMALY OF COCCYX AREA, WELL SHOOTER AND CHARGE NURSE NOTIFIED, AM TO ATTEMPT TO ASSESS LATER. IV ANTIBIOTICS INFUSING, AND ABLE TO TAKE PO MEDS WITH H2O. RAILS UP X 2, BED IN LOW POSITION FOR SAFETY. WILL CONTINUE TO MONITOR
[2025-07-17 05:49] LABS: BASOPHILS ABSOLUTE AUTO 0.02 K/mm3 (0.00-0.23); BASOPHILS PERCENT AUTO 1 % (0-2); EOSINOPHILS ABSOLUTE AUTO 0.06 K/mm3 (0.00-0.68); EOSINOPHILS PERCENT AUTO 1 % (0-6); Hematocrit 35.7 % (37.0-53.0); Hemoglobin 11.6 g/dL (13.5-17.5); IMMATURE GRAN ABSOLUTE AUTO 0.01 K/mm3 (0.00-0.10); IMMATURE GRAN PERCENT AUTO 0 % (0-1); LYMPHOCYTES ABSOLUTE AUTO 0.55 K/mm3 (0.84-5.20); LYMPHOCYTES PERCENT AUTO 13 % (21-46); MONOCYTES ABSOLUTE AUTO 0.42 K/mm3 (0.16-1.47); MONOCYTES PERCENT AUTO 10 % (4-13); Mean Corpuscular HGB Conc 32.5 g/dL (31.5-36.5); Mean Corpuscular Volume 78 fL (80-100); NEUTROPHILS ABSOLUTE AUTO 3.21 K/mm3 (1.96-9.15); NEUTROPHILS PERCENT AUTO 75 % (41-73); NRBC ABSOLUTE 0.00 K/mm3 (0.00-0.02); NRBC Auto 0.0 /100 WBC (0.0-0.2); Platelet Count 103 K/mm3 (150-400); RDW Coefficient Variation 17.5 % (11.7-14.2); RDW Standard Deviation 49.2 fL (35.1-46.3)
[2025-07-17 06:01] LABS: Anion Gap 8.0 mmol/L (3-11); Blood Urea Nitrogen 6.0 mg/dL (8-24); CO2, Blood 26.0 mmol/L (21-32); Calcium, Blood 9.6 mg/dL (8.5-10.1); Chloride, Blood 102.0 mmol/L (98-108); Creatinine, Blood 0.57 mg/dL (0.60-1.20); Glucose, Blood 67.0 mg/dL (70-99); Potassium, Blood 4.2 mmol/L (3.5-5.5); Sodium, Blood 132.0 mmol/L (136-145)
[2025-07-17 07:29] VITALS: BP 149/89
[2025-07-17] MEDS ORDERED: Arginine/Glutamine/Calcium Hmb 1 Packet PO SCH (09:00)
[2025-07-17] MEDS ORDERED: Enoxaparin 40 MG/0.4 ML SYR SC SCH (09:00)
[2025-07-17] MEDS ORDERED: GuaiFENesin 100 MG/5 ML 5ML UDC PO PRN (11:55)
[2025-07-17] MEDS ORDERED: NS 250 ML IV PRN (12:35)
[2025-07-17 15:17] VITALS: BP 107/76
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
[2025-07-17 21:14] VITALS: BP 120/88
--- NOTE | 2025-07-18 04:48 | NUR ---
SHIFT SUMMARY PATIENT A/OX4, ABLE TO MAKE NEEDS KNOWN. PLEASANT AND COOPERATIVE WITH CARE. REPOSITIONED Q2 HOURS. CHRONIC PRESSURE WOUND DRESSING CDI. SUPRAPUBIC CATHETER CARE PROVIDED. OSTOMY FUNCTIONING PROPERLY. NO OTHER CONCERNS AT THIS TIME, WILL CONTINUE TO MONITOR.
[2025-07-18 05:39] VITALS: BP 108/76
[2025-07-18 06:10] LABS: BASOPHILS ABSOLUTE AUTO 0.03 K/mm3 (0.00-0.23); BASOPHILS PERCENT AUTO 1 % (0-2); EOSINOPHILS ABSOLUTE AUTO 0.06 K/mm3 (0.00-0.68); EOSINOPHILS PERCENT AUTO 1 % (0-6); Hematocrit 34.2 % (37.0-53.0); Hemoglobin 11.2 g/dL (13.5-17.5); IMMATURE GRAN ABSOLUTE AUTO 0.01 K/mm3 (0.00-0.10); IMMATURE GRAN PERCENT AUTO 0 % (0-1); LYMPHOCYTES ABSOLUTE AUTO 0.87 K/mm3 (0.84-5.20); LYMPHOCYTES PERCENT AUTO 14 % (21-46); MONOCYTES ABSOLUTE AUTO 0.70 K/mm3 (0.16-1.47); MONOCYTES PERCENT AUTO 11 % (4-13); Mean Corpuscular HGB Conc 32.7 g/dL (31.5-36.5); Mean Corpuscular Volume 78 fL (80-100); NEUTROPHILS ABSOLUTE AUTO 4.46 K/mm3 (1.96-9.15); NEUTROPHILS PERCENT AUTO 73 % (41-73); NRBC ABSOLUTE 0.00 K/mm3 (0.00-0.02); NRBC Auto 0.0 /100 WBC (0.0-0.2); Platelet Count 103 K/mm3 (150-400); RDW Coefficient Variation 17.6 % (11.7-14.2); RDW Standard Deviation 50.2 fL (35.1-46.3)
[2025-07-18 06:50] LABS: Anion Gap 11.0 mmol/L (3-11); Blood Urea Nitrogen 19.0 mg/dL (8-24); CO2, Blood 23.0 mmol/L (21-32); Calcium, Blood 9.9 mg/dL (8.5-10.1); Chloride, Blood 100.0 mmol/L (98-108); Creatinine, Blood 0.68 mg/dL (0.60-1.20); Glucose, Blood 83.0 mg/dL (70-99); Magnesium, Blood 1.5 mg/dL (1.6-2.4); Potassium, Blood 3.8 mmol/L (3.5-5.5); Sodium, Blood 130.0 mmol/L (136-145)
[2025-07-18 07:23] VITALS: BP 99/71
[2025-07-18] MEDS ORDERED: Mag Sulfate 1 GM/D5% 100ML 100 ML IV STA (07:31)
[2025-07-18] MEDS ORDERED: NS 1,000 ML IV SCH (08:00)
[2025-07-18 08:37] VITALS: BP 106/82
[2025-07-18 10:00] VITALS: BP 132/100
--- NOTE | 2025-07-18 10:48 | NUR ---
AM NOTE: PATIENT ALERT AND ORIENTED X4. QUADRAPLEGIC, Q2 TURNS AND NEEDED. PERRLA. DENIES PAIN THIS MORNING. ON ROOM AIR SATING ABOVE 95%. LUNG SOUNDS CLEAR AND DIMINISHED. DENIES SOB/COUGH. DENIES CHEST PAIN/PRESSURE/PALPITATIONS. SBP 90-100'S. SCD'S. IV FLUIDS INFUSING PER EMAR. MAG REPLACED THIS MORNING. BOWEL TONES PRESENT. TOLERATING PO DIET WITHOUT ISSUES. FEEDER. COLOSTOMY IN PLACE WITH BROWN SOFT STOOL. OSTOMY BAG CHANGED THIS MORNING PER PATIENT REQUEST. SUPRAPUBIC CATH IN PLACE DRAINING CLEAR/YELLOW URINE. CATH CARE COMPLETED. SKIN PALE WITH STAGE 4 PRESSURE WOUND TO BOTTOM. SEE CHART PHOTOS AND WOUND CARE ORDERS. DR. SMITH TO BEDSIDE THIS MORNING AND THIS RN PRESENT. THIS RN UPDATED ON BLOOD PRESSURE AND PATIENTS REQUEST TO DISCONTINUE BLOOD SUGAR CHECKS. ORDERS TO DISCONTINUE BLOOD SUGAR CHECKS. ORDER PLACED AND APPELLATE CONFEREE NAINA UPDATED. PATIENT DENIES NEEDS AT THIS TIME. THIS RN REPORTED OFF TO MICHAEL FABIAN AT 1000.
[2025-07-18 15:43] VITALS: BP 99/73
--- NOTE | 2025-07-18 16:27 | NUR ---
SHIFT SUMMARY ASSUMED CARE OF THE PATIENT AT 1000 TODAY. THIS RN AGREES WITH PREVIOUS NURSE'S ASSESSMENT DOCUMENTATION. AIR WAFFLE PLACED TO BED TO HELP WITH PRESSURE. REPOSITIONS OFFERED EVERY 2 HOURS. PT AGREEABLE TO REPOSITIONING FOR MOST OF THESE. WOUND CARE COMPLETED TODAY. NO OTHER ACUTE CHANGES IN ASSESSMENT. VS REVIEWED. LEWIS PATENT & DRAINING. PT DENIES OTHER NEEDS AT THIS TIME. CALL LIGHT IN REACH.
[2025-07-18 20:55] VITALS: BP 139/86
[2025-07-19] VITALS (7 sets, daily range): BP systolic 98–184; BP diastolic 54–105
[2025-07-19 06:20] LABS: Hematocrit 34.1 % (37.0-53.0); Hemoglobin 10.9 g/dL (13.5-17.5); Mean Corpuscular HGB Conc 32.0 g/dL (31.5-36.5); Mean Corpuscular Volume 79 fL (80-100); RDW Coefficient Variation 17.5 % (11.7-14.2); RDW Standard Deviation 50.4 fL (35.1-46.3)
[2025-07-19 06:22] LABS: BASOPHILS ABSOLUTE AUTO 0.02 K/mm3 (0.00-0.23); BASOPHILS PERCENT AUTO 1 % (0-2); EOSINOPHILS ABSOLUTE AUTO 0.09 K/mm3 (0.00-0.68); EOSINOPHILS PERCENT AUTO 3 % (0-6); IMMATURE GRAN ABSOLUTE AUTO 0.00 K/mm3 (0.00-0.10); IMMATURE GRAN PERCENT AUTO 0 % (0-1); LYMPHOCYTES ABSOLUTE AUTO 0.55 K/mm3 (0.84-5.20); LYMPHOCYTES PERCENT AUTO 17 % (21-46); MONOCYTES ABSOLUTE AUTO 0.47 K/mm3 (0.16-1.47); MONOCYTES PERCENT AUTO 14 % (4-13); NEUTROPHILS ABSOLUTE AUTO 2.19 K/mm3 (1.96-9.15); NEUTROPHILS PERCENT AUTO 66 % (41-73); NRBC ABSOLUTE 0.00 K/mm3 (0.00-0.02); NRBC Auto 0.0 /100 WBC (0.0-0.2)
[2025-07-19 06:27] LABS: Platelet Count 98 K/mm3 (150-400)
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
[2025-07-19 06:51] LABS: Anion Gap 10.0 mmol/L (3-11); Blood Urea Nitrogen 17.0 mg/dL (8-24); CO2, Blood 24.0 mmol/L (21-32); Calcium, Blood 9.7 mg/dL (8.5-10.1); Chloride, Blood 102.0 mmol/L (98-108); Creatinine, Blood 0.58 mg/dL (0.60-1.20); Glucose, Blood 73.0 mg/dL (70-99); Magnesium, Blood 1.4 mg/dL (1.6-2.4); Potassium, Blood 3.6 mmol/L (3.5-5.5); Sodium, Blood 132.0 mmol/L (136-145)
[2025-07-19] MEDS ORDERED: MAGNESIUM OXID500 MG PO (13:30)
[2025-07-19] MEDS ORDERED: CEFEPIME HCL2 G1 IV (13:31)
[2025-07-19] MEDS ORDERED: Cefepime HCl 2,000 MG in NS 100 ML IV SCH (14:30)
--- NOTE | 2025-07-19 17:50 | NUR ---
CALL TO [facility] TO SCHEDULE RIDE . SPOKE albin BARNES WHO STATES PATIENT IS SCHEDULED FOR PICKUP TONIGHT; WILL LIKELY BE A MINIMUM OF ONE HOUR IF NOT LONGER D/T LACK OF AMBULANCE.
--- NOTE | 2025-07-19 18:32 | NUR ---
SHIFT SUMMARY PATIENT IS A&OX4, PLEASANT AND COOPERATIVE WITH CARE. HE IS ON ROOM AIR AND DOES NOT HAVE TELE. HE IS UNABLE TO USE THE CALL SYSTEM DUE TO QUADRIPLEGIA STATUS. THIS RN HAS STATIONED JUST OUTSIDE THE ROOM AND ROUNDS FREQUENTLY. SUPRAPUBIC CATHETER IS CLEAN AND FREE FROM SX/SX OF INFX. URINE IS CLEAR AND YELLOW DRAINING TO GRAVITY. OSTOMY POUCH DRY INTACT, AND PRODUCING TYPICAL STOOL. PATIENT IS TO DISCHARGE ANYTIME ONCE HIS RIDE ARRIVES. HIS FATHER LEFT AROUND 1600 WITH ALL OF THE PATIENTS BELONGINGS. A LEFT UPPER ARM POWERGLIDE WAS PLACED FOR ADMINISTRATION OF AT HOME ANTIBIOTICS. HE IS AWAITING HIS RIDE HOME, CURRENTLY. BED IS LOW AND LOCKED.
--- NOTE | 2025-07-19 22:04 | NUR ---
SHIFT SUMMARY PATIENT WAS DISCHARGED ABOUT 745, CAREGIVER AND STAFF WENT THROUGH THE ROOM WITH PATIENT WITNESS, EDUCATION DONE ABOUT CONDITION TRANSPORTED BY BED TO MEDICAL TRANSPORT. NO DISTRESS NOTED.
== END 2025-07-19 19:45 | disposition home health service (06) | DRG 698 ==
LOC: ER 10:50 → MEDS 10:51
PROVIDERS: Emergency Medicine; ADMIT Internal Medicine
DX: T83.510A Infection and inflammatory reaction due to cystostomy catheter, initial encounter (principal); G82.50 Quadriplegia, unspecified; L89.154 Pressure ulcer of sacral region, stage 4; Z16.24 Resistance to multiple antibiotics; K21.9 Gastro-esophageal reflux disease without esophagitis; E11.9 Type 2 diabetes mellitus without complications; E78.5 Hyperlipidemia, unspecified; B96.5 Pseudomonas (aeruginosa) (mallei) (pseudomallei) as the cause of diseases classified elsewhere; I95.89 Other hypotension; Z87.828 Personal history of other (healed) physical injury and trauma; Z98.1 Arthrodesis status; Z86.19 Personal history of other infectious and parasitic diseases; Z87.891 Personal history of nicotine dependence
CPT/HCPCS: 36415; 80048; 80053; 82947; 83036; 83605; 83735; 85025; 87040; 87077; 87086; 87186; 96365; 96376; 99284-25; A9270; C1751; G0378; J0692; J2543; J3475; J7030; J7050

== ENCOUNTER 2025-07-26 06:43 | Day surgery (SDC) | payer MEDICARE, OTHER ==
[~2025-07-26 06:43] MED LIST changes: +CEFEPIME HCL2 G1 IV; +MAGNESIUM OXID500 MG PO
== END 2025-07-26 23:00 | disposition home or self-care (01) ==
LOC: WOUND 06:43
DX: L89.324 Pressure ulcer of left buttock, stage 4 (principal); R53.2 Functional quadriplegia; E11.9 Type 2 diabetes mellitus without complications
CPT/HCPCS: A6213; G0463

== ENCOUNTER 2025-08-01 12:35 | Emergency (ER) | payer MEDICARE, OTHER ==
[~2025-08-01] VITALS: Ht 182.9 cm; Wt 79.4 kg
[2025-08-01 12:43] VITALS: BP 97/79
[2025-08-01 13:52] LABS: Hematocrit 43.9 % (37.0-53.0); Hemoglobin 14.8 g/dL (13.5-17.5); Mean Corpuscular HGB Conc 33.7 g/dL (31.5-36.5); Mean Corpuscular Volume 76 fL (80-100); NRBC ABSOLUTE 0.00 K/mm3 (0.00-0.02); NRBC Auto 0.0 /100 WBC (0.0-0.2); Platelet Count 345 K/mm3 (150-400); RDW Coefficient Variation 16.8 % (11.7-14.2); RDW Standard Deviation 45.1 fL (35.1-46.3)
[2025-08-01] MEDS ORDERED: FentaNYL Citrate 50 MCG/ML 2 ML Injection IV ONE (14:10)
[2025-08-01] MEDS ORDERED: Midazolam HCl 1MG / ML 2ML Vial IV ONE ×2 (14:15→15:28)
[2025-08-01] MEDS ORDERED: Pantoprazole Sodium 40 MG Injection IV ONE (14:15)
[2025-08-01] MEDS ORDERED: NS 1,000 ML IV SCH (14:15)
[2025-08-01 14:17] LABS: Alanine Aminotransfer (ALT/SGP 26.0 U/L (12-78); Albumin, Blood 4.7 g/dL (3.4-5.0); Albumin/Globulin Ratio 0.8 (0.8-1.8); Anion Gap 18.0 mmol/L (3-11); Aspartate Aminotrans (AST/SGOT 28.0 U/L (12-37); Bilirubin, Total 0.5 mg/dL (0.1-1.0); Blood Urea Nitrogen 12.0 mg/dL (8-24); CO2, Blood 24.0 mmol/L (21-32); Chloride, Blood 84.0 mmol/L (98-108); Creatinine, Blood 1.17 mg/dL (0.60-1.20); Globulin, Blood 5.8 g/dL (2.2-4.0); Glucose, Blood 128.0 mg/dL (70-99); Potassium, Blood 3.5 mmol/L (3.5-5.5); Sodium, Blood 122.0 mmol/L (136-145)
[2025-08-01 14:43] LABS: BASOPHILS ABSOLUTE MAN 0.00 K/mm3 (0.00-0.23); BASOPHILS PERCENT MAN 0 % (0-2); EOSINOPHILS ABSOLUTE MAN 0.00 K/mm3 (0.00-0.68); EOSINOPHILS PERCENT MAN 0 % (0-6); LYMPHOCYTES ABSOLUTE MAN 1.37 K/mm3 (0.84-5.20); LYMPHOCYTES PERCENT MAN 7 % (21-46); MONOCYTES ABSOLUTE MAN 1.17 K/mm3 (0.16-1.47); MONOCYTES PERCENT MAN 6 % (4-13); NEUTROPHILS ABSOLUTE MAN 17.03 K/mm3 (1.96-9.15); SEG NEUTROPHILS PERCENT MAN 87 % (41-73)
[2025-08-01 14:49] LABS: Calcium, Blood 13.0 mg/dL (8.5-10.1); Total Protein, Blood 10.5 g/dL (6.4-8.2)
[2025-08-01] MEDS ORDERED: Sodium Bicarb 8.4% 50 mEq Syringe IV ONE (15:28)
[2025-08-01] MEDS ORDERED: Etomidate 2MG / ML 10ML Vial IV ONE (15:28)
[2025-08-01] MEDS ORDERED: Amiodarone HCl 50 MG / ML 3 ML Amp IV ONE (15:28)
[2025-08-01] MEDS ORDERED: Rocuronium Bromide 10 MG/ML 5ML Injection IV ONE (15:28)
--- NOTE | 2025-08-01 16:22 | NUR ---
The patient is receiving CPR while I wait with his step father Presley. Presley is the only father that the patient has ever known and been his main caregiver since 2018 when Presley's and the patient's mother . Dr. Morales comes out of the patient's room several times and explains what is happening with the patient's care and then at [address] [facility] Dr. Morales campassionately tells Presley that his son had , again explaining all the clinical efforts that were made. After the room is cleared out Presley and this Grounding Engineer go into the patient's room. I provided grief support, a prayer upon Presley's request and conduct a life review of the patient's life and their strong cali. We determine that [facility] is the best option for a home due to location. We discuss the family unit complications and dynamics. Presley then makes phone calls to the patient's grown children, and other close family members. I then walk Presley to his truck, he hugs me and voices his appreciation and shows signs of being comforted.
== END 2025-08-01 18:57 ==
LOC: ER 12:35
PROVIDERS: Emergency Medicine
DX: I46.9 Cardiac arrest, cause unspecified (principal); K21.9 Gastro-esophageal reflux disease without esophagitis; E11.9 Type 2 diabetes mellitus without complications; Z87.891 Personal history of nicotine dependence; E78.5 Hyperlipidemia, unspecified; Z79.84 Long term (current) use of oral hypoglycemic drugs; Z79.899 Other long term (current) drug therapy
CPT/HCPCS: 31500; 80053; 83690; 85025; 92950; 94002; 99285; J0282; J2250; J2470; J7030